=== PATIENT | male | born 1965 | race African-American/Black ===

== ENCOUNTER 2016-06-10 19:28 | Inpatient (IN) | payer OTHER ==
[2016-06-10 20:49] VITALS: BMI 29.5
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
[2016-06-10] MEDS ORDERED: hydrOXYzine PAMOATE 50 MG CAPSULE (FP) PO PRN (21:15)
[2016-06-10] MEDS ORDERED: LOPERAMIDE HCL 2 MG CAPSULE PO PRN (21:15)
[2016-06-10] MEDS ORDERED: MAG HYDROX/AL HYDROX/SIMETH 30 ML UNIT-DOSE CUP PO PRN (21:15)
[2016-06-10] MEDS ORDERED: MAGNESIUM HYDROX 2400MG/30ML ORAL SUSPENSION 30 ML CUP PO PRN (21:15)
[2016-06-10] MEDS ORDERED: P-EPHED 60MG/TRIPROLIDI 2.5MG TABLET PO PRN (21:15)
[2016-06-10] MEDS ORDERED: MENTHOL/PHENOL 1 EACH UD MM PRN (21:15)
[2016-06-10] MEDS ORDERED: diphenhydrAMINE HCL 50 MG CAPSULE PO PRN (21:15)
[2016-06-10] MEDS ORDERED: MAGNESIUM CITRATE 300 ML BOTTLE PO PRN (21:15)
[2016-06-10] MEDS ORDERED: chlordiazePOXIDE HCL 25 MG CAPSULE PO PRN (21:15)
[2016-06-10] MEDS ORDERED: guaiFENesin/D-METHORPHAN HB 10 ML UNIT-DOSE CUPS PO PRN (21:15)
[2016-06-10] MEDS ORDERED: ACETAMINOPHEN 325 MG TABLET (FP) PO PRN (21:15)
[2016-06-10] MEDS ORDERED: ALBUTEROL SO4 6.7 GM HFA INHALER IH PRN (21:28)
[2016-06-10] MEDS: METOPROLOL TARTRATE 25 MG TABLET (FP) PO SCH (23:02)
[2016-06-10] MEDS: ATORVASTATIN CA 40 MG TABLET (FP) PO SCH (23:02)
[2016-06-10] MEDS: THIAMINE HCL 100 MG TABLET (FP) PO SCH (23:02)
[2016-06-10] MEDS: chlordiazePOXIDE HCL 25 MG CAPSULE PO SCH (23:02)
[2016-06-10 23:36] LABS: URINE APPEARANCE CLEAR; URINE BILIRUBIN NEGATIVE (NEGATIVE); URINE BLOOD NEGATIVE (NEGATIVE); URINE COLOR YELLOW; URINE GLUCOSE (UA) 1+ (NEGATIVE); URINE KETONE NEGATIVE (NEGATIVE); URINE LEUK ESTERASE NEGATIVE (NEGATIVE); URINE NITRITE NEGATIVE (NEGATIVE); URINE UROBILINOGEN NEGATIVE E.U./dl (0.2-1.0)
[2016-06-10 23:42] LABS: URINE PROTEIN 2+ (NEGATIVE)
[2016-06-10 23:43] LABS: URINE MUCUS RARE; URINE RBC 2 /hpf (0-3); URINE WBC 1 /hpf (3-5)
[2016-06-11] MEDS: chlordiazePOXIDE HCL 25 MG CAPSULE PO SCH ×3 (05:44→17:54)
--- NOTE | 2016-06-11 10:06 | EKG ---
Test Reason : Blood Pressure : / mmHG Vent. Rate : 064 BPM Atrial Rate : 064 BPM P-R Int : 162 ms QRS Dur : 092 ms QT Int : 406 ms P-R-T Axes : 076 063 053 degrees QTc Int : 418 ms NORMAL SINUS RHYTHM NORMAL ECG NO PREVIOUS ECGS AVAILABLE Confirmed by MIRACLE DRISCOLL MD ([id number]) on 06/11/2016 10:06:11 AM Referred By: Confirmed By:MIRACLE DRISCOLL MD
[2016-06-11 10:27] LABS: MCH 29.6 pg (25.7-33.7); MCHC 32.7 g/dl (32.0-35.9); MEAN CELL VOLUME 90.4 fl (80-96); MEAN PLT VOLUME 7.8 fl (7.5-11.1); PLATELET COUNT 200 K/MM3 (134-434); RDW 14.3 % (11.9-15.9); WHITE BLOOD COUNT 5.9 K/mm3 (4.0-10.0)
[2016-06-11] MEDS: ASPIRIN 81 MG CHEWABLE TABLETS PO SCH (10:49)
[2016-06-11] MEDS: CLOPIDOGREL BISULFATE 75 MG TABLET (FP) PO SCH (10:49)
[2016-06-11] MEDS: PRENATAL VITAMINS W/ FOLIC ACID TABLET (FP) PO SCH (10:50)
[2016-06-11] MEDS: METOPROLOL TARTRATE 25 MG TABLET (FP) PO SCH ×2 (10:52→22:54)
[2016-06-11] MEDS: LISINOPRIL 5 MG TABLET (FP) PO SCH (10:52)
[2016-06-11 11:12] LABS: ALBUMIN 3.5 g/dl (3.4-5.0); BILIRUBIN,TOTAL 0.5 mg/dL (0.2-1.0); CALCIUM 8.5 mg/dL (8.5-10.1); COCKROFT - GAULT 81.79; CREATININE 1.3 mg/dL (0.7-1.3); TOT PROT 7.2 g/dl (6.4-8.2)
--- NOTE | 2016-06-11 12:55 | PN ---
S CIWA - CIWA Score Nausea/Vomitin Muscle Tremors: 2 Anxiety: 2 Agitation: 2 Paroxysmal Sweats: 2 Orientation: 0-Oriented Tacttile Disturbances: 1-Very Mild Itch/Numbness Auditory Disturbances: 0-None Visual Disturbances: 1-Very Mild Sensitivity Headache: 2-Mild CIWA-Ar Total Score: 14 S Progress Note (SOAP) Subjective: sleep interruption, anxiety, shakes, sweats and muscle aches Objective: 06/11/16 12:54 Vital Signs - 8 hr 06/11/16 06/11/16 06:43 09:41 Temperature 96.6 F L 98.1 F Pulse Rate 67 75 Respiratory 18 18 Rate Blood Pressure 112/68 96/63 Laboratory Last Values WBC 5.9 K/mm3 (4.0-10.0) 06/11/16 07:50 RBC 4.74 M/mm3 (4.00-5.60) 06/11/16 07:50 Hgb 14.0 GM/dL (11.7-16.9) D 06/11/16 07:50 Hct 42.8 % (35.4-49) 06/11/16 07:50 MCV 90.4 fl (80-96) 06/11/16 07:50 MCHC 32.7 g/dl (32.0-35.9) 06/11/16 07:50 RDW 14.3 % (11.9-15.9) 06/11/16 07:50 Plt Count 200 K/MM3 (134-434) 06/11/16 07:50 MPV 7.8 fl (7.5-11.1) 06/11/16 07:50 Sodium 140 mmol/L (136-145) 06/11/16 07:50 Potassium 4.3 mmol/L (3.5-5.1) 06/11/16 07:50 Chloride 105 mmol/L (98-107) 06/11/16 07:50 Carbon Dioxide 27 mmol/L (21-32) 06/11/16 07:50 Anion Gap 8 (8-16) 06/11/16 07:50 BUN 15 mg/dL (7-18) 06/11/16 07:50 Creatinine 1.3 mg/dL (0.7-1.3) 06/11/16 07:50 Creat Clearance w eGFR 57.75 (>60) 06/11/16 07:50 Random Glucose 98 mg/dL (74-106) 06/11/16 07:50 Calcium 8.5 mg/dL (8.5-10.1) 06/11/16 07:50 Total Bilirubin 0.5 mg/dL (0.2-1.0) D 06/11/16 07:50 AST 18 U/L (15-37) D 06/11/16 07:50 ALT 18 U/L (12-78) D 06/11/16 07:50 Alkaline Phosphatase 107 U/L (45-117) 06/11/16 07:50 Total Protein 7.2 g/dl (6.4-8.2) 06/11/16 07:50 Albumin 3.5 g/dl (3.4-5.0) 06/11/16 07:50 Urine Color Yellow 06/10/16 23:25 Urine Appearance Clear 06/10/16 23:25 Urine pH 5.0 (5.0-8.0) 06/10/16 23:25 Ur Specific [place] 1.026 (1.001-1.035) 06/10/16 23:25 Urine Protein 2+ (NEGATIVE) H 06/10/16 23:25 Urine Glucose (UA) 1+ (NEGATIVE) H 06/10/16 23:25 Urine Ketones Negative (NEGATIVE) 06/10/16 23:25 Urine Blood Negative (NEGATIVE) 06/10/16 23:25 Urine Nitrite Negative (NEGATIVE) 06/10/16 23:25 Urine Bilirubin Negative (NEGATIVE) 06/10/16 23:25 Urine Urobilinogen Negative E.U./dl (0.2-1.0) 06/10/16 23:25 Ur Leukocyte Esterase Negative (NEGATIVE) 06/10/16 23:25 Urine RBC 2 /hpf (0-3) 06/10/16 23:25 Urine WBC 1 /hpf (3-5) 06/10/16 23:25 Ur Epithelial Cells Rare /hpf (FEW) 06/10/16 23:25 Urine Mucus Rare 06/10/16 23:25 labs noted Assessment: 06/11/16 12:54 withdrawal sx Plan: continue detox
[2016-06-11] MEDS: THIAMINE HCL 100 MG TABLET (FP) PO SCH (22:43)
[2016-06-11] MEDS: chlordiazePOXIDE 5 MG CAPSULE PO SCH (22:43)
[2016-06-11] MEDS: ATORVASTATIN CA 40 MG TABLET (FP) PO SCH (22:43)
[2016-06-12] MEDS: chlordiazePOXIDE 5 MG CAPSULE PO SCH ×3 (05:45→18:13)
[2016-06-12] MEDS: ASPIRIN 81 MG CHEWABLE TABLETS PO SCH (10:48)
[2016-06-12] MEDS: CLOPIDOGREL BISULFATE 75 MG TABLET (FP) PO SCH (10:48)
[2016-06-12] MEDS: METOPROLOL TARTRATE 25 MG TABLET (FP) PO SCH ×2 (10:48→22:47)
[2016-06-12] MEDS: PRENATAL VITAMINS W/ FOLIC ACID TABLET (FP) PO SCH (10:48)
[2016-06-12] MEDS: LISINOPRIL 5 MG TABLET (FP) PO SCH (10:51)
--- NOTE | 2016-06-12 15:13 | PN ---
[facility] CIWA - CIWA Score Nausea/Vomitin-Mild Nausea/No Vomiting Muscle Tremors: 4-Moderate,w/Arms Extend Anxiety: 4-Mod. Anxious/Guarded Agitation: 4-Moderately Restless Paroxysmal Sweats: No Perspiration Orientation: 0-Oriented Tacttile Disturbances: 1-Very Mild Itch/Numbness Auditory Disturbances: 0-None Visual Disturbances: 0-None Headache: 2-Mild CIWA-Ar Total Score: 16 S Progress Note (SOAP) Subjective: Anxious, sweating, nauseous, interrupted sleep Objective: 06/12/16 15:10 Last Vital Signs Temp Pulse Resp BP Pulse Ox 97.1 F L 71 18 110/66 06/12/16 13:17 06/12/16 13:17 06/12/16 13:17 06/12/16 13:17 Laboratory Tests 06/10/16 06/11/16 06/11/16 23:25 07:50 07:50 WBC 5.9 RBC 4.74 Hgb 14.0 D Hct 42.8 MCV 90.4 MCHC 32.7 RDW 14.3 Plt Count 200 MPV 7.8 Sodium 140 Potassium 4.3 Chloride 105 Carbon Dioxide 27 Anion Gap 8 BUN 15 Creatinine 1.3 Creat Clearance w eGFR 57.75 Random Glucose 98 Calcium 8.5 Total Bilirubin 0.5 D AST 18 D ALT 18 D Alkaline Phosphatase 107 Total Protein 7.2 Albumin 3.5 Urine Color Yellow Urine Appearance Clear Urine pH 5.0 Ur Specific [place] 1.026 Urine Protein 2+ H Urine Glucose (UA) 1+ H Urine Ketones Negative Urine Blood Negative Urine Nitrite Negative Urine Bilirubin Negative Urine Urobilinogen Negative Ur Leukocyte Esterase Negative Urine RBC 2 Urine WBC 1 Ur Epithelial Cells Rare Urine Mucus Rare RPR Titer 06/11/16 07:50 WBC RBC Hgb Hct MCV MCHC RDW Plt Count MPV Sodium Potassium Chloride Carbon Dioxide Anion Gap BUN Creatinine Creat Clearance w eGFR Random Glucose Calcium Total Bilirubin AST ALT Alkaline Phosphatase Total Protein Albumin Urine Color Urine Appearance Urine pH Ur Specific [place] Urine Protein Urine Glucose (UA) Urine Ketones Urine Blood Urine Nitrite Urine Bilirubin Urine Urobilinogen Ur Leukocyte Esterase Urine RBC Urine WBC Ur Epithelial Cells Urine Mucus RPR Titer Nonreactive Labs noted: UA with 2+ protein and 1+ glucose Assessment: 06/12/16 15:12 Withdrawal symptoms Noted with proteinuria and glycosuria Plan: Continue detox Proteinuria and glycosuria: encouraged to drink lots of water, repeat UA
[2016-06-12] MEDS: THIAMINE HCL 100 MG TABLET (FP) PO SCH (22:46)
[2016-06-12] MEDS: chlordiazePOXIDE HCL 10 MG CAPSULE PO SCH (22:47)
[2016-06-12] MEDS: ATORVASTATIN CA 40 MG TABLET (FP) PO SCH (22:47)
[2016-06-13] MEDS: chlordiazePOXIDE HCL 10 MG CAPSULE PO SCH ×4 (05:08→16:53)
[2016-06-13] MEDS: ASPIRIN 81 MG CHEWABLE TABLETS PO SCH (10:39)
[2016-06-13] MEDS: PRENATAL VITAMINS W/ FOLIC ACID TABLET (FP) PO SCH (10:39)
[2016-06-13] MEDS: CLOPIDOGREL BISULFATE 75 MG TABLET (FP) PO SCH (10:39)
[2016-06-13] MEDS: LISINOPRIL 5 MG TABLET (FP) PO SCH (10:39)
[2016-06-13] MEDS: METOPROLOL TARTRATE 25 MG TABLET (FP) PO SCH ×2 (10:39→22:19)
--- NOTE | 2016-06-13 16:08 | PN ---
[facility] Progress Note (SOAP) Subjective: Sweating,interrupted sleep,restless Objective: 06/13/16 16:07 Vital Signs - 8 hr 06/13/16 09:36 Temperature 98.1 F Pulse Rate 73 Respiratory 18 Rate Blood Pressure 105/76 Laboratory Last Values WBC 5.9 K/mm3 (4.0-10.0) 06/11/16 07:50 RBC 4.74 M/mm3 (4.00-5.60) 06/11/16 07:50 Hgb 14.0 GM/dL (11.7-16.9) D 06/11/16 07:50 Hct 42.8 % (35.4-49) 06/11/16 07:50 MCV 90.4 fl (80-96) 06/11/16 07:50 MCHC 32.7 g/dl (32.0-35.9) 06/11/16 07:50 RDW 14.3 % (11.9-15.9) 06/11/16 07:50 Plt Count 200 K/MM3 (134-434) 06/11/16 07:50 MPV 7.8 fl (7.5-11.1) 06/11/16 07:50 Sodium 140 mmol/L (136-145) 06/11/16 07:50 Potassium 4.3 mmol/L (3.5-5.1) 06/11/16 07:50 Chloride 105 mmol/L (98-107) 06/11/16 07:50 Carbon Dioxide 27 mmol/L (21-32) 06/11/16 07:50 Anion Gap 8 (8-16) 06/11/16 07:50 BUN 15 mg/dL (7-18) 06/11/16 07:50 Creatinine 1.3 mg/dL (0.7-1.3) 06/11/16 07:50 Creat Clearance w eGFR 57.75 (>60) 06/11/16 07:50 Random Glucose 98 mg/dL (74-106) 06/11/16 07:50 Calcium 8.5 mg/dL (8.5-10.1) 06/11/16 07:50 Total Bilirubin 0.5 mg/dL (0.2-1.0) D 06/11/16 07:50 AST 18 U/L (15-37) D 06/11/16 07:50 ALT 18 U/L (12-78) D 06/11/16 07:50 Alkaline Phosphatase 107 U/L (45-117) 06/11/16 07:50 Total Protein 7.2 g/dl (6.4-8.2) 06/11/16 07:50 Albumin 3.5 g/dl (3.4-5.0) 06/11/16 07:50 Urine Color Yellow 06/10/16 23:25 Urine Appearance Clear 06/10/16 23:25 Urine pH 5.0 (5.0-8.0) 06/10/16 23:25 Ur Specific [place] 1.026 (1.001-1.035) 06/10/16 23:25 Urine Protein 2+ (NEGATIVE) H 06/10/16 23:25 Urine Glucose (UA) 1+ (NEGATIVE) H 06/10/16 23:25 Urine Ketones Negative (NEGATIVE) 06/10/16 23:25 Urine Blood Negative (NEGATIVE) 06/10/16 23:25 Urine Nitrite Negative (NEGATIVE) 06/10/16 23:25 Urine Bilirubin Negative (NEGATIVE) 06/10/16 23:25 Urine Urobilinogen Negative E.U./dl (0.2-1.0) 06/10/16 23:25 Ur Leukocyte Esterase Negative (NEGATIVE) 06/10/16 23:25 Urine RBC 2 /hpf (0-3) 06/10/16 23:25 Urine WBC 1 /hpf (3-5) 06/10/16 23:25 Ur Epithelial Cells Rare /hpf (FEW) 06/10/16 23:25 Urine Mucus Rare 06/10/16 23:25 RPR Titer Nonreactive (NONREACTIVE) 06/11/16 07:50 labs noted Assessment: 06/13/16 16:08 Withdrawal sx. Plan: Continue detox
[2016-06-13] MEDS: THIAMINE HCL 100 MG TABLET (FP) PO SCH (22:18)
[2016-06-13] MEDS: ATORVASTATIN CA 40 MG TABLET (FP) PO SCH (22:19)
[2016-06-14 06:27] VITALS: BP 113/80; PULSE 74; TEMP 96.5
--- NOTE | 2016-06-14 10:30 | DS ---
[facility] Detox Discharge Summary Admission Date: 06/10/16 Discharge Date: 06/14/16 - History Present History: Alcohol Dependence, Cocaine Dependence Pertinent Past History: Asthma HTN Hyperlipidemia - Physical Exam Results Vital Signs: Vital Signs Temperature 96.5 F L 06/14/16 06:27 Pulse Rate 74 06/14/16 06:27 Respiratory Rate 18 06/14/16 06:27 Blood Pressure 113/80 06/14/16 06:27 O2 Sat by Pulse Oximetry (%) Pertinent Admission Physical Exam Findings: Withdrawal sx. Laboratory Last Values WBC 5.9 K/mm3 (4.0-10.0) 06/11/16 07:50 RBC 4.74 M/mm3 (4.00-5.60) 06/11/16 07:50 Hgb 14.0 GM/dL (11.7-16.9) D 06/11/16 07:50 Hct 42.8 % (35.4-49) 06/11/16 07:50 MCV 90.4 fl (80-96) 06/11/16 07:50 MCHC 32.7 g/dl (32.0-35.9) 06/11/16 07:50 RDW 14.3 % (11.9-15.9) 06/11/16 07:50 Plt Count 200 K/MM3 (134-434) 06/11/16 07:50 MPV 7.8 fl (7.5-11.1) 06/11/16 07:50 Sodium 140 mmol/L (136-145) 06/11/16 07:50 Potassium 4.3 mmol/L (3.5-5.1) 06/11/16 07:50 Chloride 105 mmol/L (98-107) 06/11/16 07:50 Carbon Dioxide 27 mmol/L (21-32) 06/11/16 07:50 Anion Gap 8 (8-16) 06/11/16 07:50 BUN 15 mg/dL (7-18) 06/11/16 07:50 Creatinine 1.3 mg/dL (0.7-1.3) 06/11/16 07:50 Creat Clearance w eGFR 57.75 (>60) 06/11/16 07:50 Random Glucose 98 mg/dL (74-106) 06/11/16 07:50 Calcium 8.5 mg/dL (8.5-10.1) 06/11/16 07:50 Total Bilirubin 0.5 mg/dL (0.2-1.0) D 06/11/16 07:50 AST 18 U/L (15-37) D 06/11/16 07:50 ALT 18 U/L (12-78) D 06/11/16 07:50 Alkaline Phosphatase 107 U/L (45-117) 06/11/16 07:50 Total Protein 7.2 g/dl (6.4-8.2) 06/11/16 07:50 Albumin 3.5 g/dl (3.4-5.0) 06/11/16 07:50 Urine Color Yellow 06/10/16 23:25 Urine Appearance Clear 06/10/16 23:25 Urine pH 5.0 (5.0-8.0) 06/10/16 23:25 Ur Specific [place] 1.026 (1.001-1.035) 06/10/16 23:25 Urine Protein 2+ (NEGATIVE) H 06/10/16 23:25 Urine Glucose (UA) 1+ (NEGATIVE) H 06/10/16 23:25 Urine Ketones Negative (NEGATIVE) 06/10/16 23:25 Urine Blood Negative (NEGATIVE) 06/10/16 23:25 Urine Nitrite Negative (NEGATIVE) 06/10/16 23:25 Urine Bilirubin Negative (NEGATIVE) 06/10/16 23:25 Urine Urobilinogen Negative E.U./dl (0.2-1.0) 06/10/16 23:25 Ur Leukocyte Esterase Negative (NEGATIVE) 06/10/16 23:25 Urine RBC 2 /hpf (0-3) 06/10/16 23:25 Urine WBC 1 /hpf (3-5) 06/10/16 23:25 Ur Epithelial Cells Rare /hpf (FEW) 06/10/16 23:25 Urine Mucus Rare 06/10/16 23:25 RPR Titer Nonreactive (NONREACTIVE) 06/11/16 07:50 labs noted - Treatment Hospital Course: Detox Protocol Followed, Detoxed Safely, Responded well, Discharged Condition Good, Rehab Referral Accepted Patient has Accepted a Rehab Referral to: [facility] - Medication Discharge Medications: Ambulatory Orders Albuterol Sulfate Inhaler - [Ventolin HFA Inhaler -] 2 inh IH Q4H PRN 08/13/12 Aspirin [ASA -] 81 mg PO DAILY 06/11/14 Clopidogrel Bisulfate [Plavix -] 75 mg PO DAILY 06/11/14 Lisinopril [Prinivil -] 2.5 mg PO DAILY 06/11/14 Metoprolol Tartrate [Lopressor -] 25 mg PO BID 06/11/14 Atorvastatin Ca [Lipitor -] 20 mg PO BID 07/23/14 - Diagnosis (1) Alcohol dependence with uncomplicated withdrawal Status: Acute (2) Cocaine dependence Status: Acute Qualifiers: Substance use status: uncomplicated Qualified Code(s): F14.20 - Cocaine dependence, uncomplicated (3) Asthma Status: Chronic Qualifiers: Asthma severity: mild intermittent Asthma complication type: with status asthmaticus Qualified Code(s): J45.22 - Mild intermittent asthma with status asthmaticus (4) CAD (coronary artery disease) Status: Chronic Qualifiers: Coronary Disease-Associated Artery/Lesion type: [place] artery [place] vs. transplanted heart: [place] heart Associated angina: without angina Qualified Code(s): I25.10 - Atherosclerotic heart disease of [place] coronary artery without angina pectoris (5) Cannabis dependence, uncomplicated Status: Acute (6) Cocaine dependence, uncomplicated Status: Acute (7) Hyperlipidemia Status: Acute Qualifiers: Hyperlipidemia type: pure hypercholesterolemia Qualified Code(s): E78.00 - Pure hypercholesterolemia, unspecified; E78.0 - Pure hypercholesterolemia (8) Hypertension Status: Acute Qualifiers: Hypertension type: essential hypertension Qualified Code(s): I10 - Essential (primary) hypertension - AMA Did Patient Leave Against Medical Advice: No
== END 2016-06-14 09:00 | disposition home or self-care (01) | DRG 774 ==
LOC: YASAS 19:28 → Y3N 21:20
PROVIDERS: ADMIT Internal Medicine; ATTEND Internal Medicine
PROC: HZ2ZZZZ Detoxification Services for Substance Abuse Treatment (ICD-10-PCS; principal; 2016-06-14)
DX: F10.230 Alcohol dependence with withdrawal, uncomplicated (principal); F14.20 Cocaine dependence, uncomplicated; F12.20 Cannabis dependence, uncomplicated; I25.10 Atherosclerotic heart disease of native coronary artery without angina pectoris; I10 Essential (primary) hypertension; E78.00 Pure hypercholesterolemia, unspecified; J45.22 Mild intermittent asthma with status asthmaticus; R76.11 Nonspecific reaction to tuberculin skin test without active tuberculosis
CPT/HCPCS: 36415; 80053; 81003; 81015; 85027; 86593; 93005; 93010

== ENCOUNTER 2016-11-26 10:52 | Inpatient (IN) | payer OTHER ==
[2016-11-26 12:18] VITALS: BMI 29.5
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
[2016-11-26] MEDS ORDERED: P-EPHED 60MG/TRIPROLIDI 2.5MG TABLET PO PRN (12:58)
[2016-11-26] MEDS ORDERED: chlordiazePOXIDE HCL 25 MG CAPSULE PO PRN (12:58)
[2016-11-26] MEDS ORDERED: MENTHOL/PHENOL 1 EACH UD MM PRN (12:58)
[2016-11-26] MEDS ORDERED: MAGNESIUM CITRATE 300 ML BOTTLE PO PRN (12:58)
[2016-11-26] MEDS ORDERED: hydrOXYzine PAMOATE 50 MG CAPSULE (FP) PO PRN (12:58)
[2016-11-26] MEDS ORDERED: guaiFENesin/D-METHORPHAN HB 10 ML UNIT-DOSE CUPS PO PRN (12:58)
[2016-11-26] MEDS ORDERED: MAGNESIUM HYDROX 2400MG/30ML ORAL SUSPENSION 30 ML CUP PO PRN (12:58)
[2016-11-26] MEDS ORDERED: MAG HYDROX/AL HYDROX/SIMETH 30 ML UNIT-DOSE CUP PO PRN (12:58)
[2016-11-26] MEDS ORDERED: LOPERAMIDE HCL 2 MG CAPSULE PO PRN (12:58)
[2016-11-26] MEDS ORDERED: ACETAMINOPHEN 325 MG TABLET (FP) PO PRN (12:58)
[2016-11-26] MEDS ORDERED: ALBUTEROL SO4 18 GM HFA INHALER IH PRN (13:00)
[2016-11-26] MEDS ORDERED: chlordiazePOXIDE HCL 25 MG CAPSULE PO ONE (14:00)
[2016-11-26 18:16] LABS: URINE APPEARANCE SLCLOUDY; URINE BILIRUBIN NEGATIVE (NEGATIVE); URINE BLOOD 1+ (NEGATIVE); URINE COLOR YELLOW; URINE GLUCOSE (UA) NEGATIVE (NEGATIVE); URINE KETONE NEGATIVE (NEGATIVE); URINE NITRITE NEGATIVE (NEGATIVE)
[2016-11-26 18:19] LABS: URINE PROTEIN 2+ (NEGATIVE)
[2016-11-26 18:29] LABS: GRANULAR CASTS 8 /lpf; URINE BACTERIA FEW /hpf (NONE SEEN); URINE HYALINE CAST 5 /lpf; URINE MUCUS MODERATE; URINE RBC <1 /hpf (0-3)
--- NOTE | 2016-11-26 19:38 | EKG ---
Test Reason : Blood Pressure : / mmHG Vent. Rate : 068 BPM Atrial Rate : 068 BPM P-R Int : 158 ms QRS Dur : 090 ms QT Int : 406 ms P-R-T Axes : 079 056 044 degrees QTc Int : 431 ms NORMAL SINUS RHYTHM NORMAL ECG WHEN COMPARED WITH ECG OF 10-JUN-2016 22:11, NO SIGNIFICANT CHANGE WAS FOUND Confirmed by HECTOR VILLAGOMEZ MD ([id number]) on 11/26/2016 7:38:10 PM Referred By: Confirmed By:HECTOR VILLAGOMEZ MD
[2016-11-26] MEDS: chlordiazePOXIDE HCL 25 MG CAPSULE PO SCH ×2 (19:41→22:30)
[2016-11-26] MEDS: ATORVASTATIN CA 20 MG TABLET (FP) PO SCH (22:30)
[2016-11-26] MEDS: METOPROLOL TARTRATE 25 MG TABLET (FP) PO SCH (22:30)
[2016-11-26] MEDS: THIAMINE HCL 100 MG TABLET (FP) PO SCH (22:30)
[2016-11-26 22:51] LABS: URINE LEUK ESTERASE Negative (NEGATIVE)
[2016-11-27] MEDS: chlordiazePOXIDE HCL 25 MG CAPSULE PO SCH ×5 (05:20→23:07)
[2016-11-27] MEDS ORDERED: LISINOPRIL PO SCH (10:00)
[2016-11-27] MEDS: METOPROLOL TARTRATE 25 MG TABLET (FP) PO SCH ×2 (10:53→22:06)
[2016-11-27] MEDS: LISINOPRIL 5 MG TABLET (FP) PO SCH (10:53)
[2016-11-27] MEDS: ASPIRIN 81 MG CHEWABLE TABLETS PO SCH (10:53)
[2016-11-27] MEDS: CLOPIDOGREL BISULFATE 75 MG TABLET (FP) PO SCH (10:53)
[2016-11-27] MEDS: PRENATAL VITAMINS W/ FOLIC ACID TABLET (FP) PO SCH (10:54)
--- NOTE | 2016-11-27 14:47 | PN ---
[facility] CIWA - CIWA Score Nausea/Vomitin-No Nausea/No Vomiting Muscle Tremors: 4-Moderate,w/Arms Extend Anxiety: 3 Agitation: 3 Paroxysmal Sweats: 3 Orientation: 0-Oriented Tacttile Disturbances: 0-None Auditory Disturbances: 0-None Visual Disturbances: 0-None Headache: 0-None Present CIWA-Ar Total Score: 13 BHS Progress Note (SOAP) Subjective: Anxiety,tremors,sweating,interrupted sleep,restless Objective: 11/27/16 14:46 Vital Signs - 8 hr 11/27/16 09:13 Temperature 97 F L Pulse Rate 86 Respiratory 18 Rate Blood Pressure 103/68 Laboratory Last Values Urine Color Yellow 11/26/16 14:40 Urine Appearance Slcloudy 11/26/16 14:40 Urine pH 5.0 (5.0-8.0) 11/26/16 14:40 Ur Specific [place] >= 1.030 (1.005-1.025) H 11/26/16 14:40 Urine Protein 2+ (NEGATIVE) H 11/26/16 14:40 Urine Glucose (UA) Negative (NEGATIVE) 11/26/16 14:40 Urine Ketones Negative (NEGATIVE) 11/26/16 14:40 Urine Blood 1+ (NEGATIVE) H 11/26/16 14:40 Urine Nitrite Negative (NEGATIVE) 11/26/16 14:40 Urine Bilirubin Negative (NEGATIVE) 11/26/16 14:40 Urine Urobilinogen 2.0 mg/dL (0.2-1.0) 11/26/16 14:40 Ur Leukocyte Esterase Negative (NEGATIVE) 11/26/16 14:40 Urine RBC <1 /hpf (0-3) 11/26/16 14:40 Urine Bacteria Few /hpf (NONE SEEN) 11/26/16 14:40 Hyaline Casts 5 /lpf 11/26/16 14:40 Granular Casts 8 /lpf 11/26/16 14:40 Urine Mucus Moderate 11/26/16 14:40 repeat u/a Assessment: 11/27/16 14:46 Withdrawal sx. Plan: Continue detox
[2016-11-27] MEDS: THIAMINE HCL 100 MG TABLET (FP) PO SCH (22:06)
[2016-11-27] MEDS: ATORVASTATIN CA 20 MG TABLET (FP) PO SCH (22:06)
[2016-11-27] MEDS: diphenhydrAMINE HCL 50 MG CAPSULE PO PRN (22:07)
[2016-11-28] MEDS: chlordiazePOXIDE HCL 25 MG CAPSULE PO SCH ×2 (06:20→10:36)
--- NOTE | 2016-11-28 09:52 | PN ---
S CIWA - CIWA Score Nausea/Vomitin Muscle Tremors: 4-Moderate,w/Arms Extend Anxiety: 4-Mod. Anxious/Guarded Agitation: 4-Moderately Restless Paroxysmal Sweats: 3 Orientation: 0-Oriented Tacttile Disturbances: 1-Very Mild Itch/Numbness Auditory Disturbances: 0-None Visual Disturbances: 0-None Headache: 1-Very Mild CIWA-Ar Total Score: 20 BHS Progress Note (SOAP) Subjective: nausea, sweats, interrupted sleep, anxiety, tremors Objective: 11/28/16 09:52 Vital Signs - 8 hr 11/28/16 11/28/16 03:29 06:20 Respiratory 18 18 Rate Vital Signs - 24 hr 11/27/16 11/27/16 11/27/16 17:33 18:00 21:44 Temperature 98.1 F 97.9 F 97.8 F Pulse Rate 70 77 87 Respiratory 18 16 16 Rate Blood Pressure 110/63 106/56 124/72 11/28/16 11/28/16 11/28/16 00:51 03:29 06:20 Temperature Pulse Rate Respiratory 18 18 18 Rate Blood Pressure Laboratory Tests 11/26/16 14:40 Urine Color Yellow Urine Appearance Slcloudy Urine pH 5.0 Ur Specific [place] >= 1.030 H Urine Protein 2+ H Urine Glucose (UA) Negative Urine Ketones Negative Urine Blood 1+ H Urine Nitrite Negative Urine Bilirubin Negative Urine Urobilinogen 2.0 Ur Leukocyte Esterase Negative Urine RBC <1 Urine Bacteria Few Hyaline Casts 5 Granular Casts 8 Urine Mucus Moderate labs still pending Assessment: 11/28/16 09:52 withdrawal sx, abnormal u/a, labs pending Plan: cont detox, fluids, check labs , encoruage ambuatlion
[2016-11-28] MEDS: PRENATAL VITAMINS W/ FOLIC ACID TABLET (FP) PO SCH (10:34)
[2016-11-28] MEDS: ASPIRIN 81 MG CHEWABLE TABLETS PO SCH (10:34)
[2016-11-28] MEDS: CLOPIDOGREL BISULFATE 75 MG TABLET (FP) PO SCH (10:34)
[2016-11-28] MEDS: LISINOPRIL 5 MG TABLET (FP) PO SCH (10:34)
[2016-11-28] MEDS: METOPROLOL TARTRATE 25 MG TABLET (FP) PO SCH (10:35)
[2016-11-28] MEDS: chlordiazePOXIDE 5 MG CAPSULE PO SCH ×2 (17:38→22:02)
[2016-11-28] MEDS: THIAMINE HCL 100 MG TABLET (FP) PO SCH (22:02)
[2016-11-28] MEDS: ATORVASTATIN CA 20 MG TABLET (FP) PO SCH (22:03)
[2016-11-28] MEDS: diphenhydrAMINE HCL 50 MG CAPSULE PO PRN (22:03)
[2016-11-29] MEDS: chlordiazePOXIDE 5 MG CAPSULE PO SCH ×2 (06:12→10:31)
--- NOTE | 2016-11-29 10:10 | PN ---
BHS Progress Note (SOAP) Subjective: ANXIETY,SWEATS,STOMACH ACHE AT UMBILICAL AREA. Objective: 11/29/16 10:06 Vital Signs Temperature 96.9 F L 11/29/16 09:45 Pulse Rate 70 11/29/16 09:45 Respiratory Rate 20 11/29/16 09:45 Blood Pressure 118/76 11/29/16 09:45 O2 Sat by Pulse Oximetry (%) Laboratory Last Values Urine Color Yellow 11/26/16 14:40 Urine Appearance Slcloudy 11/26/16 14:40 Urine pH 5.0 (5.0-8.0) 11/26/16 14:40 Ur Specific [place] >= 1.030 (1.005-1.025) H 11/26/16 14:40 Urine Protein 2+ (NEGATIVE) H 11/26/16 14:40 Urine Glucose (UA) Negative (NEGATIVE) 11/26/16 14:40 Urine Ketones Negative (NEGATIVE) 11/26/16 14:40 Urine Blood 1+ (NEGATIVE) H 11/26/16 14:40 Urine Nitrite Negative (NEGATIVE) 11/26/16 14:40 Urine Bilirubin Negative (NEGATIVE) 11/26/16 14:40 Urine Urobilinogen 2.0 mg/dL (0.2-1.0) 11/26/16 14:40 Ur Leukocyte Esterase Negative (NEGATIVE) 11/26/16 14:40 Urine RBC <1 /hpf (0-3) 11/26/16 14:40 Urine Bacteria Few /hpf (NONE SEEN) 11/26/16 14:40 Hyaline Casts 5 /lpf 11/26/16 14:40 Granular Casts 8 /lpf 11/26/16 14:40 Urine Mucus Moderate 11/26/16 14:40 ABDOMEN: SOFT TO A/P. BS (+). SLIGHT TENDERNESS TO PALPATE AT UMBILICAL AREA. Assessment: 11/29/16 10:07 WITHDRAWAL SX Plan: CONTINUE DETOX [place] PRN
[2016-11-29] MEDS: ASPIRIN 81 MG CHEWABLE TABLETS PO SCH (10:30)
[2016-11-29] MEDS: CLOPIDOGREL BISULFATE 75 MG TABLET (FP) PO SCH (10:30)
[2016-11-29] MEDS: PRENATAL VITAMINS W/ FOLIC ACID TABLET (FP) PO SCH (10:30)
[2016-11-29] MEDS: LISINOPRIL 5 MG TABLET (FP) PO SCH (10:31)
[2016-11-29] MEDS ORDERED: chlordiazePOXIDE HCL 10 MG CAPSULE PO SCH (17:00)
[2016-11-29 17:21] VITALS: BP 110/64; PULSE 69; TEMP 97.6
[2016-11-29 17:28] LABS: URINE APPEARANCE CLEAR; URINE BILIRUBIN NEGATIVE (NEGATIVE); URINE BLOOD NEGATIVE (NEGATIVE); URINE COLOR YELLOW; URINE GLUCOSE (UA) NEGATIVE (NEGATIVE); URINE KETONE NEGATIVE (NEGATIVE); URINE NITRITE NEGATIVE (NEGATIVE); URINE UROBILINOGEN NEGATIVE mg/dL (0.2-1.0)
[2016-11-29 18:28] LABS: URINE PROTEIN 2+ (NEGATIVE)
[2016-11-29 18:54] LABS: URINE BACTERIA RARE /hpf (NONE SEEN); URINE MUCUS RARE; URINE RBC 1 /hpf (0-3); URINE WBC 1 /hpf (3-5)
--- NOTE | 2016-11-29 19:33 | DS ---
[facility] Detox Discharge Summary Admission Date: 11/26/16 Discharge Date: 11/29/16 - History Present History: Alcohol Dependence, Cannabis Dependence, Cocaine Dependence Additional Comments: PATIENT REFUSES TO WAIT FACE TO FACE WITH THE PROVIDER, LEFT THE FACILITY PROMPTLY Pertinent Past History: hyperlipidemia asthma hypertension positive ppd - Physical Exam Results Vital Signs: Vital Signs Temperature 97.6 F 11/29/16 17:20 Pulse Rate 69 11/29/16 17:20 Respiratory Rate 20 11/29/16 17:20 Blood Pressure 110/64 11/29/16 17:20 O2 Sat by Pulse Oximetry (%) Pertinent Admission Physical Exam Findings: withdrawal sx Laboratory Last Values Urine Color Yellow 11/29/16 17:00 Urine Appearance Clear 11/29/16 17:00 Urine pH 5.0 (5.0-8.0) 11/29/16 17:00 Ur Specific [place] >= 1.030 (1.005-1.025) H 11/26/16 14:40 Urine Protein 2+ (NEGATIVE) H 11/29/16 17:00 Urine Glucose (UA) Negative (NEGATIVE) 11/29/16 17:00 Urine Ketones Negative (NEGATIVE) 11/29/16 17:00 Urine Blood Negative (NEGATIVE) 11/29/16 17:00 Urine Nitrite Negative (NEGATIVE) 11/29/16 17:00 Urine Bilirubin Negative (NEGATIVE) 11/29/16 17:00 Urine Urobilinogen Negative mg/dL (0.2-1.0) 11/29/16 17:00 Ur Leukocyte Esterase Negative (NEGATIVE) 11/26/16 14:40 Urine RBC 1 /hpf (0-3) 11/29/16 17:00 Urine WBC 1 /hpf (3-5) 11/29/16 17:00 Ur Epithelial Cells Rare /hpf (FEW) 11/29/16 17:00 Urine Bacteria Rare /hpf (NONE SEEN) 11/29/16 17:00 Hyaline Casts 5 /lpf 11/26/16 14:40 Granular Casts 8 /lpf 11/26/16 14:40 Urine Mucus Rare 11/29/16 17:00 lab noted - Treatment Hospital Course: Detox Protocol Followed, Responded well Patient has Accepted a Rehab Referral to: [facility] - Medication Discharge Medications: Ambulatory Orders Albuterol Sulfate Inhaler - [Ventolin HFA Inhaler -] 2 inh IH Q4H PRN 10/03/11 Aspirin [ASA -] 81 mg PO DAILY 06/11/14 Clopidogrel Bisulfate [Plavix -] 75 mg PO DAILY 06/11/14 Lisinopril [Prinivil -] 2.5 mg PO DAILY 06/11/14 Atorvastatin Ca [Lipitor -] 20 mg PO HS 07/23/14 - Diagnosis (1) Alcohol dependence with uncomplicated withdrawal Status: Acute (2) Cocaine dependence, uncomplicated Status: Chronic (3) Asthma Status: Chronic Qualifiers: Asthma severity: mild Asthma complication type: uncomplicated (4) Cannabis dependence, uncomplicated Status: Chronic (5) Hyperlipidemia Status: Chronic Qualifiers: Hyperlipidemia type: pure hypercholesterolemia Qualified Code(s): E78.00 - Pure hypercholesterolemia, unspecified; E78.00 - Pure hypercholesterolemia, unspecified; E78.00 - Pure hypercholesterolemia, unspecified; E78.0 - Pure hypercholesterolemia (6) Hypertension Status: Chronic Qualifiers: Hypertension type: essential hypertension Qualified Code(s): I10 - Essential (primary) hypertension; I10 - Essential (primary) hypertension; I10 - Essential (primary) hypertension (7) PPD positive, treated Status: Chronic - AMA Did Patient Leave Against Medical Advice: Yes
[2016-11-29 22:20] LABS: URINE LEUK ESTERASE Negative (NEGATIVE)
== END 2016-11-29 18:50 | disposition left against medical advice (07) | DRG 770 ==
LOC: YASAS 10:52 → Y3N 13:26
PROVIDERS: ADMIT Internal Medicine; ATTEND Internal Medicine
PROC: HZ2ZZZZ Detoxification Services for Substance Abuse Treatment (ICD-10-PCS; principal; 2016-11-26)
DX: F10.230 Alcohol dependence with withdrawal, uncomplicated (principal); F14.20 Cocaine dependence, uncomplicated; F12.20 Cannabis dependence, uncomplicated; I25.10 Atherosclerotic heart disease of native coronary artery without angina pectoris; J45.20 Mild intermittent asthma, uncomplicated; E78.5 Hyperlipidemia, unspecified; I10 Essential (primary) hypertension; R76.11 Nonspecific reaction to tuberculin skin test without active tuberculosis; R82.90 Unspecified abnormal findings in urine; Z95.5 Presence of coronary angioplasty implant and graft; Z87.891 Personal history of nicotine dependence
CPT/HCPCS: 81003; 81015; 93005; 93010

== ENCOUNTER 2017-04-07 08:31 | Inpatient (IN) | payer OTHER ==
[2017-04-07 10:32] VITALS: BMI 28.7
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
[2017-04-07] MEDS ORDERED: MAGNESIUM HYDROX 2400MG/30ML ORAL SUSPENSION 30 ML CUP PO PRN (11:09)
[2017-04-07] MEDS ORDERED: MAGNESIUM CITRATE 300 ML BOTTLE PO PRN (11:09)
[2017-04-07] MEDS ORDERED: ACETAMINOPHEN 325 MG TABLET (FP) PO PRN (11:09)
[2017-04-07] MEDS ORDERED: diazePAM 5 MG TABLET PO PRN (11:09)
[2017-04-07] MEDS ORDERED: MAG HYDROX/AL HYDROX/SIMETH 30 ML UNIT-DOSE CUP PO PRN (11:09)
[2017-04-07] MEDS ORDERED: IBUPROFEN 400 MG TABLET (FP) PO PRN (11:09)
[2017-04-07] MEDS ORDERED: guaiFENesin/D-METHORPHAN HB 10 ML UNIT-DOSE CUPS PO PRN (11:09)
[2017-04-07] MEDS ORDERED: LOPERAMIDE HCL 2 MG CAPSULE PO PRN (11:09)
[2017-04-07] MEDS ORDERED: P-EPHED 60MG/TRIPROLIDI 2.5MG TABLET PO PRN (11:09)
[2017-04-07] MEDS ORDERED: hydrOXYzine PAMOATE 50 MG CAPSULE (FP) PO PRN (11:09)
[2017-04-07] MEDS ORDERED: MENTHOL/PHENOL 1 EACH UD MM PRN (11:09)
[2017-04-07] MEDS ORDERED: ALBUTEROL SO4 18 GM HFA INHALER IH PRN (11:10)
[2017-04-07] MEDS ORDERED: diazePAM 5 MG TABLET PO ONE (11:45)
[2017-04-07] MEDS: diazePAM 5 MG TABLET PO SCH ×2 (13:27→22:18)
[2017-04-07 14:19] LABS: HEMOGLOBIN 12.8 GM/dL (11.7-16.9); MCH 28.8 pg (25.7-33.7); MCHC 31.9 g/dl (32.0-35.9); MEAN CELL VOLUME 90.1 fl (80-96); MEAN PLT VOLUME 8.2 fl (7.5-11.1); PLATELET COUNT 208 K/MM3 (134-434); RBC 4.44 M/mm3 (4.00-5.60); RDW 15.4 % (11.9-15.9); WHITE BLOOD COUNT 5.5 K/mm3 (4.0-10.0)
[2017-04-07 14:48] LABS: ALBUMIN 3.5 g/dl (3.4-5.0); ALK PHOS 95 U/L (45-117); ANION GAP 8 (8-16); BILIRUBIN,TOTAL 0.7 mg/dL (0.2-1.0); BLOOD UREA NITROGEN 17 mg/dL (7-18); CALCIUM 8.8 mg/dL (8.5-10.1); CHLORIDE 106 mmol/L (98-107); CO2 28 mmol/L (21-32); CREATININE 1.4 mg/dL (0.7-1.3); GLUCOSE,RANDOM 108 mg/dL (74-106); POTASSIUM 3.8 mmol/L (3.5-5.1); SGOT/AST 18 U/L (15-37); SGPT/ALT 19 U/L (12-78); SODIUM 142 mmol/L (136-145); TOT PROT 6.9 g/dl (6.4-8.2)
[2017-04-07 16:54] LABS: URINE APPEARANCE CLEAR; URINE BILIRUBIN NEGATIVE (NEGATIVE); URINE BLOOD NEGATIVE (NEGATIVE); URINE COLOR DKYELLOW; URINE GLUCOSE (UA) NEGATIVE (NEGATIVE); URINE KETONE NEGATIVE (NEGATIVE); URINE LEUK ESTERASE NEGATIVE (NEGATIVE); URINE NITRITE NEGATIVE (NEGATIVE); URINE UROBILINOGEN 4.0 E.U/dl mg/dL (0.2-1.0)
[2017-04-07 16:56] LABS: URINE PROTEIN 2+ (NEGATIVE)
[2017-04-07 17:04] LABS: URINE BACTERIA RARE /hpf (NONE SEEN); URINE MUCUS RARE
[2017-04-07] MEDS: ATORVASTATIN CA 20 MG TABLET (FP) PO SCH (22:19)
[2017-04-07] MEDS: THIAMINE HCL 100 MG TABLET (FP) PO SCH (22:19)
[2017-04-08] MEDS: diazePAM 5 MG TABLET PO SCH ×3 (05:54→22:11)
[2017-04-08] MEDS: PRENATAL VITAMINS W/ FOLIC ACID TABLET (FP) PO SCH (10:13)
[2017-04-08] MEDS: ASPIRIN 81 MG CHEWABLE TABLETS PO SCH (10:13)
[2017-04-08] MEDS: CLOPIDOGREL BISULFATE 75 MG TABLET (FP) PO SCH (10:13)
[2017-04-08] MEDS ORDERED: FLUCONAZOLE 150 MG TABLET PO ONE (12:00)
--- NOTE | 2017-04-08 12:21 | EKG ---
Test Reason : Blood Pressure : / mmHG Vent. Rate : 078 BPM Atrial Rate : 078 BPM P-R Int : 158 ms QRS Dur : 090 ms QT Int : 390 ms P-R-T Axes : 079 058 048 degrees QTc Int : 444 ms NORMAL SINUS RHYTHM NORMAL ECG WHEN COMPARED WITH ECG OF 26-NOV-2016 14:37, NO SIGNIFICANT CHANGE WAS FOUND Confirmed by EWA CALLES MD ([id number]) on 04/08/2017 12:20:54 PM Referred By: Confirmed By:EWA CALLES MD
--- NOTE | 2017-04-08 17:35 | PN ---
[facility] CIWA - CIWA Score Nausea/Vomitin-No Nausea/No Vomiting Muscle Tremors: 2 Anxiety: 4-Mod. Anxious/Guarded Agitation: 3 Paroxysmal Sweats: 2 Orientation: 0-Oriented Tacttile Disturbances: 0-None Auditory Disturbances: 2-Mild Harshness/Frighten Visual Disturbances: 3-Moderate Sensitivity Headache: 0-None Present CIWA-Ar Total Score: 16 S Progress Note (SOAP) Subjective: Interrupted Sleep, Sweating, Fatigue, Anxious. Objective: PT. A & O X 3. NO ACUTE DISTRESS. 04/08/17 17:34 Vital Signs Temperature 98.7 F 04/08/17 10:07 Pulse Rate 64 04/08/17 10:07 Respiratory Rate 18 04/08/17 10:07 Blood Pressure 118/73 04/08/17 10:07 O2 Sat by Pulse Oximetry (%) Laboratory Tests 04/07/17 04/07/17 04/07/17 11:40 11:40 11:40 WBC 5.5 RBC 4.44 Hgb 12.8 Hct 40.0 MCV 90.1 MCH 28.8 MCHC 31.9 L RDW 15.4 Plt Count 208 MPV 8.2 Sodium 142 Potassium 3.8 Chloride 106 Carbon Dioxide 28 Anion Gap 8 BUN 17 Creatinine 1.4 H Creat Clearance w eGFR 52.81 Random Glucose 108 H Calcium 8.8 Total Bilirubin 0.7 D AST 18 ALT 19 Alkaline Phosphatase 95 Total Protein 6.9 Albumin 3.5 Urine Color Urine Appearance Urine pH Ur Specific [place] Urine Protein Urine Glucose (UA) Urine Ketones Urine Blood Urine Nitrite Urine Bilirubin Urine Urobilinogen Ur Leukocyte Esterase Urine WBC (Auto) Urine RBC (Auto) Urine Bacteria Urine Mucus RPR Titer HIV 1&2 Antibody Screen Negative HIV P24 Antigen Negative 04/07/17 04/07/17 11:40 15:00 WBC RBC Hgb Hct MCV MCH MCHC RDW Plt Count MPV Sodium Potassium Chloride Carbon Dioxide Anion Gap BUN Creatinine Creat Clearance w eGFR Random Glucose Calcium Total Bilirubin AST ALT Alkaline Phosphatase Total Protein Albumin Urine Color Dkyellow Urine Appearance Clear Urine pH 5.0 Ur Specific [place] 1.028 Urine Protein 2+ H Urine Glucose (UA) Negative Urine Ketones Negative Urine Blood Negative Urine Nitrite Negative Urine Bilirubin Negative Urine Urobilinogen 4.0 e.u/dl Ur Leukocyte Esterase Negative Urine WBC (Auto) 1 Urine RBC (Auto) 1 Urine Bacteria Rare Urine Mucus Rare RPR Titer Nonreactive HIV 1&2 Antibody Screen HIV P24 Antigen LABS NOTED. Assessment: 04/08/17 17:34 WITHDRAWAL SYMPTOMS. Plan: CONTINUE DETOX. INCREASE DAILY PO FLUID INTAKE.
[2017-04-08] MEDS: ATORVASTATIN CA 20 MG TABLET (FP) PO SCH (22:11)
[2017-04-08] MEDS: THIAMINE HCL 100 MG TABLET (FP) PO SCH (22:11)
[2017-04-09] MEDS: ASPIRIN 81 MG CHEWABLE TABLETS PO SCH (10:13)
[2017-04-09] MEDS: PRENATAL VITAMINS W/ FOLIC ACID TABLET (FP) PO SCH (10:13)
[2017-04-09] MEDS: CLOPIDOGREL BISULFATE 75 MG TABLET (FP) PO SCH (10:13)
[2017-04-09] MEDS: diazePAM 5 MG TABLET PO SCH ×2 (10:13→22:46)
--- NOTE | 2017-04-09 15:39 | PN ---
S CIWA - CIWA Score Nausea/Vomitin Muscle Tremors: 3 Anxiety: 3 Agitation: 3 Paroxysmal Sweats: 1-Minimal Palms Moist Orientation: 0-Oriented Tacttile Disturbances: 1-Very Mild Itch/Numbness Auditory Disturbances: 1-Very Mild Visual Disturbances: 0-None Headache: 2-Mild CIWA-Ar Total Score: 17 BHS Progress Note (SOAP) Subjective: ALERT,IRRITABLE,ANXIOUS,INTERRUPTED SLEEP,TREMOR Objective: 04/09/17 15:35 Vital Signs Temperature 97.6 F 04/09/17 09:26 Pulse Rate 75 04/09/17 09:26 Respiratory Rate 18 04/09/17 09:26 Blood Pressure 105/67 04/09/17 09:26 O2 Sat by Pulse Oximetry (%) Laboratory Last Values WBC 5.5 K/mm3 (4.0-10.0) 04/07/17 11:40 RBC 4.44 M/mm3 (4.00-5.60) 04/07/17 11:40 Hgb 12.8 GM/dL (11.7-16.9) 04/07/17 11:40 Hct 40.0 % (35.4-49) 04/07/17 11:40 MCV 90.1 fl (80-96) 04/07/17 11:40 MCH 28.8 pg (25.7-33.7) 04/07/17 11:40 MCHC 31.9 g/dl (32.0-35.9) L 04/07/17 11:40 RDW 15.4 % (11.9-15.9) 04/07/17 11:40 Plt Count 208 K/MM3 (134-434) 04/07/17 11:40 MPV 8.2 fl (7.5-11.1) 04/07/17 11:40 Sodium 142 mmol/L (136-145) 04/07/17 11:40 Potassium 3.8 mmol/L (3.5-5.1) 04/07/17 11:40 Chloride 106 mmol/L (98-107) 04/07/17 11:40 Carbon Dioxide 28 mmol/L (21-32) 04/07/17 11:40 Anion Gap 8 (8-16) 04/07/17 11:40 BUN 17 mg/dL (7-18) 04/07/17 11:40 Creatinine 1.4 mg/dL (0.7-1.3) H 04/07/17 11:40 Creat Clearance w eGFR 52.81 (>60) 04/07/17 11:40 Random Glucose 108 mg/dL (74-106) H 04/07/17 11:40 Calcium 8.8 mg/dL (8.5-10.1) 04/07/17 11:40 Total Bilirubin 0.7 mg/dL (0.2-1.0) D 04/07/17 11:40 AST 18 U/L (15-37) 04/07/17 11:40 ALT 19 U/L (12-78) 04/07/17 11:40 Alkaline Phosphatase 95 U/L (45-117) 04/07/17 11:40 Total Protein 6.9 g/dl (6.4-8.2) 04/07/17 11:40 Albumin 3.5 g/dl (3.4-5.0) 04/07/17 11:40 Urine Color Dkyellow 04/07/17 15:00 Urine Appearance Clear 04/07/17 15:00 Urine pH 5.0 (5.0-8.0) 04/07/17 15:00 Ur Specific [place] 1.028 (1.001-1.035) 04/07/17 15:00 Urine Protein 2+ (NEGATIVE) H 04/07/17 15:00 Urine Glucose (UA) Negative (NEGATIVE) 04/07/17 15:00 Urine Ketones Negative (NEGATIVE) 04/07/17 15:00 Urine Blood Negative (NEGATIVE) 04/07/17 15:00 Urine Nitrite Negative (NEGATIVE) 04/07/17 15:00 Urine Bilirubin Negative (NEGATIVE) 04/07/17 15:00 Urine Urobilinogen 4.0 e.u/dl mg/dL (0.2-1.0) 04/07/17 15:00 Ur Leukocyte Esterase Negative (NEGATIVE) 04/07/17 15:00 Urine WBC (Auto) 1 /hpf (3-5) 04/07/17 15:00 Urine RBC (Auto) 1 /hpf (0-3) 04/07/17 15:00 Urine Bacteria Rare /hpf (NONE SEEN) 04/07/17 15:00 Urine Mucus Rare 04/07/17 15:00 RPR Titer Nonreactive (NONREACTIVE) 04/07/17 11:40 HIV 1&2 Antibody Screen Negative 04/07/17 11:40 HIV P24 Antigen Negative 04/07/17 11:40 Assessment: 04/09/17 15:37 WITHDRAWAL SYMPTOM Plan: CONTINUE DETOX,ENCOURAGE ORAL FLUID,REPEAT BMP IN AM
[2017-04-09] MEDS: THIAMINE HCL 100 MG TABLET (FP) PO SCH (22:45)
[2017-04-09] MEDS: ATORVASTATIN CA 20 MG TABLET (FP) PO SCH (22:48)
[2017-04-10 10:48] LABS: CHLORIDE 105 mmol/L (98-107); POTASSIUM 3.9 mmol/L (3.5-5.1); SODIUM 140 mmol/L (136-145)
[2017-04-10 10:52] LABS: ANION GAP 7 (8-16); BLOOD UREA NITROGEN 12 mg/dL (7-18); CALCIUM 8.3 mg/dL (8.5-10.1); CO2 28 mmol/L (21-32); CREATININE 1.2 mg/dL (0.7-1.3); GLUCOSE,RANDOM 78 mg/dL (74-106)
[2017-04-10] MEDS: ASPIRIN 81 MG CHEWABLE TABLETS PO SCH (11:03)
[2017-04-10] MEDS: PRENATAL VITAMINS W/ FOLIC ACID TABLET (FP) PO SCH (11:03)
[2017-04-10] MEDS: diazePAM 5 MG TABLET PO SCH ×2 (11:04→22:23)
[2017-04-10] MEDS: CLOPIDOGREL BISULFATE 75 MG TABLET (FP) PO SCH (11:04)
--- NOTE | 2017-04-10 17:26 | PN ---
BHS Progress Note (SOAP) Subjective: Tremors, Anxious, Body Aches. Objective: PT. A & O X 2 (UNCERTAIN ABOUT CURRENT DAY / DATE). PT. OBSERVED AMBULATING ON UNIT. NO ACUTE DISTRESS. 04/10/17 17:25 Vital Signs Temperature 98.1 F 04/10/17 14:01 Pulse Rate 80 04/10/17 14:01 Respiratory Rate 20 04/10/17 14:01 Blood Pressure 105/78 04/10/17 14:01 O2 Sat by Pulse Oximetry (%) Laboratory Tests 04/07/17 04/07/17 04/07/17 11:40 11:40 11:40 WBC 5.5 RBC 4.44 Hgb 12.8 Hct 40.0 MCV 90.1 MCH 28.8 MCHC 31.9 L RDW 15.4 Plt Count 208 MPV 8.2 Sodium 142 Potassium 3.8 Chloride 106 Carbon Dioxide 28 Anion Gap 8 BUN 17 Creatinine 1.4 H Creat Clearance w eGFR 52.81 Random Glucose 108 H Calcium 8.8 Total Bilirubin 0.7 D AST 18 ALT 19 Alkaline Phosphatase 95 Total Protein 6.9 Albumin 3.5 Urine Color Urine Appearance Urine pH Ur Specific [place] Urine Protein Urine Glucose (UA) Urine Ketones Urine Blood Urine Nitrite Urine Bilirubin Urine Urobilinogen Ur Leukocyte Esterase Urine WBC (Auto) Urine RBC (Auto) Urine Bacteria Urine Mucus RPR Titer HIV 1&2 Antibody Screen Negative HIV P24 Antigen Negative 04/07/17 04/07/17 04/10/17 11:40 15:00 08:10 WBC RBC Hgb Hct MCV MCH MCHC RDW Plt Count MPV Sodium 140 Potassium 3.9 Chloride 105 Carbon Dioxide 28 Anion Gap 7 L BUN 12 D Creatinine 1.2 Creat Clearance w eGFR Random Glucose 78 D Calcium 8.3 L Total Bilirubin AST ALT Alkaline Phosphatase Total Protein Albumin Urine Color Dkyellow Urine Appearance Clear Urine pH 5.0 Ur Specific [place] 1.028 Urine Protein 2+ H Urine Glucose (UA) Negative Urine Ketones Negative Urine Blood Negative Urine Nitrite Negative Urine Bilirubin Negative Urine Urobilinogen 4.0 e.u/dl Ur Leukocyte Esterase Negative Urine WBC (Auto) 1 Urine RBC (Auto) 1 Urine Bacteria Rare Urine Mucus Rare RPR Titer Nonreactive HIV 1&2 Antibody Screen HIV P24 Antigen LABS NOTED. Assessment: 04/10/17 17:25 WITHDRAWAL SYMPTOMS. Plan: CONTINUE DETOX.
[2017-04-10] MEDS: THIAMINE HCL 100 MG TABLET (FP) PO SCH (22:23)
[2017-04-10] MEDS: ATORVASTATIN CA 20 MG TABLET (FP) PO SCH (22:23)
[2017-04-11] MEDS: CLOPIDOGREL BISULFATE 75 MG TABLET (FP) PO SCH (09:24)
[2017-04-11] MEDS: PRENATAL VITAMINS W/ FOLIC ACID TABLET (FP) PO SCH (09:24)
[2017-04-11] MEDS: ASPIRIN 81 MG CHEWABLE TABLETS PO SCH (09:24)
[2017-04-11 09:34] VITALS: BP 113/66; PULSE 96; TEMP 97.7
[2017-04-11] MEDS ORDERED: diazePAM 5 MG TABLET PO SCH (10:00)
--- NOTE | 2017-04-11 10:26 | DS ---
[facility] Detox Discharge Summary Admission Date: 04/07/17 Discharge Date: 04/11/17 - History Present History: Alcohol Dependence Additional Comments: DETOX COMPLETED. ALERT O X 3. NAD. PT REFERRED TO [facility] FOR AFTER CARE PER COUNSELOR GONZALO FISHER Pertinent Past History: SEE DX BELOW - Physical Exam Results Vital Signs: Vital Signs Temperature 97.7 F 04/11/17 09:33 Pulse Rate 96 H 04/11/17 09:33 Respiratory Rate 20 04/11/17 09:33 Blood Pressure 113/66 04/11/17 09:33 O2 Sat by Pulse Oximetry (%) Pertinent Admission Physical Exam Findings: WITHDRAWAL SX Laboratory Last Values WBC 5.5 K/mm3 (4.0-10.0) 04/07/17 11:40 RBC 4.44 M/mm3 (4.00-5.60) 04/07/17 11:40 Hgb 12.8 GM/dL (11.7-16.9) 04/07/17 11:40 Hct 40.0 % (35.4-49) 04/07/17 11:40 MCV 90.1 fl (80-96) 04/07/17 11:40 MCH 28.8 pg (25.7-33.7) 04/07/17 11:40 MCHC 31.9 g/dl (32.0-35.9) L 04/07/17 11:40 RDW 15.4 % (11.9-15.9) 04/07/17 11:40 Plt Count 208 K/MM3 (134-434) 04/07/17 11:40 MPV 8.2 fl (7.5-11.1) 04/07/17 11:40 Sodium 140 mmol/L (136-145) 04/10/17 08:10 Potassium 3.9 mmol/L (3.5-5.1) 04/10/17 08:10 Chloride 105 mmol/L (98-107) 04/10/17 08:10 Carbon Dioxide 28 mmol/L (21-32) 04/10/17 08:10 Anion Gap 7 (8-16) L 04/10/17 08:10 BUN 12 mg/dL (7-18) D 04/10/17 08:10 Creatinine 1.2 mg/dL (0.7-1.3) 04/10/17 08:10 Creat Clearance w eGFR 52.81 (>60) 04/07/17 11:40 Random Glucose 78 mg/dL (74-106) D 04/10/17 08:10 Calcium 8.3 mg/dL (8.5-10.1) L 04/10/17 08:10 Total Bilirubin 0.7 mg/dL (0.2-1.0) D 04/07/17 11:40 AST 18 U/L (15-37) 04/07/17 11:40 ALT 19 U/L (12-78) 04/07/17 11:40 Alkaline Phosphatase 95 U/L (45-117) 04/07/17 11:40 Total Protein 6.9 g/dl (6.4-8.2) 04/07/17 11:40 Albumin 3.5 g/dl (3.4-5.0) 04/07/17 11:40 Urine Color Dkyellow 04/07/17 15:00 Urine Appearance Clear 04/07/17 15:00 Urine pH 5.0 (5.0-8.0) 04/07/17 15:00 Ur Specific [place] 1.028 (1.001-1.035) 04/07/17 15:00 Urine Protein 2+ (NEGATIVE) H 04/07/17 15:00 Urine Glucose (UA) Negative (NEGATIVE) 04/07/17 15:00 Urine Ketones Negative (NEGATIVE) 04/07/17 15:00 Urine Blood Negative (NEGATIVE) 04/07/17 15:00 Urine Nitrite Negative (NEGATIVE) 04/07/17 15:00 Urine Bilirubin Negative (NEGATIVE) 04/07/17 15:00 Urine Urobilinogen 4.0 e.u/dl mg/dL (0.2-1.0) 04/07/17 15:00 Ur Leukocyte Esterase Negative (NEGATIVE) 04/07/17 15:00 Urine WBC (Auto) 1 /hpf (3-5) 04/07/17 15:00 Urine RBC (Auto) 1 /hpf (0-3) 04/07/17 15:00 Urine Bacteria Rare /hpf (NONE SEEN) 04/07/17 15:00 Urine Mucus Rare 04/07/17 15:00 RPR Titer Nonreactive (NONREACTIVE) 04/07/17 11:40 HIV 1&2 Antibody Screen Negative 04/07/17 11:40 HIV P24 Antigen Negative 04/07/17 11:40 - Treatment Hospital Course: Detox Protocol Followed, Detoxed Safely, Responded well, Discharged Condition Good - Medication Discharge Medications: Ambulatory Orders Aspirin [ASA -] 81 mg PO DAILY 06/11/14 Clopidogrel Bisulfate [Plavix -] 75 mg PO DAILY 06/11/14 Lisinopril [Prinivil -] 2.5 mg PO DAILY 06/11/14 Atorvastatin Ca [Lipitor] 20 mg PO HS 07/23/14 Albuterol Sulfate Inhaler - [Ventolin HFA Inhaler -] 1 puff IH Q4H PRN #1 inhaler 11/29/16 - Diagnosis (1) Alcohol dependence with uncomplicated withdrawal Current Visit: Yes Status: Acute (2) Cannabis dependence, uncomplicated Current Visit: Yes Status: Acute (3) Asthma Current Visit: Yes Status: Chronic Qualifiers: Asthma severity: mild Asthma persistence: intermittent Asthma complication type: uncomplicated Qualified Code(s): J45.20 - Mild intermittent asthma, uncomplicated (4) CAD (coronary artery disease) Current Visit: Yes Status: Chronic Qualifiers: Coronary Disease-Associated Artery/Lesion type: unspecified vessel or lesion type [place] vs. transplanted heart: [place] heart Associated angina: without angina Qualified Code(s): I25.10 - Atherosclerotic heart disease of [place] coronary artery without angina pectoris (5) Cocaine dependence, uncomplicated Current Visit: Yes Status: Acute (6) Hyperlipidemia Current Visit: Yes Status: Chronic Qualifiers: Hyperlipidemia type: pure hypercholesterolemia Qualified Code(s): E78.00 - Pure hypercholesterolemia, unspecified (7) Hypertension Current Visit: Yes Status: Chronic Qualifiers: Hypertension type: essential hypertension Qualified Code(s): I10 - Essential (primary) hypertension - AMA Did Patient Leave Against Medical Advice: No
== END 2017-04-11 10:38 | disposition home or self-care (01) | DRG 774 ==
LOC: YASAS 08:31 → Y3N 12:33
PROVIDERS: ADMIT Internal Medicine; ATTEND Internal Medicine
PROC: HZ2ZZZZ Detoxification Services for Substance Abuse Treatment (ICD-10-PCS; principal; 2017-04-07)
DX: F10.230 Alcohol dependence with withdrawal, uncomplicated (principal); F14.20 Cocaine dependence, uncomplicated; F12.20 Cannabis dependence, uncomplicated; F16.10 Hallucinogen abuse, uncomplicated; I10 Essential (primary) hypertension; E78.00 Pure hypercholesterolemia, unspecified; J45.20 Mild intermittent asthma, uncomplicated; I25.10 Atherosclerotic heart disease of native coronary artery without angina pectoris; Z95.5 Presence of coronary angioplasty implant and graft; R76.11 Nonspecific reaction to tuberculin skin test without active tuberculosis; Z87.828 Personal history of other (healed) physical injury and trauma; B35.6 Tinea cruris
CPT/HCPCS: 36415; 80048; 80053; 81003; 81015; 85027; 86593; 87389; 93005; 93010

== ENCOUNTER 2017-05-28 10:21 | Inpatient (IN) | payer OTHER ==
[2017-05-28 10:38] VITALS: BMI 27.8
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
[2017-05-28] MEDS ORDERED: guaiFENesin/D-METHORPHAN HB 10 ML UNIT-DOSE CUPS PO PRN (12:30)
[2017-05-28] MEDS ORDERED: diazePAM 5 MG TABLET PO ONE (12:30)
[2017-05-28] MEDS ORDERED: LOPERAMIDE HCL 2 MG CAPSULE PO PRN (12:30)
[2017-05-28] MEDS ORDERED: MENTHOL/PHENOL 1 EACH UD MM PRN (12:30)
[2017-05-28] MEDS ORDERED: P-EPHED 60MG/TRIPROLIDI 2.5MG TABLET PO PRN (12:30)
[2017-05-28] MEDS ORDERED: MAGNESIUM CITRATE 300 ML BOTTLE PO PRN (12:30)
[2017-05-28] MEDS ORDERED: MAG HYDROX/AL HYDROX/SIMETH 30 ML UNIT-DOSE CUP PO PRN (12:30)
[2017-05-28] MEDS ORDERED: IBUPROFEN 400 MG TABLET (FP) PO PRN (12:30)
[2017-05-28] MEDS ORDERED: ACETAMINOPHEN 325 MG TABLET (FP) PO PRN (14:10)
[2017-05-28] MEDS ORDERED: ALBUTEROL SO4 18 GM HFA INHALER IH PRN (14:10)
[2017-05-28] MEDS ORDERED: MAGNESIUM HYDROX 2400MG/30ML ORAL SUSPENSION 30 ML CUP PO PRN (14:12)
[2017-05-28] MEDS: diazePAM 5 MG TABLET PO SCH ×2 (14:31→22:32)
--- NOTE | 2017-05-28 14:46 | EKG ---
Test Reason : Blood Pressure : / mmHG Vent. Rate : 072 BPM Atrial Rate : 072 BPM P-R Int : 158 ms QRS Dur : 090 ms QT Int : 386 ms P-R-T Axes : 079 064 044 degrees QTc Int : 422 ms NORMAL SINUS RHYTHM NORMAL ECG WHEN COMPARED WITH ECG OF 07-APR-2017 13:52, NO SIGNIFICANT CHANGE WAS FOUND Confirmed by LIONEL DRAKE MD ([id number]) on 05/28/2017 2:45:53 PM Referred By: Confirmed By:LIONEL DRAKE MD
[2017-05-28] MEDS ORDERED: MELATONIN 5 MG TABLETS PO PRN (22:00)
[2017-05-28] MEDS: THIAMINE HCL 100 MG TABLET (FP) PO SCH (22:32)
[2017-05-28] MEDS: ATORVASTATIN CA 20 MG TABLET (FP) PO SCH (22:32)
[2017-05-29 01:20] LABS: URINE APPEARANCE TURBID; URINE BILIRUBIN NEGATIVE (<2.0 mg/dL); URINE BLOOD NEGATIVE (NEGATIVE); URINE COLOR AMBER; URINE GLUCOSE (UA) NEGATIVE (NEGATIVE); URINE KETONE NEGATIVE (NEGATIVE); URINE LEUK ESTERASE NEGATIVE (NEGATIVE); URINE NITRITE NEGATIVE (NEGATIVE)
[2017-05-29 01:23] LABS: URINE PROTEIN 2+ (NEGATIVE)
[2017-05-29] MEDS: diazePAM 5 MG TABLET PO SCH ×3 (05:57→22:11)
[2017-05-29] MEDS: CLOPIDOGREL BISULFATE 75 MG TABLET (FP) PO SCH (10:57)
[2017-05-29] MEDS: PRENATAL VITAMINS W/ FOLIC ACID TABLET (FP) PO SCH (10:57)
[2017-05-29] MEDS: ASPIRIN 81 MG CHEWABLE TABLETS PO SCH (10:57)
--- NOTE | 2017-05-29 11:45 | PN ---
S CIWA - CIWA Score Nausea/Vomitin Muscle Tremors: 3 Anxiety: 3 Agitation: 3 Paroxysmal Sweats: 1-Minimal Palms Moist Orientation: 0-Oriented Tacttile Disturbances: 1-Very Mild Itch/Numbness Auditory Disturbances: 1-Very Mild Visual Disturbances: 1-Very Mild Sensitivity Headache: 2-Mild CIWA-Ar Total Score: 18 BHS Progress Note (SOAP) Subjective: ALERT,IRRITABLE,ANXIOUS,INTERRUPTED SLEEP,TREMOR, Objective: 05/29/17 11:43 Vital Signs Temperature 97.7 F 05/29/17 09:59 Pulse Rate 78 05/29/17 09:59 Respiratory Rate 18 05/29/17 09:59 Blood Pressure 124/70 05/29/17 09:59 O2 Sat by Pulse Oximetry (%) 05/29/17 11:44 EKG NSR,NORMAL ECG 05/29/17 11:44 Laboratory Last Values Urine Color [place] 05/28/17 22:19 Urine Appearance Turbid 05/28/17 22:19 Urine pH 5.0 (5.0-8.0) 05/28/17 22:19 Ur Specific [place] 1.028 (1.001-1.035) 05/28/17 22:19 Urine Protein 2+ (NEGATIVE) H 05/28/17 22:19 Urine Glucose (UA) Negative (NEGATIVE) 05/28/17 22:19 Urine Ketones Negative (NEGATIVE) 05/28/17 22:19 Urine Blood Negative (NEGATIVE) 05/28/17 22:19 Urine Nitrite Negative (NEGATIVE) 05/28/17 22:19 Urine Bilirubin Negative (<2.0 mg/dL) 05/28/17 22:19 Urine Urobilinogen 2.0 mg/dL (0.2-1.0) 05/28/17 22:19 Ur Leukocyte Esterase Negative (NEGATIVE) 05/28/17 22:19 Urine WBC (Auto) None /hpf (3-5) 05/28/17 22:19 Urine RBC (Auto) None /hpf (0-3) 05/28/17 22:19 LABS PENDING Assessment: 05/29/17 11:45 WITHDRAWAL SYMPTOM Plan: CONTINUE DETOX
[2017-05-29 12:35] LABS: ALBUMIN 3.1 g/dl (3.4-5.0); ANION GAP 5 (8-16); BLOOD UREA NITROGEN 11 mg/dL (7-18); CALCIUM 8.3 mg/dL (8.5-10.1); CHLORIDE 107 mmol/L (98-107); CO2 28 mmol/L (21-32); GLUCOSE,RANDOM 112 mg/dL (74-106); POTASSIUM 3.9 mmol/L (3.5-5.1); SODIUM 140 mmol/L (136-145)
[2017-05-29 12:38] LABS: ALK PHOS 97 U/L (45-117); BILIRUBIN,TOTAL 0.3 mg/dL (0.2-1.0); CREATININE 1.1 mg/dL (0.7-1.3); SGOT/AST 12 U/L (15-37); SGPT/ALT 17 U/L (12-78); TOT PROT 6.6 g/dl (6.4-8.2)
[2017-05-29 14:24] LABS: HEMOGLOBIN 13.7 GM/dL (11.7-16.9); MCH 29.6 pg (25.7-33.7); MCHC 32.6 g/dl (32.0-35.9); PLATELET COUNT 173 K/MM3 (134-434); RBC 4.61 M/mm3 (4.00-5.60); RDW 14.4 % (11.9-15.9); WHITE BLOOD COUNT 4.9 K/mm3 (4.0-10.0)
[2017-05-29] MEDS: THIAMINE HCL 100 MG TABLET (FP) PO SCH (22:11)
[2017-05-29] MEDS: ATORVASTATIN CA 20 MG TABLET (FP) PO SCH (22:11)
[2017-05-30] MEDS: diazePAM 5 MG TABLET PO PRN (03:32)
[2017-05-30] MEDS: CLOPIDOGREL BISULFATE 75 MG TABLET (FP) PO SCH (10:48)
[2017-05-30] MEDS: PRENATAL VITAMINS W/ FOLIC ACID TABLET (FP) PO SCH (10:48)
[2017-05-30] MEDS: diazePAM 5 MG TABLET PO SCH ×2 (10:48→22:09)
[2017-05-30] MEDS: ASPIRIN 81 MG CHEWABLE TABLETS PO SCH (10:48)
--- NOTE | 2017-05-30 11:46 | PN ---
S CIWA - CIWA Score Nausea/Vomitin Muscle Tremors: 3 Anxiety: 3 Agitation: 3 Paroxysmal Sweats: 1-Minimal Palms Moist Orientation: 0-Oriented Tacttile Disturbances: 2-Mild Itch/Numbness/Burn Auditory Disturbances: 1-Very Mild Visual Disturbances: 1-Very Mild Sensitivity Headache: 2-Mild CIWA-Ar Total Score: 19 BHS Progress Note (SOAP) Subjective: ALERT,IRRITABLE,ANXIOUS,INTERRUPTED TREMOR,PAIN IN THE BODY Objective: 05/30/17 11:44 Vital Signs Temperature 96.8 F L 05/30/17 10:44 Pulse Rate 103 H 05/30/17 10:44 Respiratory Rate 18 05/30/17 10:44 Blood Pressure 121/73 05/30/17 10:44 O2 Sat by Pulse Oximetry (%) 05/30/17 11:44 Vital Signs Temperature 96.8 F L 05/30/17 10:44 Pulse Rate 103 H 05/30/17 10:44 Respiratory Rate 18 05/30/17 10:44 Blood Pressure 121/73 05/30/17 10:44 O2 Sat by Pulse Oximetry (%) Laboratory Last Values WBC 4.9 K/mm3 (4.0-10.0) 05/29/17 07:00 RBC 4.61 M/mm3 (4.00-5.60) 05/29/17 07:00 Hgb 13.7 GM/dL (11.7-16.9) 05/29/17 07:00 Hct 42.0 % (35.4-49) 05/29/17 07:00 MCV 91.0 fl (80-96) 05/29/17 07:00 MCH 29.6 pg (25.7-33.7) 05/29/17 07:00 MCHC 32.6 g/dl (32.0-35.9) 05/29/17 07:00 RDW 14.4 % (11.9-15.9) 05/29/17 07:00 Plt Count 173 K/MM3 (134-434) 05/29/17 07:00 MPV 8.0 fl (7.5-11.1) 05/29/17 07:00 Sodium 140 mmol/L (136-145) 05/29/17 07:00 Potassium 3.9 mmol/L (3.5-5.1) 05/29/17 07:00 Chloride 107 mmol/L (98-107) 05/29/17 07:00 Carbon Dioxide 28 mmol/L (21-32) 05/29/17 07:00 Anion Gap 5 (8-16) L 05/29/17 07:00 BUN 11 mg/dL (7-18) 05/29/17 07:00 Creatinine 1.1 mg/dL (0.7-1.3) 05/29/17 07:00 Creat Clearance w eGFR > 60 (>60) 05/29/17 07:00 Random Glucose 112 mg/dL (74-106) H D 05/29/17 07:00 Calcium 8.3 mg/dL (8.5-10.1) L 05/29/17 07:00 Total Bilirubin 0.3 mg/dL (0.2-1.0) D 05/29/17 07:00 AST 12 U/L (15-37) L D 05/29/17 07:00 ALT 17 U/L (12-78) 05/29/17 07:00 Alkaline Phosphatase 97 U/L (45-117) 05/29/17 07:00 Total Protein 6.6 g/dl (6.4-8.2) 05/29/17 07:00 Albumin 3.1 g/dl (3.4-5.0) L 05/29/17 07:00 Urine Color [place] 05/28/17 22:19 Urine Appearance Turbid 05/28/17 22:19 Urine pH 5.0 (5.0-8.0) 05/28/17 22:19 Ur Specific [place] 1.028 (1.001-1.035) 05/28/17 22:19 Urine Protein 2+ (NEGATIVE) H 05/28/17 22:19 Urine Glucose (UA) Negative (NEGATIVE) 05/28/17 22:19 Urine Ketones Negative (NEGATIVE) 05/28/17 22: Urine Blood Negative (NEGATIVE) 05/28/17 22: Urine Nitrite Negative (NEGATIVE) 05/28/17 22: Urine Bilirubin Negative (<2.0 mg/dL) 05/28/17 22: Urine Urobilinogen 2.0 mg/dL (0.2-1.0) 05/28/17 22:19 Ur Leukocyte Esterase Negative (NEGATIVE) 05/28/17 22:19 Urine WBC (Auto) None /hpf (3-5) 05/28/17 22:19 Urine RBC (Auto) None /hpf (0-3) 05/28/17 22:19 Assessment: 05/30/17 11:45 WITHDRAWAL SYMPTOM Plan: CONTINUE DETOX
[2017-05-30] MEDS: ATORVASTATIN CA 20 MG TABLET (FP) PO SCH (22:09)
[2017-05-30] MEDS: THIAMINE HCL 100 MG TABLET (FP) PO SCH (22:09)
[2017-05-31] MEDS: diazePAM 5 MG TABLET PO PRN (03:34)
--- NOTE | 2017-05-31 08:27 | PN ---
S Progress Note (SOAP) Subjective: ALERT,NO COMPLAINT Objective: 05/31/17 08:22 Vital Signs Temperature 97.9 F 05/31/17 06:04 Pulse Rate 69 05/31/17 06:04 Respiratory Rate 18 05/31/17 06:04 Blood Pressure 128/79 05/31/17 06:04 O2 Sat by Pulse Oximetry (%) Assessment: 05/31/17 08:22 DETOX COMPLETED,NO WITHDRAWAL SYMPTOM Plan: DISCHARGE TODAY,FOLLOW UP WITH AFTER CARE PROGRAM ARRANGEMENT
--- NOTE | 2017-05-31 08:31 | PN ---
[facility] Progress Note Note: ADDENDUM PLEASE DISREGARD NOTE ON THIS PATIENT AT 08.22AM ,BELONG TO OTHER PATIENT
--- NOTE | 2017-05-31 08:35 | PN ---
S Progress Note (SOAP) Subjective: ALERT,IRRITABLE,INTERRUPTED SLEEP Objective: 05/31/17 08:34 Vital Signs Temperature 97.9 F 05/31/17 06:04 Pulse Rate 69 05/31/17 06:04 Respiratory Rate 18 05/31/17 06:04 Blood Pressure 128/79 05/31/17 06:04 O2 Sat by Pulse Oximetry (%) Assessment: 05/31/17 08:34 WITHDRAWAL SYMPTOM Plan: CONTINUE DETOX,DISCHARGE IN AM
[2017-05-31] MEDS: ASPIRIN 81 MG CHEWABLE TABLETS PO SCH (11:06)
[2017-05-31] MEDS: CLOPIDOGREL BISULFATE 75 MG TABLET (FP) PO SCH (11:06)
[2017-05-31] MEDS: PRENATAL VITAMINS W/ FOLIC ACID TABLET (FP) PO SCH (11:06)
[2017-05-31] MEDS: diazePAM 5 MG TABLET PO SCH ×2 (11:06→22:14)
[2017-05-31] MEDS: THIAMINE HCL 100 MG TABLET (FP) PO SCH (22:14)
[2017-05-31] MEDS: ATORVASTATIN CA 20 MG TABLET (FP) PO SCH (22:14)
[2017-06-01] MEDS ORDERED: diazePAM 5 MG TABLET PO SCH (10:00)
--- NOTE | 2017-06-01 10:06 | PN ---
S Progress Note (SOAP) Subjective: ALERT,NO COMPLAINT Objective: 06/01/17 10:01 Vital Signs Temperature 97.7 F 06/01/17 06:00 Pulse Rate 69 06/01/17 06:00 Respiratory Rate 18 06/01/17 06:00 Blood Pressure 117/68 06/01/17 06:00 O2 Sat by Pulse Oximetry (%) Assessment: 06/01/17 10:01 DETOX COMPLETED ,NO WITHDRAWAL SYMPTOM Plan: DISCHARGE TODAY,FOLLOW UP WITH AFTER CARE PROGRAM ARRANGEMENT
--- NOTE | 2017-06-01 10:22 | DS ---
[facility] Detox Discharge Summary Admission Date: 05/28/17 Discharge Date: 06/01/17 - History Present History: Alcohol Dependence, Cannabis Dependence, Cocaine Dependence Additional Comments: FOLLOW UP WITH AFTER CARE PROGRAM ARRANGEMENT Pertinent Past History: ASTHMA CAD HYPERTENSION HYPERCHOLESTEROLEMIA POSITIVE PPD - Physical Exam Results Vital Signs: Vital Signs Temperature 97.7 F 06/01/17 06:00 Pulse Rate 69 06/01/17 06:00 Respiratory Rate 18 06/01/17 06:00 Blood Pressure 117/68 06/01/17 06:00 O2 Sat by Pulse Oximetry (%) Pertinent Admission Physical Exam Findings: WITHDRAWAL SIGNS AND SYMPTOM Vital Signs Temperature 98.1 F 06/01/17 10:17 Pulse Rate 84 06/01/17 10:17 Respiratory Rate 18 06/01/17 10:17 Blood Pressure 105/58 06/01/17 10:17 O2 Sat by Pulse Oximetry (%) Laboratory Last Values WBC 4.9 K/mm3 (4.0-10.0) 05/29/17 07:00 RBC 4.61 M/mm3 (4.00-5.60) 05/29/17 07:00 Hgb 13.7 GM/dL (11.7-16.9) 05/29/17 07:00 Hct 42.0 % (35.4-49) 05/29/17 07:00 MCV 91.0 fl (80-96) 05/29/17 07:00 MCH 29.6 pg (25.7-33.7) 05/29/17 07:00 MCHC 32.6 g/dl (32.0-35.9) 05/29/17 07:00 RDW 14.4 % (11.9-15.9) 05/29/17 07:00 Plt Count 173 K/MM3 (134-434) 05/29/17 07:00 MPV 8.0 fl (7.5-11.1) 05/29/17 07:00 Sodium 140 mmol/L (136-145) 05/29/17 07:00 Potassium 3.9 mmol/L (3.5-5.1) 05/29/17 07:00 Chloride 107 mmol/L (98-107) 05/29/17 07:00 Carbon Dioxide 28 mmol/L (21-32) 05/29/17 07:00 Anion Gap 5 (8-16) L 05/29/17 07:00 BUN 11 mg/dL (7-18) 05/29/17 07:00 Creatinine 1.1 mg/dL (0.7-1.3) 05/29/17 07:00 Creat Clearance w eGFR > 60 (>60) 05/29/17 07:00 Random Glucose 112 mg/dL (74-106) H D 05/29/17 07:00 Calcium 8.3 mg/dL (8.5-10.1) L 05/29/17 07:00 Total Bilirubin 0.3 mg/dL (0.2-1.0) D 05/29/17 07:00 AST 12 U/L (15-37) L D 05/29/17 07:00 ALT 17 U/L (12-78) 05/29/17 07:00 Alkaline Phosphatase 97 U/L (45-117) 05/29/17 07:00 Total Protein 6.6 g/dl (6.4-8.2) 05/29/17 07:00 Albumin 3.1 g/dl (3.4-5.0) L 05/29/17 07:00 Urine Color [place] 05/28/17 22:19 Urine Appearance Turbid 05/28/17 22: Urine pH 5.0 (5.0-8.0) 05/28/17 22:19 Ur Specific [place] 1.028 (1.001-1.035) 05/28/17 22:19 Urine Protein 2+ (NEGATIVE) H 05/28/17 22:19 Urine Glucose (UA) Negative (NEGATIVE) 05/28/17 22: Urine Ketones Negative (NEGATIVE) 05/28/17 22: Urine Blood Negative (NEGATIVE) 05/28/17 22: Urine Nitrite Negative (NEGATIVE) 05/28/17 22:19 Urine Bilirubin Negative (<2.0 mg/dL) 05/28/17 22: Urine Urobilinogen 2.0 mg/dL (0.2-1.0) 05/28/17 22:19 Ur Leukocyte Esterase Negative (NEGATIVE) 05/28/17 22:19 Urine WBC (Auto) None /hpf (3-5) 05/28/17 22:19 Urine RBC (Auto) None /hpf (0-3) 05/28/17 22:19 RPR Titer Nonreactive (NONREACTIVE) 05/29/17 07:00 - Treatment Hospital Course: Detox Protocol Followed, Detoxed Safely, Responded well, Discharged Condition Good, Rehab Referral Accepted Patient has Accepted a Rehab Referral to: [facility] - Medication Discharge Medications: Ambulatory Orders Aspirin [ASA -] 81 mg PO DAILY 06/11/14 Clopidogrel Bisulfate [Plavix -] 75 mg PO DAILY 06/11/14 Atorvastatin Ca [Lipitor] 20 mg PO HS 07/23/14 Albuterol Sulfate Inhaler - [Ventolin HFA Inhaler -] 1 puff IH Q4H PRN #1 inhaler 11/29/16 - Diagnosis (1) Alcohol dependence with uncomplicated withdrawal Current Visit: Yes Status: Chronic (2) Asthma Current Visit: Yes Status: Chronic Qualifiers: Asthma severity: mild Asthma persistence: intermittent Asthma complication type: uncomplicated Qualified Code(s): J45.20 - Mild intermittent asthma, uncomplicated (3) CAD (coronary artery disease) Current Visit: Yes Status: Chronic Qualifiers: Coronary Disease-Associated Artery/Lesion type: unspecified vessel or lesion type [place] vs. transplanted heart: [place] heart Associated angina: without angina Qualified Code(s): I25.10 - Atherosclerotic heart disease of [place] coronary artery without angina pectoris (4) Cannabis dependence, uncomplicated Current Visit: Yes Status: Chronic (5) Cocaine dependence, uncomplicated Current Visit: Yes Status: Chronic (6) Hyperlipidemia Current Visit: Yes Status: Chronic Qualifiers: Hyperlipidemia type: pure hypercholesterolemia Qualified Code(s): E78.00 - Pure hypercholesterolemia, unspecified (7) Hypertension Current Visit: Yes Status: Chronic Qualifiers: Hypertension type: essential hypertension Qualified Code(s): I10 - Essential (primary) hypertension (8) PPD positive, treated Current Visit: Yes Status: Chronic - AMA Did Patient Leave Against Medical Advice: No
[2017-06-01] MEDS: ASPIRIN 81 MG CHEWABLE TABLETS PO SCH (10:49)
[2017-06-01] MEDS: CLOPIDOGREL BISULFATE 75 MG TABLET (FP) PO SCH (10:49)
[2017-06-01] MEDS: PRENATAL VITAMINS W/ FOLIC ACID TABLET (FP) PO SCH (10:49)
[2017-06-01 14:58] VITALS: BP 94/61; PULSE 83; TEMP 97.7
== END 2017-06-01 14:40 | disposition home or self-care (01) | DRG 774 ==
LOC: YASAS 10:21 → Y6N 13:18
PROVIDERS: ADMIT Internal Medicine; ATTEND Internal Medicine
PROC: HZ2ZZZZ Detoxification Services for Substance Abuse Treatment (ICD-10-PCS; principal; 2017-05-28)
DX: F10.230 Alcohol dependence with withdrawal, uncomplicated (principal); F14.20 Cocaine dependence, uncomplicated; F12.20 Cannabis dependence, uncomplicated; J45.20 Mild intermittent asthma, uncomplicated; I25.10 Atherosclerotic heart disease of native coronary artery without angina pectoris; I10 Essential (primary) hypertension; E78.00 Pure hypercholesterolemia, unspecified; J45.909 Unspecified asthma, uncomplicated; R76.11 Nonspecific reaction to tuberculin skin test without active tuberculosis
CPT/HCPCS: 36415; 71046-TC-FY; 80053; 81003; 81015; 85027; 86593; 93005; 93010

== ENCOUNTER 2019-12-05 08:18 | Inpatient (IN) | payer OTHER ==
--- OUTSIDE RECORDS SUMMARY | 2019-12-05 08:22 | XMS ---
:1965 Author Organization [facility] Support Name Relationship Address Phone UE Unavailable Unavailable Unavailable MARTHA HALL COUCHRIS [address] [place] [address] Re-disclosure Warning The records that you are about to access may contain information from federally- assisted alcohol or drug abuse programs. If such information is present, then the following federally mandated warning applies: This information has been disclosed to you from records protected by federal confidentiality rules (42 CFR part 2). The federal rules prohibit you from making any further disclosure of this information unless further disclosure is expressly permitted by the written consent of the person to whom it pertains or as otherwise permitted by 42 CFR part 2. A general authorization for the release of medical or other information is NOT sufficient for this purpose. The Federal rules restrict any use of the information to criminally investigate or prosecute any alcohol or drug abuse patient.The records that you are about to access may contain highly sensitive health information, the redisclosure of which is protected by Article 27-F of the [facility] Public Health law. If you continue you may haveaccess to information: Regarding HIV / AIDS; Provided by facilities licensed or operated by the [facility] Office of Mental Health; or Provided by the [facility] Office for People With Developmental Disabilities. If such information is present, then the following [facility] mandated warning applies: This information has been disclosed to you from confidential records which are protected by state law. State law prohibits you from making any further disclosure of this information without the specific written consent of the person to whom it pertains, or as otherwise permitted by law. Any unauthorized further disclosure in violation of state law may result in a fine or shelter sentence or both. A general authorization for the release of medical or other information is NOT sufficient authorization for further disclosure. Insurance Providers Payer name Policy type Policy ID Covered Covered constitution party's Policy P donny / Coverage constitution party ID relationship to [place] Inf ormation type blevins [place] [id number] 800 [facility] NON CAP Medicaid [id number] S [id number] Regular Clinic Visit Results ID Date Data Source [id number] 07/11/2019 01:20:00 AM EDT [place] Name Value Range Interpretation Code Description Data Beverly rce(s) Supporting Document(s ) SARS-CoV-2 [place] RNA Resp Ql PARTHA+probe This lab was ordered by Ck and shelby forrested by [facility]. Procedure
--- NOTE | 2019-12-05 09:22 | BHS.RME ---
2019 N Coronavirus Screen - COVID-19 Screening Questions Dx of COVID-19 or had a positive test in the last 4 weeks?: No Contact with known/suspected COVID patient in last 14 days?: No Any of these symptoms or contact with someone who has?: None Traveled domestically/internationally in the last 14 days?: No Screen score: 0 Screen result: Further Evaluation Substance Use & Tx History - Substance Use History Alcohol Substance amount: 1 pint vodka Frequency of use: Daily Substance route: Oral Date of Last Use: 12/05/19 ( started age 15) Physical/Psych/Mental Status - Behavior General Behavior: Increased activity (restlessness, agitation) Eye Contact: Normal - Cooperativeness Cooperativeness: Reluctant, Hostile - Thinking Thought Processes: Tight, Logical, Goal Directed - Physical Health Problems Is patient presently having any pain?: No Does patient presently have any injuries (include location): No Does patient currently have a fever: No Is patient : No CIWA Nausea/Vomitin-No Nausea/No Vomiting Muscle Tremors: 4-Moderate,w/Arms Extend Anxiety: 3 Agitation: 4-Moderately Restless Paroxysmal Sweats: 4-Forehead w/Sweat Beads Orientation: 1-Uncertain about Date Tacttile Disturbances: 1-Very Mild Itch/Numbness Auditory Disturbances: 0-None Visual Disturbances: 0-None Headache: 2-Mild CIWA-Ar Total Score: 19
[2019-12-05 10:00] VITALS: BMI 25.2
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
[2019-12-05] MEDS ORDERED: ALBUTEROL SO4 HFA INHALER IH PRN (10:12)
[2019-12-05] MEDS ORDERED: ONDANSETRON *ODT* 4 MG TABLET SL PRN (10:13)
[2019-12-05] MEDS ORDERED: ACETAMINOPHEN 325 MG TABLET (FP) PO PRN ×2 (10:13)
[2019-12-05] MEDS ORDERED: MAGNESIUM HYDROX 2400MG/30ML ORAL SUSPENSION 30 ML CUP PO PRN (10:13)
[2019-12-05] MEDS ORDERED: MAGNESIUM CITRATE 300 ML BOTTLE PO PRN (10:13)
[2019-12-05] MEDS ORDERED: BISMUTH SUBSALICYLATE 262 MG/15 ML BTL PO PRN (10:13)
[2019-12-05] MEDS ORDERED: MAG HYDROX/AL HYDROX/SIMETH 30 ML UNIT-DOSE CUP PO PRN (10:13)
[2019-12-05] MEDS ORDERED: chlordiazePOXIDE HCL 25 MG CAPSULE PO PRN (10:13)
[2019-12-05] MEDS ORDERED: MENTHOL/PHENOL 1 EACH UD MM PRN (10:13)
[2019-12-05] MEDS ORDERED: METHOCARBAMOL 500 MG TABLET PO PRN (10:13)
--- OUTSIDE RECORDS SUMMARY | 2019-12-05 10:34 | XMS ---
:1965 Author [facility] Support Name Relationship Address Phone UE Unavailable Unavailable Unavailable MARTHA HALL COUCHRIS [address] [place] [address] Re-disclosure Warning The records that you are [...] protected by Article 27-F of the [facility] Public Health law. If you continue you may haveaccess to information: Regarding HIV / AIDS; Provided by facilities licensed or operated by the [facility] Office of Mental Health; or Provided by the [facility] Office for People With Developmental Disabilities. If such information is present, then the following [facility] mandated warning applies: This information has been [...] law may result in a fine or assisted sentence or both. A general authorization for the release of medical or other information is NOT sufficient authorization for further disclosure. Insurance Providers Payer name Policy type Policy ID Covered Covered constitution party's Policy P donny / Coverage constitution party ID relationship to [place] Inf ormation type blevins [place] [id number] [facility] NON CAP Medicaid [id number] S [id number] Regular Clinic Visit Results ID Date Data Source [id number] 07/11/2019 01:20:00 AM EDT [place] Name Value Range Interpretation Code Description Data Beverly rce(s) Supporting Document(s ) SARS-CoV-2 [place] RNA Resp Ql PARTHA+probe This lab was ordered by Ck and shelby forrested by [facility]. Procedure
[2019-12-05] MEDS ORDERED: chlordiazePOXIDE HCL 25 MG CAPSULE PO SCH (11:00)
--- NOTE | 2019-12-05 11:27 | PN ---
S Progress Note Note: patient would like regimen to started at 25 mgs po q 6hrs instead of 50 mgs
[2019-12-05 12:46] LABS: HEMATOCRIT 37.5 % (35.4-49); HEMOGLOBIN 12.2 GM/dL (11.7-16.9); MCH 31.1 pg (25.7-33.7); MCHC 32.5 g/dl (32.0-35.9); MEAN CELL VOLUME 95.8 fl (80-96); MEAN PLT VOLUME 7.8 fl (7.5-11.1); PLATELET COUNT 264 K/MM3 (134-434); RBC 3.92 M/mm3 (4.00-5.60); RDW 19.6 % (11.9-15.9)
[2019-12-05 13:19] LABS: ALBUMIN 3.7 g/dl (3.4-5.0); BILIRUBIN,TOTAL 0.2 mg/dL (0.2-1); BLOOD UREA NITROGEN 9.3 mg/dL (7-18); CALCIUM 8.5 mg/dL (8.5-10.1); CREATININE 1.3 mg/dL (0.55-1.3); TOT PROT 7.6 g/dl (6.4-8.2)
[2019-12-05] MEDS: hydrOXYzine PAMOATE 25 MG CAPSULE (FP) PO SCH ×3 (14:40→22:39)
[2019-12-05] MEDS: chlordiazePOXIDE HCL 25 MG CAPSULE PO SCH ×2 (18:03→22:39)
[2019-12-05] MEDS: IBUPROFEN 400 MG TABLET (FP) PO PRN (22:38)
[2019-12-05] MEDS: THIAMINE HCL 100 MG TABLET (FP) PO SCH (22:39)
[2019-12-05] MEDS: MELATONIN 5 MG TABLETS PO SCH (22:39)
[2019-12-06] MEDS: hydrOXYzine PAMOATE 25 MG CAPSULE (FP) PO SCH ×5 (07:05→22:20)
[2019-12-06] MEDS: chlordiazePOXIDE HCL 25 MG CAPSULE PO SCH ×4 (07:05→22:20)
--- NOTE | 2019-12-06 10:36 | PN ---
S CIWA - CIWA Score Nausea/Vomitin Muscle Tremors: 2 Anxiety: 2 Agitation: 2 Paroxysmal Sweats: No Perspiration Orientation: 0-Oriented Tacttile Disturbances: 1-Very Mild Itch/Numbness Auditory Disturbances: 0-None Visual Disturbances: 0-None Headache: 2-Mild CIWA-Ar Total Score: 11 S Progress Note (SOAP) Subjective: alert,irritable,anxious,interrupted sleep,aching pain Objective: 12/06/19 11:23 Vital Signs Temperature 97.5 F L 12/06/19 08:32 Pulse Rate 76 12/06/19 08:32 Respiratory Rate 18 12/06/19 08:32 Blood Pressure 100/56 L 12/06/19 08:32 O2 Sat by Pulse Oximetry (%) 99 12/05/19 20:17 12/06/19 11:23 Laboratory Last Values WBC 5.0 K/mm3 (4.0-10.0) 12/05/19 10:00 RBC 3.92 M/mm3 (4.00-5.60) L 12/05/19 10:00 Hgb 12.2 GM/dL (11.7-16.9) 12/05/19 10:00 Hct 37.5 % (35.4-49) 12/05/19 10:00 MCV 95.8 fl (80-96) 12/05/19 10:00 MCH 31.1 pg (25.7-33.7) 12/05/19 10:00 MCHC 32.5 g/dl (32.0-35.9) 12/05/19 10:00 RDW 19.6 % (11.9-15.9) H 12/05/19 10:00 Plt Count 264 K/MM3 (134-434) D 12/05/19 10:00 MPV 7.8 fl (7.5-11.1) 12/05/19 10:00 Sodium 143 mmol/L (136-145) 12/05/19 10:00 Potassium 4.0 mmol/L (3.5-5.1) 12/05/19 10:00 Chloride 108 mmol/L (98-107) H 12/05/19 10:00 Carbon Dioxide 27 mmol/L (21-32) 12/05/19 10:00 Anion Gap 8 MMOL/L (8-16) 12/05/19 10:00 BUN 9.3 mg/dL (7-18) 12/05/19 10:00 Creatinine 1.3 mg/dL (0.55-1.3) 12/05/19 10:00 Est GFR (CKD-EPI)AfAm 70.69 12/05/19 10:00 Est GFR (CKD-EPI)NonAf 60.99 12/05/19 10:00 Random Glucose 101 mg/dL (74-106) 12/05/19 10:00 Calcium 8.5 mg/dL (8.5-10.1) 12/05/19 10:00 Total Bilirubin 0.2 mg/dL (0.2-1) 12/05/19 10:00 AST 26 U/L (15-37) 12/05/19 10:00 ALT 18 U/L (13-61) 12/05/19 10:00 Alkaline Phosphatase 117 U/L (45-117) 12/05/19 10:00 Total Protein 7.6 g/dl (6.4-8.2) 12/05/19 10:00 Albumin 3.7 g/dl (3.4-5.0) 12/05/19 10:00 Syphilis Serology Reactive (NONREACTIVE) A* 12/05/19 10:00 RPR Titer Reactive 1:1 (NONREACTIVE) H D 12/05/19 10:00 12/06/19 11:46 patient was treated for syphilis before Assessment: 12/06/19 11:48 withdrawal symptom Plan: continue detox librium regimen
[2019-12-06] MEDS: PRENATAL VITAMINS W/ FOLIC ACID TABLET (FP) PO SCH (11:04)
[2019-12-06] MEDS: MELATONIN 5 MG TABLETS PO SCH (22:19)
[2019-12-06] MEDS: THIAMINE HCL 100 MG TABLET (FP) PO SCH (22:21)
[2019-12-07] MEDS: chlordiazePOXIDE HCL 25 MG CAPSULE PO SCH ×4 (07:50→22:13)
[2019-12-07] MEDS: hydrOXYzine PAMOATE 25 MG CAPSULE (FP) PO SCH ×5 (07:51→22:13)
[2019-12-07] MEDS: PRENATAL VITAMINS W/ FOLIC ACID TABLET (FP) PO SCH (10:15)
--- NOTE | 2019-12-07 10:45 | PN ---
S CIWA - CIWA Score Nausea/Vomitin-No Nausea/No Vomiting Muscle Tremors: 2 Anxiety: 2 Agitation: 1-Slight > Activity Paroxysmal Sweats: 2 Orientation: 0-Oriented Tacttile Disturbances: 0-None Auditory Disturbances: 0-None Visual Disturbances: 0-None Headache: 2-Mild CIWA-Ar Total Score: 9 BHS Progress Note (SOAP) Subjective: c/o anxiety, sweats, shakes, and headache. Objective: 12/07/19 10:44 Vital Signs 12/07/19 12/07/19 06:20 08:34 Temperature 97.5 F L 97.7 F Pulse Rate 79 85 Respiratory 16 18 Rate Blood Pressure 119/69 107/71 O2 Sat by Pulse 98 Oximetry (%) Laboratory Last Values WBC 5.0 K/mm3 (4.0-10.0) 12/05/19 10:00 RBC 3.92 M/mm3 (4.00-5.60) L 12/05/19 10:00 Hgb 12.2 GM/dL (11.7-16.9) 12/05/19 10:00 Hct 37.5 % (35.4-49) 12/05/19 10:00 MCV 95.8 fl (80-96) 12/05/19 10:00 MCH 31.1 pg (25.7-33.7) 12/05/19 10:00 MCHC 32.5 g/dl (32.0-35.9) 12/05/19 10:00 RDW 19.6 % (11.9-15.9) H 12/05/19 10:00 Plt Count 264 K/MM3 (134-434) D 12/05/19 10:00 MPV 7.8 fl (7.5-11.1) 12/05/19 10:00 Sodium 143 mmol/L (136-145) 12/05/19 10:00 Potassium 4.0 mmol/L (3.5-5.1) 12/05/19 10:00 Chloride 108 mmol/L (98-107) H 12/05/19 10:00 Carbon Dioxide 27 mmol/L (21-32) 12/05/19 10:00 Anion Gap 8 MMOL/L (8-16) 12/05/19 10:00 BUN 9.3 mg/dL (7-18) 12/05/19 10:00 Creatinine 1.3 mg/dL (0.55-1.3) 12/05/19 10:00 Est GFR (CKD-EPI)AfAm 70.69 12/05/19 10:00 Est GFR (CKD-EPI)NonAf 60.99 12/05/19 10:00 Random Glucose 101 mg/dL (74-106) 12/05/19 10:00 Calcium 8.5 mg/dL (8.5-10.1) 12/05/19 10:00 Total Bilirubin 0.2 mg/dL (0.2-1) 12/05/19 10:00 AST 26 U/L (15-37) 12/05/19 10:00 ALT 18 U/L (13-61) 12/05/19 10:00 Alkaline Phosphatase 117 U/L (45-117) 12/05/19 10:00 Total Protein 7.6 g/dl (6.4-8.2) 12/05/19 10:00 Albumin 3.7 g/dl (3.4-5.0) 12/05/19 10:00 Syphilis Serology Reactive (NONREACTIVE) A* 12/05/19 10:00 RPR Titer Reactive 1:1 (NONREACTIVE) H D 12/05/19 10:00 COVID-19 (PARTHA) Not detected (Not Detected) 12/05/19 10:00 HIV Ag/Ab Combo Qual Negative (NEGATIVE) 12/06/19 08:35 Labs noted. Assessment: 12/07/19 10:44 AOX3, in no acute respiratory distress. Full ROM, ambulating in the unit. Withdrawal symptoms. Plan: continue detox.
[2019-12-07] MEDS: MELATONIN 5 MG TABLETS PO SCH (22:13)
[2019-12-07] MEDS: THIAMINE HCL 100 MG TABLET (FP) PO SCH (22:27)
[2019-12-07] MEDS: IBUPROFEN 400 MG TABLET (FP) PO PRN (23:14)
[2019-12-08] MEDS ORDERED: chlordiazePOXIDE HCL 10 MG CAPSULE PO PRN
[2019-12-08] MEDS: chlordiazePOXIDE HCL 10 MG CAPSULE PO SCH ×2 (08:04→10:22)
[2019-12-08] MEDS: hydrOXYzine PAMOATE 25 MG CAPSULE (FP) PO SCH ×2 (08:05→10:22)
[2019-12-08 09:21] VITALS: BP 93/63; PULSE 80; TEMP 96.8
--- NOTE | 2019-12-08 09:28 | PN ---
S CIWA - CIWA Score Nausea/Vomitin-Mild Nausea/No Vomiting Muscle Tremors: 2 Anxiety: 3 Agitation: 1-Slight > Activity Paroxysmal Sweats: No Perspiration Orientation: 0-Oriented Tacttile Disturbances: 0-None Auditory Disturbances: 0-None Visual Disturbances: 0-None Headache: 2-Mild CIWA-Ar Total Score: 9 BHS Progress Note (SOAP) Subjective: 54 years old male was admitted on 12/05/19 for alcohol withdrawal sx management treting with librium detox regiment reports chronic left knee pain left knee skin intact no swell no redness none tenderness offer tylenal "does not do shit" mr fung can not remember the name of the medication his orthopedic prescribed for him encourage mr fung returning to [facility] for proper diagnosis and treatment Objective: 12/08/19 09:31 Vital Signs - 24 hr 12/07/19 12/07/19 12/07/19 12:56 17:06 20:35 Temperature 97.8 F 97.8 F 97.7 F Pulse Rate 78 88 74 Respiratory 18 16 18 Rate Blood Pressure 109/64 114/72 105/66 O2 Sat by Pulse 100 97 Oximetry (%) 12/08/19 12/08/19 06:11 08:36 Temperature 97.5 F L 96.8 F L Pulse Rate 78 80 Respiratory 18 18 Rate Blood Pressure 134/73 93/63 O2 Sat by Pulse 100 Oximetry (%) Laboratory Tests 12/05/19 12/05/19 12/05/19 10:00 10:00 10:00 WBC 5.0 RBC 3.92 L Hgb 12.2 Hct 37.5 MCV 95.8 MCH 31.1 MCHC 32.5 RDW 19.6 H Plt Count 264 D MPV 7.8 Sodium 143 Potassium 4.0 Chloride 108 H Carbon Dioxide 27 Anion Gap 8 BUN 9.3 Creatinine 1.3 Est GFR (CKD-EPI)AfAm 70.69 Est GFR (CKD-EPI)NonAf 60.99 Random Glucose 101 Calcium 8.5 Total Bilirubin 0.2 AST 26 ALT 18 Alkaline Phosphatase 117 Total Protein 7.6 Albumin 3.7 Syphilis Serology Reactive A* RPR Titer COVID-19 ([facility]) HIV Ag/Ab Combo Qual 12/05/19 12/05/19 12/06/19 10:00 10:00 08:35 WBC RBC Hgb Hct MCV MCH MCHC RDW Plt Count MPV Sodium Potassium Chloride Carbon Dioxide Anion Gap BUN Creatinine Est GFR (CKD-EPI)AfAm Est GFR (CKD-EPI)NonAf Random Glucose Calcium Total Bilirubin AST ALT Alkaline Phosphatase Total Protein Albumin Syphilis Serology RPR Titer Reactive 1:1 H D COVID-19 ([facility]) Not detected HIV Ag/Ab Combo Qual Negative syphilis contacted treated Assessment: 12/08/19 09:33 alcohol withdrawal Plan: librium regiment
[2019-12-08] MEDS: PRENATAL VITAMINS W/ FOLIC ACID TABLET (FP) PO SCH (10:21)
--- NOTE | 2019-12-08 12:31 | DS ---
[facility] Detox Discharge Summary Admission Date: 12/05/19 Discharge Date: 12/08/19 - History Present History: Alcohol Dependence Additional Comments: 54 years old male was admitted on 12/05/19 for alcohol withdrawal as management treated with librium detox regiment mr fung insists to leave the detox unit today due to "have to see my orthopedic doctor" mr fung states that tylenal does not do any good for his left knee mr fung is alert oriented x 3 speech clearly coherently ambulating with steady gaits General Appearance: Yes: Nourished, Appropriately Dressed, not Irritable HEENTM: Yes: EOMI, Hearing grossly Normal, Normocephalic, Normal Voice Respiratory: Yes: Lungs Clear, No Respiratory Distress, No Accessory Muscle Use Neck: Yes: Within Normal Limits, Supple Breast: Yes: Breast Exam Deferred Cardiology: Yes: Regular Rhythm, Regular Rate Abdominal: Yes: Normal Bowel Sounds, Non Tender, Flat, Soft Genitourinary: Yes: Other (deferred) Back: Yes: Normal Inspection Musculoskeletal: Yes: Gait Steady Extremities: Yes: Normal Inspection, Non-Tender, Other (superficial scrape left anterior leg, work related per pt) Neurological: Yes: Alert, Normal Response, Finger to Nose (normal) Integumentary: Yes: Normal Color, Dry, Warm Pertinent Past History: time for discharge 55 minutes treatment team met with mr fung to discuss benefits of librium regiment completion mr fung prefers to visit his orthopedic doctor for his chronic left knee pain mr fung insists to leave today instead of estimated discharge day of 12/10/19 - Physical Exam Results Vital Signs: Vital Signs Temperature 96.8 F L 12/08/19 08:36 Pulse Rate 80 12/08/19 08:36 Respiratory Rate 18 12/08/19 08:36 Blood Pressure 93/63 12/08/19 08:36 O2 Sat by Pulse Oximetry (%) 100 12/08/19 06:11 Pertinent Admission Physical Exam Findings: alcohol withdrawal Laboratory Tests 12/05/19 12/05/19 12/05/19 10:00 10:00 10:00 WBC 5.0 RBC 3.92 L Hgb 12.2 Hct 37.5 MCV 95.8 MCH 31.1 MCHC 32.5 RDW 19.6 H Plt Count 264 D MPV 7.8 Sodium 143 Potassium 4.0 Chloride 108 H Carbon Dioxide 27 Anion Gap 8 BUN 9.3 Creatinine 1.3 Est GFR (CKD-EPI)AfAm 70.69 Est GFR (CKD-EPI)NonAf 60.99 Random Glucose 101 Calcium 8.5 Total Bilirubin 0.2 AST 26 ALT 18 Alkaline Phosphatase 117 Total Protein 7.6 Albumin 3.7 Syphilis Serology Reactive A* RPR Titer COVID-19 ([facility]) HIV Ag/Ab Combo Qual 12/05/19 12/05/19 12/06/19 10:00 10:00 08:35 WBC RBC Hgb Hct MCV MCH MCHC RDW Plt Count MPV Sodium Potassium Chloride Carbon Dioxide Anion Gap BUN Creatinine Est GFR (CKD-EPI)AfAm Est GFR (CKD-EPI)NonAf Random Glucose Calcium Total Bilirubin AST ALT Alkaline Phosphatase Total Protein Albumin Syphilis Serology RPR Titer Reactive 1:1 H D COVID-19 ([facility]) Not detected HIV Ag/Ab Combo Qual Negative syphilis contacted treated mr fung prefers to follow up with [facility] for alcohol abuse treatment mr fung agrees to bring lab and medication list to [facility] for aftercare - Treatment Hospital Course: Detox Protocol Followed, Detoxed Safely, Responded well, Discharged Condition Good, Rehab Referral Accepted Patient has Accepted a Rehab Referral to: [facility] - Medication Discharge Medications: Ambulatory Orders Albuterol Sulfate Inhaler - [Ventolin HFA Inhaler -] 2 puff IH Q4H PRN #1 inhaler 06/01/17 - Diagnosis (1) Substance induced mood disorder Current Visit: Yes Status: Suspected (2) Syphilis contact, treated Current Visit: Yes Status: Chronic (3) Asthma Current Visit: Yes Status: Chronic Qualifiers: Asthma severity: mild Asthma persistence: intermittent Asthma complication type: uncomplicated Qualified Code(s): J45.20 - Mild intermittent asthma, uncomplicated (4) Alcohol dependence with uncomplicated withdrawal Current Visit: Yes Status: Acute (5) PPD positive, treated Current Visit: Yes Status: Resolved (6) Hypertension Current Visit: Yes Status: Chronic Qualifiers: Hypertension type: essential hypertension Qualified Code(s): I10 - Essential (primary) hypertension (7) Hyperlipidemia Current Visit: Yes Status: Chronic Qualifiers: Hyperlipidemia type: pure hypercholesterolemia Qualified Code(s): E78.00 - Pure hypercholesterolemia, unspecified - AMA Did Patient Leave Against Medical Advice: No CIWA Score - CIWA Score Nausea/Vomitin-No Nausea/No Vomiting Muscle Tremors: 1-None Visible, but [place] Anxiety: 2 Agitation: 0-Normal Activity Paroxysmal Sweats: No Perspiration Orientation: 0-Oriented Tacttile Disturbances: 0-None Auditory Disturbances: 0-None Visual Disturbances: 0-None Headache: 1-Very Mild CIWA-Ar Total Score: 4
[2019-12-09] MEDS ORDERED: chlordiazePOXIDE HCL 10 MG CAPSULE PO SCH (05:00)
[2019-12-10] MEDS ORDERED: chlordiazePOXIDE HCL 10 MG CAPSULE PO ONE (05:00)
== END 2019-12-08 13:32 | disposition home or self-care (01) | DRG 775 ==
LOC: YASAS 08:18 → Y3N 10:07
PROVIDERS: ADMIT Allergy & Immunology; ATTEND Allergy & Immunology
PROC: HZ2ZZZZ Detoxification Services for Substance Abuse Treatment (ICD-10-PCS; principal; 2019-12-05)
DX: F10.230 Alcohol dependence with withdrawal, uncomplicated (principal); F12.20 Cannabis dependence, uncomplicated; F17.211 Nicotine dependence, cigarettes, in remission; F19.24 Other psychoactive substance dependence with psychoactive substance-induced mood disorder; E78.00 Pure hypercholesterolemia, unspecified; I25.10 Atherosclerotic heart disease of native coronary artery without angina pectoris; I10 Essential (primary) hypertension; Z95.5 Presence of coronary angioplasty implant and graft; J45.20 Mild intermittent asthma, uncomplicated; M25.562 Pain in left knee; G89.29 Other chronic pain; R76.11 Nonspecific reaction to tuberculin skin test without active tuberculosis; Z86.19 Personal history of other infectious and parasitic diseases
CPT/HCPCS: 36415; 71046-TC-FY; 80053; 85027; 86593; 86780; 87389; C9803; U0003

== ENCOUNTER 2020-02-17 10:07 | Inpatient (IN) | payer OTHER ==
[2020-02-17 10:37] VITALS: BMI 25.8
[2020-02-17] MEDS ORDERED: NICOTINE POLACRILEX 2 MG GUM BUC PRN (11:27)
[2020-02-17] MEDS ORDERED: MAGNESIUM CITRATE 300 ML BOTTLE PO PRN (11:27)
[2020-02-17] MEDS ORDERED: MAGNESIUM HYDROX 2400MG/30ML ORAL SUSPENSION 30 ML CUP PO PRN (11:27)
[2020-02-17] MEDS ORDERED: BISMUTH SUBSALICYLATE 524 MG/30 ML PO PRN (11:27)
[2020-02-17] MEDS ORDERED: IBUPROFEN 400 MG TABLET (FP) PO PRN (11:27)
[2020-02-17] MEDS ORDERED: ACETAMINOPHEN 325 MG TABLET (FP) PO PRN ×2 (11:27)
[2020-02-17] MEDS ORDERED: ONDANSETRON *ODT* 4 MG TABLET SL PRN (11:27)
[2020-02-17] MEDS ORDERED: MENTHOL/PHENOL 1 EACH UD MM PRN (11:27)
[2020-02-17] MEDS ORDERED: diazePAM 5 MG TABLET PO PRN (11:27)
[2020-02-17] MEDS ORDERED: MAG HYDROX/AL HYDROX/SIMETH 30 ML UNIT-DOSE CUP PO PRN (11:27)
[2020-02-17] MEDS ORDERED: METHOCARBAMOL 500 MG TABLET PO PRN (11:27)
[2020-02-17] MEDS ORDERED: ALBUTEROL SO4 HFA INHALER IH PRN (11:30)
[2020-02-17] MEDS: PRENATAL VITAMINS W/ FOLIC ACID TABLET (FP) PO SCH (12:24)
[2020-02-17] MEDS: diazePAM 5 MG TABLET PO SCH ×3 (12:24→22:32)
[2020-02-17] MEDS: hydrOXYzine PAMOATE 25 MG CAPSULE (FP) PO SCH ×3 (15:05→22:32)
[2020-02-17] MEDS: MELATONIN 5 MG TABLETS PO SCH (22:32)
[2020-02-17] MEDS: THIAMINE HCL 100 MG TABLET (FP) PO SCH (22:32)
[2020-02-18] MEDS: diazePAM 5 MG TABLET PO SCH ×4 (05:46→22:30)
[2020-02-18] MEDS: hydrOXYzine PAMOATE 25 MG CAPSULE (FP) PO SCH ×2 (05:46→10:50)
[2020-02-18] MEDS: PRENATAL VITAMINS W/ FOLIC ACID TABLET (FP) PO SCH (10:50)
[2020-02-18] MEDS: NICOTINE 14 MG/24 HOURS TOPICAL PATCH TD SCH (10:50)
[2020-02-18 10:56] LABS: HEMATOCRIT 42.4 % (35.4-49); HEMOGLOBIN 13.8 GM/dL (11.7-16.9); MCH 32.1 pg (25.7-33.7); MCHC 32.6 g/dl (32.0-35.9); MEAN CELL VOLUME 98.4 fl (80-96); MEAN PLT VOLUME 8.8 fl (7.5-11.1); PLATELET COUNT 281 K/MM3 (134-434); RBC 4.31 M/mm3 (4.00-5.60); RDW 15.6 % (11.9-15.9); WHITE BLOOD COUNT 10.1 K/mm3 (4.0-10.0)
[2020-02-18 11:01] LABS: BLOOD UREA NITROGEN 11.4 mg/dL (7-18)
[2020-02-18 11:04] LABS: CREATININE 1.4 mg/dL (0.55-1.3)
[2020-02-18 11:05] LABS: BILIRUBIN,TOTAL 1.6 mg/dL (0.2-1); TOT PROT 7.5 g/dl (6.4-8.2)
[2020-02-18] MEDS: hydrOXYzine PAMOATE 50 MG CAPSULE (FP) PO SCH ×4 (14:42→22:29)
[2020-02-18] MEDS ORDERED: DICYCLOMINE HCL 10 MG CAPSULE PO PRN (18:55)
[2020-02-18] MEDS: THIAMINE HCL 100 MG TABLET (FP) PO SCH (22:29)
[2020-02-18] MEDS: MELATONIN 5 MG TABLETS PO SCH (22:30)
[2020-02-19] MEDS: diazePAM 5 MG TABLET PO SCH ×3 (05:27→22:18)
[2020-02-19] MEDS: hydrOXYzine PAMOATE 50 MG CAPSULE (FP) PO SCH ×5 (05:27→22:20)
[2020-02-19] MEDS: PRENATAL VITAMINS W/ FOLIC ACID TABLET (FP) PO SCH (10:25)
[2020-02-19] MEDS: NICOTINE 14 MG/24 HOURS TOPICAL PATCH TD SCH (10:26)
[2020-02-19] MEDS: THIAMINE HCL 100 MG TABLET (FP) PO SCH (22:18)
[2020-02-19] MEDS: MELATONIN 5 MG TABLETS PO SCH (22:20)
[2020-02-20] MEDS: diazePAM 5 MG TABLET PO SCH ×2 (06:18→17:41)
[2020-02-20] MEDS: hydrOXYzine PAMOATE 50 MG CAPSULE (FP) PO SCH ×5 (06:18→23:36)
[2020-02-20] MEDS: PRENATAL VITAMINS W/ FOLIC ACID TABLET (FP) PO SCH (10:20)
[2020-02-20] MEDS: NICOTINE 14 MG/24 HOURS TOPICAL PATCH TD SCH (10:20)
[2020-02-20] MEDS: MELATONIN 5 MG TABLETS PO SCH (23:36)
[2020-02-20] MEDS: THIAMINE HCL 100 MG TABLET (FP) PO SCH (23:37)
[2020-02-21] MEDS ORDERED: diazePAM 5 MG TABLET PO ONE (06:00)
[2020-02-21] MEDS: hydrOXYzine PAMOATE 50 MG CAPSULE (FP) PO SCH ×2 (07:22→09:21)
[2020-02-21 08:52] VITALS: BP 112/67; PULSE 86; TEMP 98.6
[2020-02-21] MEDS: PRENATAL VITAMINS W/ FOLIC ACID TABLET (FP) PO SCH (09:21)
[2020-02-21] MEDS: NICOTINE 14 MG/24 HOURS TOPICAL PATCH TD SCH (09:21)
== END 2020-02-21 14:21 | disposition other institution (70) | DRG 774 ==
LOC: YASAS 10:07 → Y3N 11:19
PROVIDERS: ADMIT Allergy & Immunology; ATTEND Allergy & Immunology
PROC: HZ2ZZZZ Detoxification Services for Substance Abuse Treatment (ICD-10-PCS; principal; 2020-02-17)
DX: F10.230 Alcohol dependence with withdrawal, uncomplicated (principal); F14.20 Cocaine dependence, uncomplicated; F12.20 Cannabis dependence, uncomplicated; F17.211 Nicotine dependence, cigarettes, in remission; F19.24 Other psychoactive substance dependence with psychoactive substance-induced mood disorder; I25.10 Atherosclerotic heart disease of native coronary artery without angina pectoris; I10 Essential (primary) hypertension; Z95.5 Presence of coronary angioplasty implant and graft; E78.00 Pure hypercholesterolemia, unspecified; J45.20 Mild intermittent asthma, uncomplicated; Z86.19 Personal history of other infectious and parasitic diseases
CPT/HCPCS: 36415; 80053; 85027; 86593; 86780; C9803; U0003

== ENCOUNTER 2020-02-21 14:26 | Inpatient (IN) | payer OTHER ==
[2020-02-21] MEDS ORDERED: guaiFENesin 200 MG/10 ML 10 ML UNIT-DOSE CUPS PO PRN (15:10)
[2020-02-21] MEDS ORDERED: MENTHOL/PHENOL 1 EACH UD MM PRN (15:10)
[2020-02-21] MEDS ORDERED: hydrOXYzine PAMOATE 25 MG CAPSULE (FP) PO PRN (15:10)
[2020-02-21] MEDS ORDERED: LOPERAMIDE HCL 2 MG CAPSULE PO PRN (15:10)
[2020-02-21] MEDS ORDERED: P-EPHED 60MG/TRIPROLIDI 2.5MG TABLET PO PRN (15:10)
[2020-02-21] MEDS ORDERED: MAGNESIUM HYDROX 2400MG/30ML ORAL SUSPENSION 30 ML CUP PO PRN (15:10)
[2020-02-21] MEDS ORDERED: MAG HYDROX/AL HYDROX/SIMETH 30 ML UNIT-DOSE CUP PO PRN (15:10)
[2020-02-21] MEDS ORDERED: NICOTINE POLACRILEX 2 MG GUM BUC PRN (15:10)
[2020-02-21] MEDS ORDERED: MAGNESIUM CITRATE 300 ML BOTTLE PO PRN (15:10)
[2020-02-21] MEDS ORDERED: ACETAMINOPHEN 325 MG TABLET (FP) PO PRN (15:10)
[2020-02-21] MEDS ORDERED: ALBUTEROL SO4 HFA INHALER IH PRN (15:11)
[2020-02-21] MEDS: MELATONIN 5 MG TABLETS PO SCH (21:40)
[2020-02-21] MEDS: THIAMINE HCL 100 MG TABLET (FP) PO SCH (21:40)
[2020-02-21] MEDS: IBUPROFEN 400 MG TABLET (FP) PO PRN (21:40)
[2020-02-21] MEDS ORDERED: MASKS NR ONE ×2 (23:09→23:11)
[2020-02-22] MEDS ORDERED: MASKS NR ONE (06:36)
[2020-02-22] MEDS ORDERED: NICOTINE 14 MG/24 HOURS TOPICAL PATCH TD SCH (10:00)
[2020-02-22] MEDS: PRENATAL VITAMINS W/ FOLIC ACID TABLET (FP) PO SCH (10:17)
[2020-02-22] MEDS: THIAMINE HCL 100 MG TABLET (FP) PO SCH (22:24)
[2020-02-22] MEDS: MELATONIN 5 MG TABLETS PO SCH (22:24)
[2020-02-23] MEDS: PRENATAL VITAMINS W/ FOLIC ACID TABLET (FP) PO SCH (10:10)
[2020-02-23] MEDS: MELATONIN 5 MG TABLETS PO SCH (21:45)
[2020-02-23] MEDS: THIAMINE HCL 100 MG TABLET (FP) PO SCH (21:45)
[2020-02-24] MEDS: PRENATAL VITAMINS W/ FOLIC ACID TABLET (FP) PO SCH (10:00)
[2020-02-24] MEDS: THIAMINE HCL 100 MG TABLET (FP) PO SCH (21:40)
[2020-02-24] MEDS: MELATONIN 5 MG TABLETS PO SCH (21:40)
[2020-02-25] MEDS ORDERED: MASKS NR ONE (06:17)
[2020-02-25] MEDS: PRENATAL VITAMINS W/ FOLIC ACID TABLET (FP) PO SCH (10:14)
[2020-02-25] MEDS: MELATONIN 5 MG TABLETS PO SCH (21:28)
[2020-02-25] MEDS: THIAMINE HCL 100 MG TABLET (FP) PO SCH (21:28)
[2020-02-26] MEDS: PRENATAL VITAMINS W/ FOLIC ACID TABLET (FP) PO SCH (10:11)
[2020-02-26] MEDS ORDERED: PT OWN MED DRAWER 7, Y5N ONE (15:22)
[2020-02-26] MEDS: IBUPROFEN 400 MG TABLET (FP) PO PRN (21:27)
[2020-02-26] MEDS: THIAMINE HCL 100 MG TABLET (FP) PO SCH (21:28)
[2020-02-26] MEDS: MELATONIN 5 MG TABLETS PO SCH (21:28)
[2020-02-27] MEDS: PRENATAL VITAMINS W/ FOLIC ACID TABLET (FP) PO SCH ×2 (09:42→09:45)
[2020-02-27] MEDS: MELATONIN 5 MG TABLETS PO SCH (22:52)
[2020-02-27] MEDS: THIAMINE HCL 100 MG TABLET (FP) PO SCH (22:53)
[2020-02-28] MEDS: PRENATAL VITAMINS W/ FOLIC ACID TABLET (FP) PO SCH (10:05)
[2020-02-28] MEDS: THIAMINE HCL 100 MG TABLET (FP) PO SCH (21:35)
[2020-02-28] MEDS: MELATONIN 5 MG TABLETS PO SCH (21:35)
[2020-02-29] MEDS: PRENATAL VITAMINS W/ FOLIC ACID TABLET (FP) PO SCH (10:10)
[2020-02-29] MEDS: THIAMINE HCL 100 MG TABLET (FP) PO SCH (21:34)
[2020-02-29] MEDS: MELATONIN 5 MG TABLETS PO SCH (21:34)
[2020-03-01] MEDS: PRENATAL VITAMINS W/ FOLIC ACID TABLET (FP) PO SCH (09:47)
[2020-03-01] MEDS: THIAMINE HCL 100 MG TABLET (FP) PO SCH (21:40)
[2020-03-01] MEDS: MELATONIN 5 MG TABLETS PO SCH (21:40)
[2020-03-02 07:08] VITALS: BP 118/65; PULSE 74; TEMP 97.7
[2020-03-02] MEDS: PRENATAL VITAMINS W/ FOLIC ACID TABLET (FP) PO SCH (10:29)
== END 2020-03-02 10:45 | disposition home or self-care (01) | DRG 772 ==
LOC: YASAS 14:26 → Y3W 14:27
PROVIDERS: ADMIT Allergy & Immunology; ATTEND Allergy & Immunology
PROC: HZ42ZZZ Group Counseling for Substance Abuse Treatment, Cognitive-Behavioral (ICD-10-PCS; principal; 2020-02-21)
DX: F10.20 Alcohol dependence, uncomplicated (principal); F14.20 Cocaine dependence, uncomplicated; F12.20 Cannabis dependence, uncomplicated; J45.20 Mild intermittent asthma, uncomplicated; I25.10 Atherosclerotic heart disease of native coronary artery without angina pectoris; I10 Essential (primary) hypertension; Z95.5 Presence of coronary angioplasty implant and graft; Z79.82 Long term (current) use of aspirin; Z79.02 Long term (current) use of antithrombotics/antiplatelets; Z87.891 Personal history of nicotine dependence

== ENCOUNTER 2020-03-15 09:52 | Inpatient (IN) | payer OTHER ==
[2020-03-15 10:16] VITALS: BMI 27.0
[2020-03-15] MEDS ORDERED: BISMUTH SUBSALICYLATE 524 MG/30 ML UD PO PRN (11:36)
[2020-03-15] MEDS ORDERED: chlordiazePOXIDE HCL 25 MG CAPSULE PO PRN (11:36)
[2020-03-15] MEDS ORDERED: METHOCARBAMOL 500 MG TABLET PO PRN (11:36)
[2020-03-15] MEDS ORDERED: MAGNESIUM CITRATE 300 ML BOTTLE PO PRN (11:36)
[2020-03-15] MEDS ORDERED: ONDANSETRON *ODT* 4 MG TABLET SL PRN (11:36)
[2020-03-15] MEDS ORDERED: MENTHOL/PHENOL 1 EACH UD MM PRN (11:36)
[2020-03-15] MEDS ORDERED: ACETAMINOPHEN 325 MG TABLET (FP) PO PRN (11:36)
[2020-03-15] MEDS ORDERED: MAGNESIUM HYDROX 2400MG/30ML ORAL SUSPENSION 30 ML CUP PO PRN (11:36)
[2020-03-15] MEDS ORDERED: MAG HYDROX/AL HYDROX/SIMETH 30 ML UNIT-DOSE CUP PO PRN (11:36)
[2020-03-15] MEDS: hydrOXYzine PAMOATE 25 MG CAPSULE (FP) PO SCH ×3 (15:16→22:17)
[2020-03-15] MEDS ORDERED: MASKS NR ONE (17:05)
[2020-03-15] MEDS: chlordiazePOXIDE HCL 25 MG CAPSULE PO SCH ×2 (17:57→22:17)
[2020-03-15] MEDS: THIAMINE HCL 100 MG TABLET (FP) PO SCH (22:14)
[2020-03-15] MEDS: IBUPROFEN 400 MG TABLET (FP) PO PRN (22:16)
[2020-03-15] MEDS: MELATONIN 5 MG TABLETS PO SCH (22:17)
[2020-03-16] MEDS: chlordiazePOXIDE HCL 25 MG CAPSULE PO SCH ×4 (05:28→22:46)
[2020-03-16] MEDS: hydrOXYzine PAMOATE 25 MG CAPSULE (FP) PO SCH ×2 (05:28→11:22)
[2020-03-16] MEDS: PRENATAL VITAMINS W/ FOLIC ACID TABLET (FP) PO SCH (11:22)
[2020-03-16 12:10] LABS: POTASSIUM 4.5 mmol/L (3.5-5.1)
[2020-03-16] MEDS ORDERED: hydrOXYzine PAMOATE 25 MG CAPSULE (FP) PO PRN (12:14)
[2020-03-16 12:17] LABS: HEMATOCRIT 40.4 % (35.4-49); MCH 30.8 pg (25.7-33.7); MCHC 32.3 g/dl (32.0-35.9); MEAN CELL VOLUME 95.3 fl (80-96); MEAN PLT VOLUME 8.3 fl (7.5-11.1); PLATELET COUNT 195 K/MM3 (134-434); RBC 4.24 M/mm3 (4.00-5.60); RDW 15.7 % (11.9-15.9); WHITE BLOOD COUNT 4.8 K/mm3 (4.0-10.0)
[2020-03-16 12:30] LABS: ALBUMIN 3.2 g/dl (3.4-5.0); BLOOD UREA NITROGEN 14.6 mg/dL (7-18); CALCIUM 8.7 mg/dL (8.5-10.1)
[2020-03-16 12:32] LABS: CREATININE 1.1 mg/dL (0.55-1.3)
[2020-03-16 12:34] LABS: TOT PROT 6.1 g/dl (6.4-8.2)
[2020-03-16] MEDS ORDERED: ALBUTEROL SO4 HFA INHALER IH PRN (13:16)
[2020-03-16] MEDS: THIAMINE HCL 100 MG TABLET (FP) PO SCH (22:45)
[2020-03-16] MEDS: MELATONIN 5 MG TABLETS PO SCH (22:46)
[2020-03-16] MEDS: IBUPROFEN 400 MG TABLET (FP) PO PRN (22:47)
[2020-03-17] MEDS: chlordiazePOXIDE HCL 25 MG CAPSULE PO SCH ×2 (07:00→10:06)
[2020-03-17] MEDS: PRENATAL VITAMINS W/ FOLIC ACID TABLET (FP) PO SCH (10:07)
[2020-03-17] MEDS: chlordiazePOXIDE HCL 10 MG CAPSULE PO SCH ×2 (14:30→22:15)
[2020-03-17] MEDS: THIAMINE HCL 100 MG TABLET (FP) PO SCH (22:14)
[2020-03-17] MEDS: MELATONIN 5 MG TABLETS PO SCH (22:53)
[2020-03-18] MEDS ORDERED: chlordiazePOXIDE HCL 10 MG CAPSULE PO PRN
[2020-03-18] MEDS ORDERED: chlordiazePOXIDE HCL 10 MG CAPSULE PO SCH (05:00)
[2020-03-18] MEDS: chlordiazePOXIDE HCL 10 MG CAPSULE PO SCH ×2 (05:35→17:53)
[2020-03-18] MEDS: PRENATAL VITAMINS W/ FOLIC ACID TABLET (FP) PO SCH (10:14)
[2020-03-18] MEDS: THIAMINE HCL 100 MG TABLET (FP) PO SCH (22:22)
[2020-03-18] MEDS: MELATONIN 5 MG TABLETS PO SCH (22:22)
[2020-03-19] MEDS ORDERED: chlordiazePOXIDE HCL 10 MG CAPSULE PO ONE (05:00)
[2020-03-19] MEDS ORDERED: chlordiazePOXIDE HCL 10 MG CAPSULE PO SCH (05:00)
[2020-03-19] MEDS: PRENATAL VITAMINS W/ FOLIC ACID TABLET (FP) PO SCH (10:18)
[2020-03-19] MEDS ORDERED: PANTOPRAZOLE 40 MG TABLET PO ONE (17:43)
[2020-03-19] MEDS: ACETAMINOPHEN 325 MG TABLET (FP) PO PRN ×2 (19:52→23:30)
[2020-03-19] MEDS: MELATONIN 5 MG TABLETS PO SCH (22:54)
[2020-03-19] MEDS: THIAMINE HCL 100 MG TABLET (FP) PO SCH (22:54)
[2020-03-20] MEDS ORDERED: chlordiazePOXIDE HCL 10 MG CAPSULE PO ONE ×2 (05:00→06:00)
[2020-03-20 06:22] VITALS: BP 132/66; PULSE 79; TEMP 97.6
== END 2020-03-20 09:07 | disposition other institution (70) | DRG 775 ==
LOC: YASAS 09:52 → Y6N 14:29
PROVIDERS: ADMIT Allergy & Immunology; ATTEND Allergy & Immunology
PROC: HZ2ZZZZ Detoxification Services for Substance Abuse Treatment (ICD-10-PCS; principal; 2020-03-15)
DX: F10.230 Alcohol dependence with withdrawal, uncomplicated (principal); F16.20 Hallucinogen dependence, uncomplicated; F12.20 Cannabis dependence, uncomplicated; E78.5 Hyperlipidemia, unspecified; I25.10 Atherosclerotic heart disease of native coronary artery without angina pectoris; I10 Essential (primary) hypertension; J45.909 Unspecified asthma, uncomplicated; R10.11 Right upper quadrant pain; R76.8 Other specified abnormal immunological findings in serum; Z87.891 Personal history of nicotine dependence
CPT/HCPCS: 36415; 80053; 85027; 86593; 86780; C9803; Q0162; U0003

== ENCOUNTER 2020-06-23 14:27 | Inpatient (IN) | payer OTHER ==
[2020-06-23 14:59] VITALS: BMI 27.0
[2020-06-23] MEDS ORDERED: ACETAMINOPHEN 325 MG TABLET (FP) PO PRN ×2 (16:45)
[2020-06-23] MEDS ORDERED: BISMUTH SUBSALICYLATE 524 MG/30 ML UD PO PRN (16:45)
[2020-06-23] MEDS ORDERED: MAG HYDROX/AL HYDROX/SIMETH 30 ML UNIT-DOSE CUP PO PRN (16:45)
[2020-06-23] MEDS ORDERED: METHOCARBAMOL 500 MG TABLET PO PRN (16:45)
[2020-06-23] MEDS ORDERED: NICOTINE POLACRILEX 2 MG GUM BUC PRN (16:45)
[2020-06-23] MEDS ORDERED: IBUPROFEN 400 MG TABLET (FP) PO PRN (16:45)
[2020-06-23] MEDS ORDERED: ONDANSETRON *ODT* 4 MG TABLET SL PRN (16:45)
[2020-06-23] MEDS ORDERED: chlordiazePOXIDE HCL 25 MG CAPSULE PO PRN (16:45)
[2020-06-23] MEDS ORDERED: MAGNESIUM HYDROX 2400MG/30ML ORAL SUSPENSION 30 ML CUP PO PRN (16:45)
[2020-06-23] MEDS ORDERED: MAGNESIUM CITRATE 300 ML BOTTLE PO PRN (16:45)
[2020-06-23] MEDS ORDERED: MENTHOL/PHENOL 1 EACH UD MM PRN (16:45)
[2020-06-23] MEDS ORDERED: ALBUTEROL SO4 HFA INHALER IH PRN (16:56)
[2020-06-23] MEDS: chlordiazePOXIDE HCL 25 MG CAPSULE PO SCH ×2 (18:20→22:41)
[2020-06-23] MEDS: hydrOXYzine PAMOATE 25 MG CAPSULE (FP) PO SCH ×2 (18:45→22:44)
[2020-06-23] MEDS: THIAMINE HCL 100 MG TABLET (FP) PO SCH (22:41)
[2020-06-23] MEDS: MELATONIN 5 MG TABLETS PO SCH (22:44)
[2020-06-24] MEDS: hydrOXYzine PAMOATE 25 MG CAPSULE (FP) PO SCH ×5 (05:13→23:12)
[2020-06-24] MEDS: chlordiazePOXIDE HCL 25 MG CAPSULE PO SCH (06:00)
[2020-06-24] MEDS ORDERED: diazePAM 5 MG TABLET PO PRN (08:53)
[2020-06-24] MEDS: PRENATAL VITAMINS W/ FOLIC ACID TABLET (FP) PO SCH (10:36)
[2020-06-24] MEDS: diazePAM 5 MG TABLET PO SCH ×3 (10:36→23:12)
[2020-06-24 11:02] LABS: HEMATOCRIT 38.7 % (35.4-49); MCH 31.6 pg (25.7-33.7); MCHC 33.6 g/dl (32.0-35.9); MEAN CELL VOLUME 94.2 fl (80-96); PLATELET COUNT 211 K/MM3 (134-434); RBC 4.11 M/mm3 (4.00-5.60); RDW 14.8 % (11.9-15.9); WHITE BLOOD COUNT 3.9 K/mm3 (4.0-10.0)
[2020-06-24 11:03] LABS: ALBUMIN 3.1 g/dl (3.4-5.0); CALCIUM 8.2 mg/dL (8.5-10.1)
[2020-06-24 11:04] LABS: BLOOD UREA NITROGEN 14.8 mg/dL (7-18)
[2020-06-24 11:06] LABS: CREATININE 1.1 mg/dL (0.55-1.3)
[2020-06-24 11:08] LABS: BILIRUBIN,TOTAL 0.6 mg/dL (0.2-1)
[2020-06-24] MEDS: MELATONIN 5 MG TABLETS PO SCH (23:11)
[2020-06-24] MEDS: THIAMINE HCL 100 MG TABLET (FP) PO SCH (23:12)
[2020-06-25] MEDS ORDERED: chlordiazePOXIDE HCL 25 MG CAPSULE PO SCH (05:00)
[2020-06-25] MEDS: diazePAM 5 MG TABLET PO SCH ×4 (06:57→22:33)
[2020-06-25] MEDS: hydrOXYzine PAMOATE 25 MG CAPSULE (FP) PO SCH ×5 (06:59→22:35)
[2020-06-25] MEDS: PRENATAL VITAMINS W/ FOLIC ACID TABLET (FP) PO SCH (11:18)
[2020-06-25] MEDS: THIAMINE HCL 100 MG TABLET (FP) PO SCH (22:34)
[2020-06-25] MEDS: MELATONIN 5 MG TABLETS PO SCH (22:34)
[2020-06-26] MEDS ORDERED: chlordiazePOXIDE HCL 10 MG CAPSULE PO PRN
[2020-06-26] MEDS ORDERED: chlordiazePOXIDE HCL 10 MG CAPSULE PO SCH (05:00)
[2020-06-26] MEDS: diazePAM 5 MG TABLET PO SCH ×3 (06:30→22:02)
[2020-06-26] MEDS: hydrOXYzine PAMOATE 25 MG CAPSULE (FP) PO SCH ×5 (06:31→22:02)
[2020-06-26] MEDS: PRENATAL VITAMINS W/ FOLIC ACID TABLET (FP) PO SCH (11:44)
[2020-06-26] MEDS: THIAMINE HCL 100 MG TABLET (FP) PO SCH (22:01)
[2020-06-26] MEDS: MELATONIN 5 MG TABLETS PO SCH (22:02)
[2020-06-27] MEDS ORDERED: chlordiazePOXIDE HCL 10 MG CAPSULE PO SCH (05:00)
[2020-06-27] MEDS: diazePAM 5 MG TABLET PO SCH ×2 (06:17→18:22)
[2020-06-27] MEDS: hydrOXYzine PAMOATE 25 MG CAPSULE (FP) PO SCH ×5 (06:17→23:12)
[2020-06-27] MEDS: PRENATAL VITAMINS W/ FOLIC ACID TABLET (FP) PO SCH (10:10)
[2020-06-27] MEDS: THIAMINE HCL 100 MG TABLET (FP) PO SCH (23:12)
[2020-06-27] MEDS: MELATONIN 5 MG TABLETS PO SCH (23:12)
[2020-06-28] MEDS ORDERED: chlordiazePOXIDE HCL 10 MG CAPSULE PO ONE (05:00)
[2020-06-28] MEDS ORDERED: diazePAM 5 MG TABLET PO ONE (06:00)
[2020-06-28] MEDS: hydrOXYzine PAMOATE 25 MG CAPSULE (FP) PO SCH ×2 (06:20→10:08)
[2020-06-28 09:34] VITALS: BP 122/85; PULSE 75; TEMP 97.1
[2020-06-28] MEDS: PRENATAL VITAMINS W/ FOLIC ACID TABLET (FP) PO SCH (10:08)
== END 2020-06-28 10:17 | disposition other institution (70) | DRG 774 ==
LOC: YASAS 14:27 → Y6N 16:40
PROVIDERS: ADMIT Allergy & Immunology; ATTEND Allergy & Immunology
PROC: HZ2ZZZZ Detoxification Services for Substance Abuse Treatment (ICD-10-PCS; principal; 2020-06-23)
DX: F10.230 Alcohol dependence with withdrawal, uncomplicated (principal); F14.20 Cocaine dependence, uncomplicated; F12.20 Cannabis dependence, uncomplicated; F19.24 Other psychoactive substance dependence with psychoactive substance-induced mood disorder; I25.10 Atherosclerotic heart disease of native coronary artery without angina pectoris; I10 Essential (primary) hypertension; J45.20 Mild intermittent asthma, uncomplicated; H18.413 Arcus senilis, bilateral; R10.11 Right upper quadrant pain; R76.11 Nonspecific reaction to tuberculin skin test without active tuberculosis; Z86.19 Personal history of other infectious and parasitic diseases
CPT/HCPCS: 36415; 80053; 85027; 86593; 86780; C9803; U0003; U0005

== ENCOUNTER 2021-03-15 10:26 | Inpatient (IN) | payer OTHER ==
[2021-03-15 10:47] VITALS: BMI 29.0
[2021-03-15] MEDS ORDERED: ONDANSETRON *ODT* 4 MG TABLET SL PRN (10:56)
[2021-03-15] MEDS ORDERED: MAG HYDROX/AL HYDROX/SIMETH 30 ML UNIT-DOSE CUP PO PRN (10:56)
[2021-03-15] MEDS ORDERED: BISMUTH SUBSALICYLATE 262 MG/15 ML BTL PO PRN (10:56)
[2021-03-15] MEDS ORDERED: ACETAMINOPHEN 325 MG TABLET (FP) PO PRN ×2 (10:56)
[2021-03-15] MEDS ORDERED: IBUPROFEN 400 MG TABLET (FP) PO PRN (10:56)
[2021-03-15] MEDS ORDERED: chlordiazePOXIDE HCL 25 MG CAPSULE PO PRN (10:56)
[2021-03-15] MEDS ORDERED: MAGNESIUM CITRATE 300 ML BOTTLE PO PRN (10:56)
[2021-03-15] MEDS ORDERED: MENTHOL/PHENOL 1 EACH UD MM PRN (10:56)
[2021-03-15] MEDS ORDERED: MAGNESIUM HYDROX 2400MG/30ML ORAL SUSPENSION 30 ML CUP PO PRN (10:56)
[2021-03-15] MEDS ORDERED: METHOCARBAMOL 500 MG TABLET PO PRN (10:56)
[2021-03-15] MEDS: PRENATAL VITAMINS W/ FOLIC ACID TABLET (FP) PO SCH (12:08)
[2021-03-15] MEDS: hydrOXYzine PAMOATE 25 MG CAPSULE (FP) PO SCH ×3 (14:14→22:10)
[2021-03-15 15:48] LABS: HEMATOCRIT 40.5 % (35.4-49); HEMOGLOBIN 13.3 GM/dL (11.7-16.9); MCH 29.6 pg (25.7-33.7); MEAN CELL VOLUME 89.7 fl (80-96); MEAN PLT VOLUME 7.7 fl (7.5-11.1); PLATELET COUNT 211 10^3/uL (134-434); RBC 4.51 M/mm3 (4.00-5.60); RDW 14.1 % (11.9-15.9); WHITE BLOOD COUNT 5.6 K/mm3 (4.0-10.0)
[2021-03-15 15:55] LABS: CALCIUM 8.9 mg/dL (8.5-10.1)
[2021-03-15 15:56] LABS: ALBUMIN 3.9 g/dl (3.4-5.0)
[2021-03-15 15:57] LABS: CREATININE 1.4 mg/dL (0.55-1.3)
[2021-03-15 15:58] LABS: BILIRUBIN,TOTAL 1.1 mg/dL (0.2-1); TOT PROT 7.2 g/dl (6.4-8.2)
[2021-03-15] MEDS: chlordiazePOXIDE HCL 25 MG CAPSULE PO SCH ×2 (17:45→22:10)
[2021-03-15] MEDS: THIAMINE HCL 100 MG TABLET (FP) PO SCH (22:10)
[2021-03-15] MEDS: MELATONIN 5 MG TABLETS PO SCH (22:10)
[2021-03-16] MEDS: hydrOXYzine PAMOATE 25 MG CAPSULE (FP) PO SCH ×5 (06:16→22:28)
[2021-03-16] MEDS: chlordiazePOXIDE HCL 25 MG CAPSULE PO SCH (06:16)
[2021-03-16] MEDS ORDERED: chlordiazePOXIDE HCL 25 MG CAPSULE PO PRN (09:19)
[2021-03-16] MEDS: chlordiazePOXIDE HCL 10 MG CAPSULE PO SCH ×3 (10:17→22:27)
[2021-03-16] MEDS: PRENATAL VITAMINS W/ FOLIC ACID TABLET (FP) PO SCH (10:18)
[2021-03-16] MEDS: MELATONIN 5 MG TABLETS PO SCH (22:28)
[2021-03-16] MEDS: THIAMINE HCL 100 MG TABLET (FP) PO SCH (22:28)
[2021-03-17] MEDS ORDERED: chlordiazePOXIDE HCL 25 MG CAPSULE PO SCH (05:00)
[2021-03-17] MEDS: hydrOXYzine PAMOATE 25 MG CAPSULE (FP) PO SCH ×5 (06:27→22:03)
[2021-03-17] MEDS: chlordiazePOXIDE HCL 10 MG CAPSULE PO SCH ×4 (06:27→22:03)
[2021-03-17] MEDS: PRENATAL VITAMINS W/ FOLIC ACID TABLET (FP) PO SCH (10:27)
[2021-03-17] MEDS: THIAMINE HCL 100 MG TABLET (FP) PO SCH (22:03)
[2021-03-17] MEDS: MELATONIN 5 MG TABLETS PO SCH (22:03)
[2021-03-18] MEDS ORDERED: chlordiazePOXIDE HCL 10 MG CAPSULE PO PRN
[2021-03-18] MEDS: chlordiazePOXIDE HCL 10 MG CAPSULE PO SCH ×4 (05:04→22:26)
[2021-03-18] MEDS: hydrOXYzine PAMOATE 25 MG CAPSULE (FP) PO SCH ×5 (05:04→22:27)
[2021-03-18] MEDS: PRENATAL VITAMINS W/ FOLIC ACID TABLET (FP) PO SCH (10:38)
[2021-03-18] MEDS: MELATONIN 5 MG TABLETS PO SCH (22:25)
[2021-03-18] MEDS: THIAMINE HCL 100 MG TABLET (FP) PO SCH (22:25)
[2021-03-19] MEDS: chlordiazePOXIDE HCL 10 MG CAPSULE PO SCH ×2 (06:23→18:03)
[2021-03-19] MEDS: hydrOXYzine PAMOATE 25 MG CAPSULE (FP) PO SCH ×5 (06:24→22:25)
[2021-03-19] MEDS: PRENATAL VITAMINS W/ FOLIC ACID TABLET (FP) PO SCH (10:34)
[2021-03-19] MEDS: MELATONIN 5 MG TABLETS PO SCH (22:25)
[2021-03-19] MEDS: THIAMINE HCL 100 MG TABLET (FP) PO SCH (22:25)
[2021-03-20] MEDS ORDERED: chlordiazePOXIDE HCL 10 MG CAPSULE PO ONE (05:00)
[2021-03-20] MEDS: hydrOXYzine PAMOATE 25 MG CAPSULE (FP) PO SCH ×5 (06:04→22:37)
[2021-03-20] MEDS: PRENATAL VITAMINS W/ FOLIC ACID TABLET (FP) PO SCH (11:12)
[2021-03-20] MEDS: THIAMINE HCL 100 MG TABLET (FP) PO SCH (22:37)
[2021-03-20] MEDS: MELATONIN 5 MG TABLETS PO SCH (22:37)
[2021-03-21] MEDS: hydrOXYzine PAMOATE 25 MG CAPSULE (FP) PO SCH ×2 (07:25→10:30)
[2021-03-21] MEDS: PRENATAL VITAMINS W/ FOLIC ACID TABLET (FP) PO SCH (10:30)
[2021-03-21] MEDS: THIAMINE HCL 100 MG TABLET (FP) PO SCH (22:55)
[2021-03-21] MEDS: MELATONIN 5 MG TABLETS PO SCH (22:55)
[2021-03-22] MEDS: PRENATAL VITAMINS W/ FOLIC ACID TABLET (FP) PO SCH (10:31)
[2021-03-22 12:44] LABS: CALCIUM 8.7 mg/dL (8.5-10.1)
[2021-03-22 12:45] LABS: BLOOD UREA NITROGEN 17.6 mg/dL (7-18)
[2021-03-22 12:48] LABS: CREATININE 1.1 mg/dL (0.55-1.3)
[2021-03-22 12:50] LABS: BILIRUBIN,TOTAL 0.2 mg/dL (0.2-1)
[2021-03-22 13:17] VITALS: BP 117/65; PULSE 81; TEMP 98.2
== END 2021-03-22 13:27 | disposition other institution (70) | DRG 775 ==
LOC: YASAS 10:26 → Y3N 11:34
PROVIDERS: ADMIT Allergy & Immunology; ATTEND Allergy & Immunology
PROC: HZ2ZZZZ Detoxification Services for Substance Abuse Treatment (ICD-10-PCS; principal; 2021-03-15)
DX: F10.230 Alcohol dependence with withdrawal, uncomplicated (principal); F12.20 Cannabis dependence, uncomplicated; F16.10 Hallucinogen abuse, uncomplicated; F19.24 Other psychoactive substance dependence with psychoactive substance-induced mood disorder; A53.0 Latent syphilis, unspecified as early or late; E80.6 Other disorders of bilirubin metabolism; E78.5 Hyperlipidemia, unspecified; I25.10 Atherosclerotic heart disease of native coronary artery without angina pectoris; Z95.5 Presence of coronary angioplasty implant and graft; J45.20 Mild intermittent asthma, uncomplicated; R73.9 Hyperglycemia, unspecified; R79.89 Other specified abnormal findings of blood chemistry; Z79.02 Long term (current) use of antithrombotics/antiplatelets; Z86.19 Personal history of other infectious and parasitic diseases; Z86.11 Personal history of tuberculosis
CPT/HCPCS: 36415; 80048; 80053; 82247; 83036; 85027; 86593; 86780; C9803; U0003; U0005

== ENCOUNTER 2021-05-25 10:37 | Inpatient (IN) | payer OTHER ==
[2021-05-25] MEDS ORDERED: MAGNESIUM HYDROX 2400MG/30ML ORAL SUSPENSION 30 ML CUP PO PRN (11:18)
[2021-05-25] MEDS ORDERED: MAG HYDROX/AL HYDROX/SIMETH 30 ML UNIT-DOSE CUP PO PRN (11:18)
[2021-05-25] MEDS ORDERED: MENTHOL/PHENOL 1 EACH UD MM PRN (11:18)
[2021-05-25] MEDS ORDERED: ACETAMINOPHEN 325 MG TABLET (FP) PO PRN ×2 (11:18)
[2021-05-25] MEDS ORDERED: BISMUTH SUBSALICYLATE 262 MG/15 ML BTL PO PRN (11:18)
[2021-05-25] MEDS ORDERED: METHOCARBAMOL 500 MG TABLET PO PRN (11:18)
[2021-05-25] MEDS ORDERED: ONDANSETRON *ODT* 4 MG TABLET SL PRN (11:18)
[2021-05-25] MEDS ORDERED: IBUPROFEN 400 MG TABLET (FP) PO PRN (11:18)
[2021-05-25] MEDS ORDERED: chlordiazePOXIDE HCL 25 MG CAPSULE PO PRN (11:18)
[2021-05-25] MEDS ORDERED: MAGNESIUM CITRATE 300 ML BOTTLE PO PRN (11:18)
[2021-05-25] MEDS ORDERED: LOPERAMIDE HCL 2 MG CAPSULE PO PRN (11:18)
[2021-05-25] MEDS ORDERED: DICYCLOMINE HCL 10 MG CAPSULE PO PRN (11:18)
[2021-05-25] MEDS ORDERED: ALBUTEROL SO4 HFA INHALER IH PRN (11:23)
[2021-05-25 11:36] VITALS: BMI 29.7
[2021-05-25] MEDS: chlordiazePOXIDE HCL 25 MG CAPSULE PO SCH ×3 (12:46→22:09)
[2021-05-25] MEDS: PRENATAL VITAMINS W/ FOLIC ACID TABLET (FP) PO SCH (12:46)
[2021-05-25] MEDS: hydrOXYzine PAMOATE 25 MG CAPSULE (FP) PO SCH ×3 (14:43→22:09)
[2021-05-25 17:09] LABS: HEMATOCRIT 39.7 % (35.4-49); HEMOGLOBIN 12.9 GM/dL (11.7-16.9); MCH 29.2 pg (25.7-33.7); MCHC 32.5 g/dl (32.0-35.9); MEAN PLT VOLUME 7.7 fl (7.5-11.1); PLATELET COUNT 195 10^3/uL (134-434); RBC 4.41 M/mm3 (4.00-5.60); RDW 14.7 % (11.9-15.9); WHITE BLOOD COUNT 5.9 K/mm3 (4.0-10.0)
[2021-05-25 17:15] LABS: CALCIUM 8.6 mg/dL (8.5-10.1)
[2021-05-25 17:16] LABS: ALBUMIN 3.7 g/dl (3.4-5.0); BLOOD UREA NITROGEN 13.3 mg/dL (7-18)
[2021-05-25 17:17] LABS: CREATININE 1.3 mg/dL (0.55-1.3)
[2021-05-25 17:19] LABS: BILIRUBIN,TOTAL 0.6 mg/dL (0.2-1); TOT PROT 7.1 g/dl (6.4-8.2)
[2021-05-25] MEDS: THIAMINE HCL 100 MG TABLET (FP) PO SCH (22:09)
[2021-05-25] MEDS: MELATONIN 5 MG TABLETS PO SCH (22:09)
[2021-05-25] MEDS: ATORVASTATIN CA 20 MG TABLET (FP) PO SCH (22:09)
[2021-05-26] MEDS: hydrOXYzine PAMOATE 25 MG CAPSULE (FP) PO SCH ×5 (05:59→22:20)
[2021-05-26] MEDS: chlordiazePOXIDE HCL 25 MG CAPSULE PO SCH ×4 (06:00→22:20)
[2021-05-26] MEDS: PRENATAL VITAMINS W/ FOLIC ACID TABLET (FP) PO SCH (10:54)
[2021-05-26] MEDS: ASPIRIN 81 MG CHEWABLE TABLETS PO SCH (10:54)
[2021-05-26] MEDS: metoPROLOL SUCCINATE 25 MG TAB.SR.24H (FP) PO SCH (11:40)
[2021-05-26] MEDS: THIAMINE HCL 100 MG TABLET (FP) PO SCH (22:20)
[2021-05-26] MEDS: ATORVASTATIN CA 20 MG TABLET (FP) PO SCH (22:20)
[2021-05-26] MEDS: MELATONIN 5 MG TABLETS PO SCH (22:20)
[2021-05-27] MEDS: chlordiazePOXIDE HCL 25 MG CAPSULE PO SCH ×4 (06:34→23:55)
[2021-05-27] MEDS: hydrOXYzine PAMOATE 25 MG CAPSULE (FP) PO SCH ×5 (06:35→23:54)
[2021-05-27] MEDS: PRENATAL VITAMINS W/ FOLIC ACID TABLET (FP) PO SCH (10:59)
[2021-05-27] MEDS: metoPROLOL SUCCINATE 25 MG TAB.SR.24H (FP) PO SCH (10:59)
[2021-05-27] MEDS: ASPIRIN 81 MG CHEWABLE TABLETS PO SCH (10:59)
[2021-05-27 16:08] LABS: SARS-CoV-2 NAA Not Detected (Not Detected)
[2021-05-27] MEDS: THIAMINE HCL 100 MG TABLET (FP) PO SCH (23:54)
[2021-05-27] MEDS: ATORVASTATIN CA 20 MG TABLET (FP) PO SCH (23:54)
[2021-05-27] MEDS: MELATONIN 5 MG TABLETS PO SCH (23:54)
[2021-05-28] MEDS ORDERED: chlordiazePOXIDE HCL 10 MG CAPSULE PO PRN
[2021-05-28] MEDS: chlordiazePOXIDE HCL 10 MG CAPSULE PO SCH ×4 (06:10→22:22)
[2021-05-28] MEDS: hydrOXYzine PAMOATE 25 MG CAPSULE (FP) PO SCH ×5 (06:10→22:22)
[2021-05-28] MEDS: ASPIRIN 81 MG CHEWABLE TABLETS PO SCH (10:58)
[2021-05-28] MEDS: PRENATAL VITAMINS W/ FOLIC ACID TABLET (FP) PO SCH (10:58)
[2021-05-28] MEDS: metoPROLOL SUCCINATE 25 MG TAB.SR.24H (FP) PO SCH (10:58)
[2021-05-28] MEDS: MELATONIN 5 MG TABLETS PO SCH (22:22)
[2021-05-28] MEDS: ATORVASTATIN CA 20 MG TABLET (FP) PO SCH (22:22)
[2021-05-28] MEDS: THIAMINE HCL 100 MG TABLET (FP) PO SCH (22:22)
[2021-05-29] MEDS: chlordiazePOXIDE HCL 10 MG CAPSULE PO SCH ×2 (06:22→17:42)
[2021-05-29] MEDS: hydrOXYzine PAMOATE 25 MG CAPSULE (FP) PO SCH ×4 (06:22→17:42)
[2021-05-29] MEDS: PRENATAL VITAMINS W/ FOLIC ACID TABLET (FP) PO SCH (10:43)
[2021-05-29] MEDS: metoPROLOL SUCCINATE 25 MG TAB.SR.24H (FP) PO SCH (10:43)
[2021-05-29] MEDS: ASPIRIN 81 MG CHEWABLE TABLETS PO SCH (10:43)
[2021-05-29 16:54] VITALS: TEMP 97.8
[2021-05-29 20:30] VITALS: BP 141/84; PULSE 87
[2021-05-30] MEDS ORDERED: chlordiazePOXIDE HCL 10 MG CAPSULE PO ONE (05:00)
== END 2021-05-29 20:17 | disposition home or self-care (01) | DRG 774 ==
LOC: YASAS 10:37 → Y3N 12:11
PROVIDERS: ADMIT Allergy & Immunology; ATTEND Allergy & Immunology
PROC: HZ2ZZZZ Detoxification Services for Substance Abuse Treatment (ICD-10-PCS; principal; 2021-05-25)
DX: F10.230 Alcohol dependence with withdrawal, uncomplicated (principal); F14.20 Cocaine dependence, uncomplicated; F16.10 Hallucinogen abuse, uncomplicated; F12.20 Cannabis dependence, uncomplicated; J45.20 Mild intermittent asthma, uncomplicated; E78.00 Pure hypercholesterolemia, unspecified; I25.10 Atherosclerotic heart disease of native coronary artery without angina pectoris; I10 Essential (primary) hypertension; Z95.5 Presence of coronary angioplasty implant and graft; Z86.11 Personal history of tuberculosis; Z86.19 Personal history of other infectious and parasitic diseases
CPT/HCPCS: 36415; 80053; 85027; 86593; 86780; 87811; 93005; 93010; C9803-CS; U0003; U0005

== ENCOUNTER 2021-09-12 09:33 | Inpatient (IN) | payer OTHER ==
[2021-09-12 10:10] VITALS: BMI 27.0
[2021-09-12] MEDS ORDERED: DICYCLOMINE HCL 10 MG CAPSULE PO PRN (11:08)
[2021-09-12] MEDS ORDERED: LOPERAMIDE HCL 2 MG CAPSULE PO PRN (11:08)
[2021-09-12] MEDS ORDERED: MAGNESIUM CITRATE 300 ML BOTTLE PO PRN (11:08)
[2021-09-12] MEDS ORDERED: IBUPROFEN 600 MG TABLET (FP) PO PRN (11:08)
[2021-09-12] MEDS ORDERED: MAGNESIUM HYDROX 2400MG/30ML ORAL SUSPENSION 30 ML CUP PO PRN (11:08)
[2021-09-12] MEDS ORDERED: IBUPROFEN 400 MG TABLET (FP) PO PRN (11:08)
[2021-09-12] MEDS ORDERED: MAG HYDROX/AL HYDROX/SIMETH 30 ML UNIT-DOSE CUP PO PRN (11:08)
[2021-09-12] MEDS ORDERED: BENZOCAINE/MENTHOL (CHLORASEPTIC ) LOZENGE MM PRN (11:08)
[2021-09-12] MEDS ORDERED: BISMUTH SUBSALICYLATE 524 MG/30 ML PO PRN (11:08)
[2021-09-12] MEDS ORDERED: METHOCARBAMOL 500 MG TABLET PO PRN (11:08)
[2021-09-12] MEDS ORDERED: ONDANSETRON *ODT* 4 MG TABLET SL PRN (11:08)
[2021-09-12] MEDS ORDERED: ACETAMINOPHEN 325 MG TABLET (FP) PO PRN ×2 (11:08)
[2021-09-12] MEDS ORDERED: ALBUTEROL SO4 HFA INHALER IH PRN (12:33)
[2021-09-12] MEDS: CLOPIDOGREL BISULFATE 75 MG TABLET (FP) PO SCH (13:06)
[2021-09-12] MEDS: metoPROLOL SUCCINATE 25 MG TAB.SR.24H (FP) PO SCH (13:07)
[2021-09-12] MEDS: hydrOXYzine PAMOATE 25 MG CAPSULE (FP) PO SCH ×3 (13:07→22:52)
[2021-09-12] MEDS ORDERED: MELATONIN 5 MG TABLETS PO SCH (22:00)
[2021-09-12] MEDS ORDERED: THIAMINE HCL 100 MG TABLET (FP) PO SCH (22:00)
[2021-09-12] MEDS ORDERED: ATORVASTATIN CA 20 MG TABLET (FP) PO SCH (22:00)
[2021-09-13 06:31] VITALS: RESP 18
[2021-09-13] MEDS: hydrOXYzine PAMOATE 25 MG CAPSULE (FP) PO SCH ×3 (07:59→13:33)
[2021-09-13] MEDS ORDERED: PRENATAL VITAMINS W/ FOLIC ACID TABLET (FP) PO SCH (10:00)
[2021-09-13] MEDS ORDERED: ASPIRIN 81 MG CHEWABLE TABLETS PO SCH (10:00)
[2021-09-13] MEDS: CLOPIDOGREL BISULFATE 75 MG TABLET (FP) PO SCH (10:19)
[2021-09-13] MEDS: metoPROLOL SUCCINATE 25 MG TAB.SR.24H (FP) PO SCH (10:20)
[2021-09-13 10:47] LABS: HEMATOCRIT 40.8 % (35.4-49); HEMOGLOBIN 13.1 GM/dL (11.7-16.9); MCH 29.7 pg (25.7-33.7); MCHC 32.2 g/dl (32.0-35.9); MEAN CELL VOLUME 92.1 fl (80-96); MEAN PLT VOLUME 7.9 fl (7.5-11.1); PLATELET COUNT 207 10^3/uL (134-434); RBC 4.43 M/mm3 (4.00-5.60); RDW 15.7 % (11.9-15.9); WHITE BLOOD COUNT 4.9 K/mm3 (4.0-10.0)
[2021-09-13 10:50] LABS: ALBUMIN 3.2 g/dl (3.4-5.0); BLOOD UREA NITROGEN 14.1 mg/dL (7-18)
[2021-09-13 10:54] LABS: BILIRUBIN,TOTAL 0.6 mg/dL (0.2-1)
[2021-09-13 10:55] LABS: TOT PROT 6.3 g/dl (6.4-8.2)
[2021-09-13 12:58] VITALS: BP 118/61; PULSE 77; TEMP 97.9
== END 2021-09-13 14:00 | disposition other institution (70) | DRG 775 ==
LOC: YASAS 09:33 → UNDOADMIN 11:49 → Y3N 11:49 → UNDODISIN 09-13 14:00
PROVIDERS: ADMIT Allergy & Immunology; ATTEND Surgery
PROC: HZ2ZZZZ Detoxification Services for Substance Abuse Treatment (ICD-10-PCS; principal; 2021-09-12)
DX: F10.230 Alcohol dependence with withdrawal, uncomplicated (principal); F12.20 Cannabis dependence, uncomplicated; F41.9 Anxiety disorder, unspecified; E78.5 Hyperlipidemia, unspecified; I25.10 Atherosclerotic heart disease of native coronary artery without angina pectoris; I10 Essential (primary) hypertension; J45.20 Mild intermittent asthma, uncomplicated; Z28.310 Unvaccinated for COVID-19; Z86.16 Personal history of COVID-19
CPT/HCPCS: 36415; 71046-TC-FY; 80053; 85027; 86593; 86780; 87811; C9803-CS; U0003; U0005

== ENCOUNTER 2021-09-13 13:58 | Inpatient (IN) | payer OTHER ==
[2021-09-13] MEDS ORDERED: NICOTINE 10 MG CARTRIDGE (INHALER) IH PRN (15:51)
[2021-09-13] MEDS ORDERED: IBUPROFEN 400 MG TABLET (FP) PO PRN (15:51)
[2021-09-13] MEDS ORDERED: MAG HYDROX/AL HYDROX/SIMETH 30 ML UNIT-DOSE CUP PO PRN (15:51)
[2021-09-13] MEDS ORDERED: ACETAMINOPHEN 325 MG TABLET (FP) PO PRN (15:51)
[2021-09-13] MEDS ORDERED: P-EPHED 60MG/TRIPROLIDI 2.5MG TABLET PO PRN (15:51)
[2021-09-13] MEDS ORDERED: LOPERAMIDE HCL 2 MG CAPSULE PO PRN (15:51)
[2021-09-13] MEDS ORDERED: MAGNESIUM CITRATE 300 ML BOTTLE PO PRN (15:51)
[2021-09-13] MEDS ORDERED: guaiFENesin 200 MG/10 ML 10 ML UNIT-DOSE CUPS PO PRN (15:51)
[2021-09-13] MEDS ORDERED: MAGNESIUM HYDROX 2400MG/30ML ORAL SUSPENSION 30 ML CUP PO PRN (15:51)
[2021-09-13] MEDS ORDERED: NICOTINE POLACRILEX 2 MG GUM BC PRN (15:51)
[2021-09-13] MEDS ORDERED: ALBUTEROL SO4 HFA INHALER IH PRN (16:01)
[2021-09-13] MEDS: hydrOXYzine PAMOATE 25 MG CAPSULE (FP) PO SCH ×2 (18:05→21:49)
[2021-09-13] MEDS ORDERED: ATORVASTATIN CA 10 MG TABLET (FP) PO SCH (22:00)
[2021-09-13] MEDS ORDERED: MELATONIN 5 MG TABLETS PO SCH (22:00)
[2021-09-13] MEDS ORDERED: THIAMINE HCL 100 MG TABLET (FP) PO SCH (22:00)
[2021-09-14] MEDS: hydrOXYzine PAMOATE 25 MG CAPSULE (FP) PO SCH ×2 (06:24→10:41)
[2021-09-14 06:41] VITALS: RESP 20; TEMP 97.4
[2021-09-14] MEDS ORDERED: NICOTINE 7 MG/24 HOURS TOPICAL PATCH TD SCH (10:00)
[2021-09-14] MEDS ORDERED: PRENATAL VITAMINS W/ FOLIC ACID TABLET (FP) PO SCH (10:00)
[2021-09-14] MEDS ORDERED: ASPIRIN 81 MG CHEWABLE TABLETS PO SCH (10:00)
[2021-09-14] MEDS ORDERED: CLOPIDOGREL BISULFATE 75 MG TABLET (FP) PO SCH (10:00)
[2021-09-14] MEDS ORDERED: metoPROLOL SUCCINATE 25 MG TAB.SR.24H (FP) PO SCH (10:00)
[2021-09-14 10:33] VITALS: BP 108/73; PULSE 79
[2021-09-14 17:26] LABS: URINE APPEARANCE CLEAR; URINE BILIRUBIN NEGATIVE (NEGATIVE); URINE COLOR YELLOW; URINE GLUCOSE (UA) NEGATIVE (NEGATIVE); URINE KETONE NEGATIVE (NEGATIVE); URINE LEUK ESTERASE NEGATIVE (NEGATIVE); URINE NITRITE NEGATIVE (NEGATIVE); URINE PROTEIN TRACE (NEGATIVE)
== END 2021-09-14 13:39 | disposition left against medical advice (07) | DRG 770 ==
LOC: YASAS 13:58 → Y3E 13:59
PROVIDERS: ADMIT Allergy & Immunology; ATTEND Psychiatry & Neurology Pain Medicine
PROC: HZ42ZZZ Group Counseling for Substance Abuse Treatment, Cognitive-Behavioral (ICD-10-PCS; principal; 2021-09-13)
DX: F10.20 Alcohol dependence, uncomplicated (principal); F41.9 Anxiety disorder, unspecified; I25.10 Atherosclerotic heart disease of native coronary artery without angina pectoris; I10 Essential (primary) hypertension; J45.909 Unspecified asthma, uncomplicated; Z86.19 Personal history of other infectious and parasitic diseases
CPT/HCPCS: 36415; 81003; 86803

== ENCOUNTER 2021-12-13 09:41 | Inpatient (IN) | payer OTHER ==
[2021-12-13 10:25] VITALS: BMI 27.2
[2021-12-13] MEDS ORDERED: METHOCARBAMOL 500 MG TABLET PO PRN (11:39)
[2021-12-13] MEDS ORDERED: chlordiazePOXIDE HCL 25 MG CAPSULE PO PRN (11:39)
[2021-12-13] MEDS ORDERED: BENZOCAINE/MENTHOL (CHLORASEPTIC ) LOZENGE MM PRN (11:39)
[2021-12-13] MEDS ORDERED: ACETAMINOPHEN 325 MG TABLET (FP) PO PRN ×2 (11:39)
[2021-12-13] MEDS ORDERED: BISMUTH SUBSALICYLATE 262 MG/15 ML BTL PO PRN (11:39)
[2021-12-13] MEDS ORDERED: MAG HYDROX/AL HYDROX/SIMETH 30 ML UNIT-DOSE CUP PO PRN (11:39)
[2021-12-13] MEDS ORDERED: NALOXONE HCL (KLOXXADO) 8 MG SPRAY NS PRN (11:39)
[2021-12-13] MEDS ORDERED: DICYCLOMINE HCL 10 MG CAPSULE PO PRN (11:39)
[2021-12-13] MEDS ORDERED: MAGNESIUM HYDROX 2400MG/30ML ORAL SUSPENSION 30 ML CUP PO PRN (11:39)
[2021-12-13] MEDS ORDERED: IBUPROFEN 600 MG TABLET (FP) PO PRN (11:39)
[2021-12-13] MEDS ORDERED: IBUPROFEN 400 MG TABLET (FP) PO PRN (11:39)
[2021-12-13] MEDS ORDERED: NICOTINE 10 MG CARTRIDGE (INHALER) IH PRN (11:39)
[2021-12-13] MEDS ORDERED: ONDANSETRON *ODT* 4 MG TABLET SL PRN (11:39)
[2021-12-13] MEDS ORDERED: MAGNESIUM CITRATE 300 ML BOTTLE PO PRN (11:39)
[2021-12-13] MEDS ORDERED: LOPERAMIDE HCL 2 MG CAPSULE PO PRN (11:39)
[2021-12-13] MEDS ORDERED: ALBUTEROL SO4 HFA INHALER IH PRN (11:42)
[2021-12-13] MEDS: chlordiazePOXIDE HCL 25 MG CAPSULE PO SCH ×3 (12:00→23:14)
[2021-12-13] MEDS ORDERED: chlordiazePOXIDE HCL 25 MG CAPSULE ONE (12:43)
[2021-12-13] MEDS: PRENATAL VITAMINS W/ FOLIC ACID TABLET (FP) PO SCH (12:58)
[2021-12-13] MEDS: NICOTINE 7 MG/24 HOURS TOPICAL PATCH TD SCH (12:58)
[2021-12-13 15:22] LABS: HEMATOCRIT 38.5 % (35.4-49); HEMOGLOBIN 12.9 GM/dL (11.7-16.9); MCH 30.9 pg (25.7-33.7); MCHC 33.6 g/dl (32.0-35.9); MEAN CELL VOLUME 92.1 fl (80-96); MEAN PLT VOLUME 7.5 fl (7.5-11.1); PLATELET COUNT 179 10^3/uL (134-434); RBC 4.19 M/mm3 (4.00-5.60); RDW 14.1 % (11.9-15.9); WHITE BLOOD COUNT 4.7 K/mm3 (4.0-10.0)
[2021-12-13 15:23] LABS: ALBUMIN 3.8 g/dl (3.4-5.0); CALCIUM 9.2 mg/dL (8.5-10.1)
[2021-12-13 15:26] LABS: CREATININE 1.2 mg/dL (0.55-1.3)
[2021-12-13 15:28] LABS: BILIRUBIN,TOTAL 0.9 mg/dL (0.2-1); TOT PROT 6.8 g/dl (6.4-8.2)
[2021-12-13] MEDS: THIAMINE HCL 100 MG TABLET (FP) PO SCH (23:13)
[2021-12-13] MEDS: ATORVASTATIN CA 20 MG TABLET (FP) PO SCH (23:13)
[2021-12-13] MEDS: MELATONIN 5 MG TABLETS PO SCH (23:13)
[2021-12-14] MEDS: chlordiazePOXIDE HCL 25 MG CAPSULE PO SCH ×3 (05:45→18:40)
[2021-12-14] MEDS: CLOPIDOGREL BISULFATE 75 MG TABLET (FP) PO SCH (10:42)
[2021-12-14] MEDS: metoPROLOL SUCCINATE 25 MG TAB.SR.24H (FP) PO SCH (10:42)
[2021-12-14] MEDS: NICOTINE 7 MG/24 HOURS TOPICAL PATCH TD SCH (10:42)
[2021-12-14] MEDS: ASPIRIN 81 MG CHEWABLE TABLETS PO SCH (10:42)
[2021-12-14] MEDS: PRENATAL VITAMINS W/ FOLIC ACID TABLET (FP) PO SCH (10:43)
[2021-12-14] MEDS: LACTULOSE 20 GM/30 ML UDC (FOR ORAL USE ONLY) PO SCH ×2 (15:23→22:08)
[2021-12-14] MEDS ORDERED: chlordiazePOXIDE HCL 25 MG CAPSULE PO SCH (18:18)
[2021-12-14] MEDS ORDERED: chlordiazePOXIDE HCL 10 MG CAPSULE PO SCH (21:04)
[2021-12-14] MEDS: MELATONIN 5 MG TABLETS PO SCH (22:07)
[2021-12-14] MEDS: THIAMINE HCL 100 MG TABLET (FP) PO SCH (22:07)
[2021-12-14] MEDS: ATORVASTATIN CA 20 MG TABLET (FP) PO SCH (22:07)
[2021-12-15] MEDS ORDERED: chlordiazePOXIDE HCL 25 MG CAPSULE PO SCH (05:00)
[2021-12-15] MEDS: LACTULOSE 20 GM/30 ML UDC (FOR ORAL USE ONLY) PO SCH ×4 (05:48→22:08)
[2021-12-15] MEDS: chlordiazePOXIDE 5 MG CAPSULE PO SCH ×4 (05:49→22:08)
[2021-12-15] MEDS: ASPIRIN 81 MG CHEWABLE TABLETS PO SCH (10:32)
[2021-12-15] MEDS: PRENATAL VITAMINS W/ FOLIC ACID TABLET (FP) PO SCH (10:32)
[2021-12-15] MEDS: CLOPIDOGREL BISULFATE 75 MG TABLET (FP) PO SCH (10:32)
[2021-12-15] MEDS: NICOTINE 7 MG/24 HOURS TOPICAL PATCH TD SCH (10:32)
[2021-12-15] MEDS: metoPROLOL SUCCINATE 25 MG TAB.SR.24H (FP) PO SCH (10:32)
[2021-12-15 11:26] LABS: CALCIUM 8.3 mg/dL (8.5-10.1)
[2021-12-15 11:27] LABS: BLOOD UREA NITROGEN 11.6 mg/dL (7-18)
[2021-12-15 11:30] LABS: CREATININE 0.9 mg/dL (0.55-1.3)
[2021-12-15] MEDS: hydrOXYzine PAMOATE 25 MG CAPSULE (FP) PO PRN ×2 (17:41→22:10)
[2021-12-15] MEDS: MELATONIN 5 MG TABLETS PO SCH (22:07)
[2021-12-15] MEDS: THIAMINE HCL 100 MG TABLET (FP) PO SCH (22:07)
[2021-12-15] MEDS: ATORVASTATIN CA 20 MG TABLET (FP) PO SCH (22:08)
[2021-12-16] MEDS ORDERED: chlordiazePOXIDE HCL 10 MG CAPSULE PO PRN
[2021-12-16] MEDS: chlordiazePOXIDE HCL 10 MG CAPSULE PO SCH ×4 (05:52→22:17)
[2021-12-16] MEDS: NICOTINE 7 MG/24 HOURS TOPICAL PATCH TD SCH (10:50)
[2021-12-16] MEDS: metoPROLOL SUCCINATE 25 MG TAB.SR.24H (FP) PO SCH (10:51)
[2021-12-16] MEDS: LACTULOSE 20 GM/30 ML UDC (FOR ORAL USE ONLY) PO SCH ×4 (10:51→22:16)
[2021-12-16] MEDS: CLOPIDOGREL BISULFATE 75 MG TABLET (FP) PO SCH (10:51)
[2021-12-16] MEDS: ASPIRIN 81 MG CHEWABLE TABLETS PO SCH (10:51)
[2021-12-16] MEDS: PRENATAL VITAMINS W/ FOLIC ACID TABLET (FP) PO SCH (10:52)
[2021-12-16] MEDS: THIAMINE HCL 100 MG TABLET (FP) PO SCH (22:16)
[2021-12-16] MEDS: MELATONIN 5 MG TABLETS PO SCH (22:16)
[2021-12-16] MEDS: ATORVASTATIN CA 20 MG TABLET (FP) PO SCH (22:17)
[2021-12-17] MEDS: chlordiazePOXIDE HCL 10 MG CAPSULE PO SCH ×2 (05:49→17:34)
[2021-12-17] MEDS: metoPROLOL SUCCINATE 25 MG TAB.SR.24H (FP) PO SCH (10:12)
[2021-12-17] MEDS: CLOPIDOGREL BISULFATE 75 MG TABLET (FP) PO SCH (10:13)
[2021-12-17] MEDS: PRENATAL VITAMINS W/ FOLIC ACID TABLET (FP) PO SCH (10:13)
[2021-12-17] MEDS: NICOTINE 7 MG/24 HOURS TOPICAL PATCH TD SCH (10:13)
[2021-12-17] MEDS: ASPIRIN 81 MG CHEWABLE TABLETS PO SCH (10:13)
[2021-12-17] MEDS: LACTULOSE 20 GM/30 ML UDC (FOR ORAL USE ONLY) PO SCH ×3 (10:14→22:09)
[2021-12-17] MEDS: ATORVASTATIN CA 20 MG TABLET (FP) PO SCH (22:09)
[2021-12-17] MEDS: THIAMINE HCL 100 MG TABLET (FP) PO SCH (22:09)
[2021-12-17] MEDS: hydrOXYzine PAMOATE 25 MG CAPSULE (FP) PO PRN (22:10)
[2021-12-17] MEDS: MELATONIN 5 MG TABLETS PO SCH (23:05)
[2021-12-18] MEDS ORDERED: chlordiazePOXIDE HCL 10 MG CAPSULE PO ONE (05:00)
[2021-12-18] MEDS ORDERED: chlordiazePOXIDE 5 MG CAPSULE PO ONE (05:00)
[2021-12-18 09:06] VITALS: BP 122/69; PULSE 73; RESP 16; TEMP 97.1
[2021-12-18] MEDS: NICOTINE 7 MG/24 HOURS TOPICAL PATCH TD SCH (10:39)
[2021-12-18] MEDS: metoPROLOL SUCCINATE 25 MG TAB.SR.24H (FP) PO SCH (10:39)
[2021-12-18] MEDS: PRENATAL VITAMINS W/ FOLIC ACID TABLET (FP) PO SCH (10:39)
[2021-12-18] MEDS: CLOPIDOGREL BISULFATE 75 MG TABLET (FP) PO SCH (10:39)
[2021-12-18] MEDS: ASPIRIN 81 MG CHEWABLE TABLETS PO SCH (10:39)
[2021-12-18] MEDS: LACTULOSE 20 GM/30 ML UDC (FOR ORAL USE ONLY) PO SCH (10:40)
== END 2021-12-18 11:19 | disposition other institution (70) | DRG 774 ==
LOC: YASAS 09:41 → Y3N 12:29
PROVIDERS: ADMIT Allergy & Immunology; ATTEND Surgery
PROC: HZ2ZZZZ Detoxification Services for Substance Abuse Treatment (ICD-10-PCS; principal; 2021-12-13)
DX: F10.230 Alcohol dependence with withdrawal, uncomplicated (principal); F14.20 Cocaine dependence, uncomplicated; F16.20 Hallucinogen dependence, uncomplicated; F12.20 Cannabis dependence, uncomplicated; F17.210 Nicotine dependence, cigarettes, uncomplicated; F19.24 Other psychoactive substance dependence with psychoactive substance-induced mood disorder; F41.9 Anxiety disorder, unspecified; E72.20 Disorder of urea cycle metabolism, unspecified; E78.5 Hyperlipidemia, unspecified; I25.10 Atherosclerotic heart disease of native coronary artery without angina pectoris; I10 Essential (primary) hypertension; J45.20 Mild intermittent asthma, uncomplicated; Z86.19 Personal history of other infectious and parasitic diseases; Z28.310 Unvaccinated for COVID-19; Z28.9 Immunization not carried out for unspecified reason
CPT/HCPCS: 36415; 80048; 80053; 82140; 83036; 85027; 86593; 86780; C9803-CS; U0003; U0005

== ENCOUNTER 2021-12-18 11:25 | Inpatient (IN) | payer OTHER ==
[2021-12-18] MEDS ORDERED: ALBUTEROL SO4 HFA INHALER IH PRN (12:46)
[2021-12-18] MEDS ORDERED: ASPIRIN 81 MG CHEWABLE TABLETS PO SCH (13:00)
[2021-12-18] MEDS ORDERED: guaiFENesin 200 MG/10 ML 10 ML UNIT-DOSE CUPS PO PRN (13:35)
[2021-12-18] MEDS ORDERED: MAG HYDROX/AL HYDROX/SIMETH 30 ML UNIT-DOSE CUP PO PRN (13:35)
[2021-12-18] MEDS ORDERED: NICOTINE 10 MG CARTRIDGE (INHALER) IH PRN (13:35)
[2021-12-18] MEDS ORDERED: ACETAMINOPHEN 325 MG TABLET (FP) PO PRN (13:35)
[2021-12-18] MEDS ORDERED: MAGNESIUM HYDROX 2400MG/30ML ORAL SUSPENSION 30 ML CUP PO PRN (13:35)
[2021-12-18] MEDS ORDERED: MAGNESIUM CITRATE 300 ML BOTTLE PO PRN (13:35)
[2021-12-18] MEDS ORDERED: LOPERAMIDE HCL 2 MG CAPSULE PO PRN (13:35)
[2021-12-18] MEDS ORDERED: P-EPHED 60MG/TRIPROLIDI 2.5MG TABLET PO PRN (13:35)
[2021-12-18] MEDS ORDERED: hydrOXYzine PAMOATE 25 MG CAPSULE (FP) PO PRN (13:35)
[2021-12-18] MEDS ORDERED: IBUPROFEN 400 MG TABLET (FP) PO PRN (13:35)
[2021-12-18] MEDS: NICOTINE 7 MG/24 HOURS TOPICAL PATCH TD SCH (14:19)
[2021-12-18] MEDS: PRENATAL VITAMINS W/ FOLIC ACID TABLET (FP) PO SCH (14:19)
[2021-12-18] MEDS: THIAMINE HCL 100 MG TABLET (FP) PO SCH (21:17)
[2021-12-18] MEDS: MELATONIN 5 MG TABLETS PO SCH (21:17)
[2021-12-18] MEDS: ATORVASTATIN CA 20 MG TABLET (FP) PO SCH (21:17)
[2021-12-19] MEDS: ASPIRIN 81 MG CHEWABLE TABLETS PO SCH (09:42)
[2021-12-19] MEDS: PRENATAL VITAMINS W/ FOLIC ACID TABLET (FP) PO SCH (09:42)
[2021-12-19] MEDS: metoPROLOL SUCCINATE 25 MG TAB.SR.24H (FP) PO SCH (09:43)
[2021-12-19] MEDS: CLOPIDOGREL BISULFATE 75 MG TABLET (FP) PO SCH (09:43)
[2021-12-19] MEDS: NICOTINE 7 MG/24 HOURS TOPICAL PATCH TD SCH (11:03)
[2021-12-19] MEDS: THIAMINE HCL 100 MG TABLET (FP) PO SCH (21:10)
[2021-12-19] MEDS: ATORVASTATIN CA 20 MG TABLET (FP) PO SCH (21:10)
[2021-12-19] MEDS: MELATONIN 5 MG TABLETS PO SCH (21:10)
[2021-12-20] MEDS: PRENATAL VITAMINS W/ FOLIC ACID TABLET (FP) PO SCH (10:31)
[2021-12-20] MEDS: ASPIRIN 81 MG CHEWABLE TABLETS PO SCH (10:31)
[2021-12-20] MEDS: metoPROLOL SUCCINATE 25 MG TAB.SR.24H (FP) PO SCH (10:31)
[2021-12-20] MEDS: NICOTINE 7 MG/24 HOURS TOPICAL PATCH TD SCH (10:31)
[2021-12-20] MEDS: CLOPIDOGREL BISULFATE 75 MG TABLET (FP) PO SCH (10:31)
[2021-12-20 14:06] LABS: HIV INTERPRETATION NEGATIVE (NEGATIVE)
[2021-12-20] MEDS: ATORVASTATIN CA 20 MG TABLET (FP) PO SCH (21:46)
[2021-12-20] MEDS: THIAMINE HCL 100 MG TABLET (FP) PO SCH (21:46)
[2021-12-20] MEDS: MELATONIN 5 MG TABLETS PO SCH (21:46)
[2021-12-21] MEDS: metoPROLOL SUCCINATE 25 MG TAB.SR.24H (FP) PO SCH (10:14)
[2021-12-21] MEDS: CLOPIDOGREL BISULFATE 75 MG TABLET (FP) PO SCH (10:14)
[2021-12-21] MEDS: NICOTINE 7 MG/24 HOURS TOPICAL PATCH TD SCH (10:14)
[2021-12-21] MEDS: PRENATAL VITAMINS W/ FOLIC ACID TABLET (FP) PO SCH (10:14)
[2021-12-21] MEDS: ASPIRIN 81 MG CHEWABLE TABLETS PO SCH (10:14)
[2021-12-21] MEDS: MELATONIN 5 MG TABLETS PO SCH (21:04)
[2021-12-21] MEDS: THIAMINE HCL 100 MG TABLET (FP) PO SCH (21:04)
[2021-12-21] MEDS: ATORVASTATIN CA 20 MG TABLET (FP) PO SCH (21:04)
[2021-12-22 06:56] VITALS: RESP 18
[2021-12-22] MEDS: PRENATAL VITAMINS W/ FOLIC ACID TABLET (FP) PO SCH (09:46)
[2021-12-22] MEDS: CLOPIDOGREL BISULFATE 75 MG TABLET (FP) PO SCH (09:46)
[2021-12-22] MEDS: metoPROLOL SUCCINATE 25 MG TAB.SR.24H (FP) PO SCH (09:46)
[2021-12-22] MEDS: ASPIRIN 81 MG CHEWABLE TABLETS PO SCH (09:46)
[2021-12-22] MEDS: NICOTINE 7 MG/24 HOURS TOPICAL PATCH TD SCH (09:47)
[2021-12-22] MEDS: ATORVASTATIN CA 20 MG TABLET (FP) PO SCH (21:38)
[2021-12-22] MEDS: MELATONIN 5 MG TABLETS PO SCH (21:38)
[2021-12-22] MEDS: THIAMINE HCL 100 MG TABLET (FP) PO SCH (21:38)
[2021-12-23] MEDS: NICOTINE 7 MG/24 HOURS TOPICAL PATCH TD SCH (10:20)
[2021-12-23] MEDS: ASPIRIN 81 MG CHEWABLE TABLETS PO SCH (10:20)
[2021-12-23] MEDS: metoPROLOL SUCCINATE 25 MG TAB.SR.24H (FP) PO SCH (10:20)
[2021-12-23] MEDS: PRENATAL VITAMINS W/ FOLIC ACID TABLET (FP) PO SCH (10:20)
[2021-12-23] MEDS: CLOPIDOGREL BISULFATE 75 MG TABLET (FP) PO SCH (10:20)
[2021-12-23] MEDS ORDERED: ONDANSETRON *ODT* 4 MG TABLET SL PRN (12:40)
[2021-12-23] MEDS: ATORVASTATIN CA 20 MG TABLET (FP) PO SCH (21:20)
[2021-12-23] MEDS: MELATONIN 5 MG TABLETS PO SCH (21:20)
[2021-12-23] MEDS: THIAMINE HCL 100 MG TABLET (FP) PO SCH (21:20)
[2021-12-24] MEDS: PRENATAL VITAMINS W/ FOLIC ACID TABLET (FP) PO SCH (09:55)
[2021-12-24] MEDS: ASPIRIN 81 MG CHEWABLE TABLETS PO SCH (09:55)
[2021-12-24] MEDS: NICOTINE 7 MG/24 HOURS TOPICAL PATCH TD SCH (09:55)
[2021-12-24] MEDS: CLOPIDOGREL BISULFATE 75 MG TABLET (FP) PO SCH (09:55)
[2021-12-24] MEDS: metoPROLOL SUCCINATE 25 MG TAB.SR.24H (FP) PO SCH (10:50)
[2021-12-24] MEDS: ATORVASTATIN CA 20 MG TABLET (FP) PO SCH (21:41)
[2021-12-24] MEDS: MELATONIN 5 MG TABLETS PO SCH (21:41)
[2021-12-24] MEDS: THIAMINE HCL 100 MG TABLET (FP) PO SCH (21:41)
[2021-12-25] MEDS: CLOPIDOGREL BISULFATE 75 MG TABLET (FP) PO SCH (09:32)
[2021-12-25] MEDS: ASPIRIN 81 MG CHEWABLE TABLETS PO SCH (09:32)
[2021-12-25] MEDS: metoPROLOL SUCCINATE 25 MG TAB.SR.24H (FP) PO SCH (09:32)
[2021-12-25] MEDS: PRENATAL VITAMINS W/ FOLIC ACID TABLET (FP) PO SCH (09:32)
[2021-12-25] MEDS: NICOTINE 7 MG/24 HOURS TOPICAL PATCH TD SCH (09:34)
[2021-12-25] MEDS: ATORVASTATIN CA 20 MG TABLET (FP) PO SCH (21:05)
[2021-12-25] MEDS: MELATONIN 5 MG TABLETS PO SCH (21:06)
[2021-12-25] MEDS: THIAMINE HCL 100 MG TABLET (FP) PO SCH (21:06)
[2021-12-26] MEDS: ASPIRIN 81 MG CHEWABLE TABLETS PO SCH (10:18)
[2021-12-26] MEDS: metoPROLOL SUCCINATE 25 MG TAB.SR.24H (FP) PO SCH (10:18)
[2021-12-26] MEDS: CLOPIDOGREL BISULFATE 75 MG TABLET (FP) PO SCH (10:18)
[2021-12-26] MEDS: PRENATAL VITAMINS W/ FOLIC ACID TABLET (FP) PO SCH (10:18)
[2021-12-26] MEDS: NICOTINE 7 MG/24 HOURS TOPICAL PATCH TD SCH (10:18)
[2021-12-26] MEDS: ATORVASTATIN CA 20 MG TABLET (FP) PO SCH (21:22)
[2021-12-26] MEDS: THIAMINE HCL 100 MG TABLET (FP) PO SCH (21:22)
[2021-12-26] MEDS: MELATONIN 5 MG TABLETS PO SCH (21:22)
[2021-12-27] MEDS: PRENATAL VITAMINS W/ FOLIC ACID TABLET (FP) PO SCH (10:39)
[2021-12-27] MEDS: metoPROLOL SUCCINATE 25 MG TAB.SR.24H (FP) PO SCH (10:40)
[2021-12-27] MEDS: NICOTINE 7 MG/24 HOURS TOPICAL PATCH TD SCH (10:40)
[2021-12-27] MEDS: CLOPIDOGREL BISULFATE 75 MG TABLET (FP) PO SCH (10:40)
[2021-12-27] MEDS: ASPIRIN 81 MG CHEWABLE TABLETS PO SCH (10:40)
[2021-12-27] MEDS: ATORVASTATIN CA 20 MG TABLET (FP) PO SCH (21:02)
[2021-12-27] MEDS: THIAMINE HCL 100 MG TABLET (FP) PO SCH (21:02)
[2021-12-27] MEDS: MELATONIN 5 MG TABLETS PO SCH (21:02)
[2021-12-28] MEDS: PRENATAL VITAMINS W/ FOLIC ACID TABLET (FP) PO SCH (09:35)
[2021-12-28] MEDS: metoPROLOL SUCCINATE 25 MG TAB.SR.24H (FP) PO SCH (09:35)
[2021-12-28] MEDS: ASPIRIN 81 MG CHEWABLE TABLETS PO SCH (09:35)
[2021-12-28] MEDS: CLOPIDOGREL BISULFATE 75 MG TABLET (FP) PO SCH (09:35)
[2021-12-28] MEDS: NICOTINE 7 MG/24 HOURS TOPICAL PATCH TD SCH (09:36)
[2021-12-28] MEDS: MELATONIN 5 MG TABLETS PO SCH (21:07)
[2021-12-28] MEDS: THIAMINE HCL 100 MG TABLET (FP) PO SCH (21:07)
[2021-12-28] MEDS: ATORVASTATIN CA 20 MG TABLET (FP) PO SCH (21:07)
[2021-12-29] MEDS: NICOTINE 7 MG/24 HOURS TOPICAL PATCH TD SCH (09:48)
[2021-12-29] MEDS: PRENATAL VITAMINS W/ FOLIC ACID TABLET (FP) PO SCH (09:48)
[2021-12-29] MEDS: CLOPIDOGREL BISULFATE 75 MG TABLET (FP) PO SCH (09:48)
[2021-12-29] MEDS: metoPROLOL SUCCINATE 25 MG TAB.SR.24H (FP) PO SCH (09:48)
[2021-12-29] MEDS: ASPIRIN 81 MG CHEWABLE TABLETS PO SCH (09:48)
[2021-12-29] MEDS: ATORVASTATIN CA 20 MG TABLET (FP) PO SCH (21:23)
[2021-12-29] MEDS: MELATONIN 5 MG TABLETS PO SCH (21:23)
[2021-12-29] MEDS: THIAMINE HCL 100 MG TABLET (FP) PO SCH (21:23)
[2021-12-30] MEDS: ASPIRIN 81 MG CHEWABLE TABLETS PO SCH (10:24)
[2021-12-30] MEDS: NICOTINE 7 MG/24 HOURS TOPICAL PATCH TD SCH (10:24)
[2021-12-30] MEDS: PRENATAL VITAMINS W/ FOLIC ACID TABLET (FP) PO SCH (10:24)
[2021-12-30] MEDS: metoPROLOL SUCCINATE 25 MG TAB.SR.24H (FP) PO SCH (10:24)
[2021-12-30] MEDS: CLOPIDOGREL BISULFATE 75 MG TABLET (FP) PO SCH (10:24)
[2021-12-30] MEDS: ATORVASTATIN CA 20 MG TABLET (FP) PO SCH (21:45)
[2021-12-30] MEDS: THIAMINE HCL 100 MG TABLET (FP) PO SCH (21:45)
[2021-12-30] MEDS: MELATONIN 5 MG TABLETS PO SCH (21:45)
[2021-12-31 07:09] VITALS: BP 115/69; PULSE 68; TEMP 98.4
[2021-12-31] MEDS: CLOPIDOGREL BISULFATE 75 MG TABLET (FP) PO SCH (08:59)
[2021-12-31] MEDS: ASPIRIN 81 MG CHEWABLE TABLETS PO SCH (08:59)
[2021-12-31] MEDS: NICOTINE 7 MG/24 HOURS TOPICAL PATCH TD SCH (08:59)
[2021-12-31] MEDS: PRENATAL VITAMINS W/ FOLIC ACID TABLET (FP) PO SCH (08:59)
[2021-12-31] MEDS: metoPROLOL SUCCINATE 25 MG TAB.SR.24H (FP) PO SCH (08:59)
== END 2021-12-31 09:09 | disposition home or self-care (01) | DRG 772 ==
LOC: YASAS 11:25 → Y3W 11:27
PROVIDERS: ADMIT Allergy & Immunology; ATTEND Psychiatry & Neurology Pain Medicine
PROC: HZ42ZZZ Group Counseling for Substance Abuse Treatment, Cognitive-Behavioral (ICD-10-PCS; principal; 2021-12-18)
DX: F10.20 Alcohol dependence, uncomplicated (principal); F14.20 Cocaine dependence, uncomplicated; F16.20 Hallucinogen dependence, uncomplicated; F12.20 Cannabis dependence, uncomplicated; F17.210 Nicotine dependence, cigarettes, uncomplicated; F41.9 Anxiety disorder, unspecified; G47.00 Insomnia, unspecified; I25.10 Atherosclerotic heart disease of native coronary artery without angina pectoris; I10 Essential (primary) hypertension; J45.20 Mild intermittent asthma, uncomplicated
CPT/HCPCS: 36415; 87389

== ENCOUNTER 2022-01-18 12:53 | Inpatient (IN) | payer OTHER ==
[2022-01-18 13:52] VITALS: BMI 28.3
[2022-01-18] MEDS ORDERED: ACETAMINOPHEN 325 MG TABLET (FP) PO PRN ×2 (17:15)
[2022-01-18] MEDS ORDERED: BISMUTH SUBSALICYLATE 524 MG/30 ML PO PRN (17:15)
[2022-01-18] MEDS ORDERED: ONDANSETRON *ODT* 4 MG TABLET SL PRN (17:15)
[2022-01-18] MEDS ORDERED: NALOXONE HCL (KLOXXADO) 8 MG SPRAY NS PRN (17:15)
[2022-01-18] MEDS ORDERED: DICYCLOMINE HCL 10 MG CAPSULE PO PRN (17:15)
[2022-01-18] MEDS ORDERED: BENZOCAINE/MENTHOL (CHLORASEPTIC ) LOZENGE MM PRN (17:15)
[2022-01-18] MEDS ORDERED: POLYETHYLENE GLYCOL (HEALTHYLAX) 3350 17 GM PACKET PO PRN (17:15)
[2022-01-18] MEDS ORDERED: IBUPROFEN 400 MG TABLET (FP) PO PRN (17:15)
[2022-01-18] MEDS ORDERED: NICOTINE 10 MG CARTRIDGE (INHALER) IH PRN (17:15)
[2022-01-18] MEDS ORDERED: IBUPROFEN 600 MG TABLET (FP) PO PRN (17:15)
[2022-01-18] MEDS ORDERED: LOPERAMIDE HCL 2 MG CAPSULE PO PRN (17:15)
[2022-01-18] MEDS ORDERED: MAG HYDROX/AL HYDROX/SIMETH 30 ML UNIT-DOSE CUP PO PRN (17:15)
[2022-01-18] MEDS ORDERED: MAGNESIUM HYDROX 2400MG/30ML ORAL SUSPENSION 30 ML CUP PO PRN (17:15)
[2022-01-18] MEDS: PRENATAL VITAMINS W/ FOLIC ACID TABLET (FP) PO SCH (20:56)
[2022-01-18] MEDS: chlordiazePOXIDE HCL 25 MG CAPSULE PO SCH (22:39)
[2022-01-18] MEDS: MELATONIN 5 MG TABLETS PO SCH (22:39)
[2022-01-18] MEDS: THIAMINE HCL 100 MG TABLET (FP) PO SCH (22:39)
[2022-01-19] MEDS: chlordiazePOXIDE HCL 25 MG CAPSULE PO SCH ×4 (06:17→22:34)
[2022-01-19 09:39] LABS: HEMOGLOBIN 12.9 GM/dL (11.7-16.9); MCH 29.5 pg (25.7-33.7); MCHC 32.2 g/dl (32.0-35.9); MEAN CELL VOLUME 91.4 fl (80-96); MEAN PLT VOLUME 7.8 fl (7.5-11.1); PLATELET COUNT 221 10^3/uL (134-434); RBC 4.37 M/mm3 (4.00-5.60); RDW 13.6 % (11.9-15.9); WHITE BLOOD COUNT 4.1 K/mm3 (4.0-10.0)
[2022-01-19] MEDS ORDERED: ALBUTEROL SO4 HFA INHALER IH PRN (09:56)
[2022-01-19 10:00] LABS: BLOOD UREA NITROGEN 19.8 mg/dL (7-18); CALCIUM 8.3 mg/dL (8.5-10.1)
[2022-01-19 10:01] LABS: ALBUMIN 3.1 g/dl (3.4-5.0)
[2022-01-19 10:04] LABS: CREATININE 1.1 mg/dL (0.55-1.3)
[2022-01-19 10:05] LABS: BILIRUBIN,TOTAL 0.3 mg/dL (0.2-1); TOT PROT 6.4 g/dl (6.4-8.2)
[2022-01-19] MEDS: CLOPIDOGREL BISULFATE 75 MG TABLET (FP) PO SCH (10:30)
[2022-01-19] MEDS: PRENATAL VITAMINS W/ FOLIC ACID TABLET (FP) PO SCH (10:30)
[2022-01-19] MEDS: ASPIRIN 81 MG CHEWABLE TABLETS PO SCH (10:30)
[2022-01-19] MEDS: ATORVASTATIN CA 20 MG TABLET (FP) PO SCH (22:34)
[2022-01-19] MEDS: THIAMINE HCL 100 MG TABLET (FP) PO SCH (22:34)
[2022-01-19] MEDS: MELATONIN 5 MG TABLETS PO SCH (22:34)
[2022-01-20] MEDS: chlordiazePOXIDE HCL 25 MG CAPSULE PO SCH ×4 (06:22→22:51)
[2022-01-20] MEDS: CLOPIDOGREL BISULFATE 75 MG TABLET (FP) PO SCH (10:45)
[2022-01-20] MEDS: ASPIRIN 81 MG CHEWABLE TABLETS PO SCH (10:45)
[2022-01-20] MEDS: PRENATAL VITAMINS W/ FOLIC ACID TABLET (FP) PO SCH (10:45)
[2022-01-20] MEDS: ATORVASTATIN CA 20 MG TABLET (FP) PO SCH (22:47)
[2022-01-20] MEDS: MELATONIN 5 MG TABLETS PO SCH (22:47)
[2022-01-20] MEDS: THIAMINE HCL 100 MG TABLET (FP) PO SCH (22:48)
[2022-01-21] MEDS: chlordiazePOXIDE HCL 10 MG CAPSULE PO SCH ×4 (06:11→22:03)
[2022-01-21] MEDS: ASPIRIN 81 MG CHEWABLE TABLETS PO SCH (10:16)
[2022-01-21] MEDS: CLOPIDOGREL BISULFATE 75 MG TABLET (FP) PO SCH (10:16)
[2022-01-21] MEDS: PRENATAL VITAMINS W/ FOLIC ACID TABLET (FP) PO SCH (10:17)
[2022-01-21 12:41] VITALS: RESP 18
[2022-01-21] MEDS: THIAMINE HCL 100 MG TABLET (FP) PO SCH (21:47)
[2022-01-21] MEDS: MELATONIN 5 MG TABLETS PO SCH (21:47)
[2022-01-21] MEDS: ATORVASTATIN CA 20 MG TABLET (FP) PO SCH (21:47)
[2022-01-22] MEDS: chlordiazePOXIDE HCL 10 MG CAPSULE PO SCH ×2 (05:50→18:17)
[2022-01-22] MEDS: CLOPIDOGREL BISULFATE 75 MG TABLET (FP) PO SCH (10:48)
[2022-01-22] MEDS: ASPIRIN 81 MG CHEWABLE TABLETS PO SCH (10:48)
[2022-01-22] MEDS: PRENATAL VITAMINS W/ FOLIC ACID TABLET (FP) PO SCH (10:48)
[2022-01-22] MEDS: MELATONIN 5 MG TABLETS PO SCH (23:05)
[2022-01-22] MEDS: THIAMINE HCL 100 MG TABLET (FP) PO SCH (23:05)
[2022-01-22] MEDS: METHOCARBAMOL 500 MG TABLET PO PRN (23:05)
[2022-01-22] MEDS: ATORVASTATIN CA 20 MG TABLET (FP) PO SCH (23:05)
[2022-01-23] MEDS ORDERED: chlordiazePOXIDE HCL 10 MG CAPSULE PO ONE (05:00)
[2022-01-23] MEDS: CLOPIDOGREL BISULFATE 75 MG TABLET (FP) PO SCH (10:17)
[2022-01-23] MEDS: ASPIRIN 81 MG CHEWABLE TABLETS PO SCH (10:17)
[2022-01-23] MEDS: PRENATAL VITAMINS W/ FOLIC ACID TABLET (FP) PO SCH (10:17)
[2022-01-23] MEDS: ATORVASTATIN CA 20 MG TABLET (FP) PO SCH (21:39)
[2022-01-23] MEDS: THIAMINE HCL 100 MG TABLET (FP) PO SCH (21:39)
[2022-01-23] MEDS: MELATONIN 5 MG TABLETS PO SCH (21:39)
[2022-01-23] MEDS: METHOCARBAMOL 500 MG TABLET PO PRN (21:40)
[2022-01-24 09:08] VITALS: BP 101/59; PULSE 68; TEMP 97
[2022-01-24] MEDS: CLOPIDOGREL BISULFATE 75 MG TABLET (FP) PO SCH (10:14)
[2022-01-24] MEDS: ASPIRIN 81 MG CHEWABLE TABLETS PO SCH (10:14)
[2022-01-24] MEDS: PRENATAL VITAMINS W/ FOLIC ACID TABLET (FP) PO SCH (10:14)
== END 2022-01-24 12:13 | disposition home or self-care (01) | DRG 775 ==
LOC: YASAS 12:53 → Y3N 17:38
PROVIDERS: ADMIT Allergy & Immunology; ATTEND Family Medicine Addiction Medicine
PROC: HZ2ZZZZ Detoxification Services for Substance Abuse Treatment (ICD-10-PCS; principal; 2022-01-18)
DX: F10.230 Alcohol dependence with withdrawal, uncomplicated (principal); F12.20 Cannabis dependence, uncomplicated; F17.210 Nicotine dependence, cigarettes, uncomplicated; F41.9 Anxiety disorder, unspecified; U07.1 COVID-19; I25.10 Atherosclerotic heart disease of native coronary artery without angina pectoris; I10 Essential (primary) hypertension; E78.5 Hyperlipidemia, unspecified; J45.909 Unspecified asthma, uncomplicated; R79.89 Other specified abnormal findings of blood chemistry; R76.8 Other specified abnormal immunological findings in serum; Z86.19 Personal history of other infectious and parasitic diseases; Z28.310 Unvaccinated for COVID-19; Z28.9 Immunization not carried out for unspecified reason
CPT/HCPCS: 36415; 80053; 85027; 86593; 86780; 87811; C9803-CS; U0003; U0005

== ENCOUNTER 2022-06-19 10:49 | Inpatient (IN) | payer OTHER ==
[2022-06-19 11:15] VITALS: BMI 30.5
[2022-06-19] MEDS ORDERED: IBUPROFEN 400 MG TABLET (FP) PO PRN (11:46)
[2022-06-19] MEDS ORDERED: BENZONATATE 200 MG CAPSULE PO PRN (11:46)
[2022-06-19] MEDS ORDERED: BENZOCAINE/MENTHOL (CHLORASEPTIC ) LOZENGE MM PRN (11:46)
[2022-06-19] MEDS ORDERED: MAG HYDROX/AL HYDROX/SIMETH 30 ML UNIT-DOSE CUP PO PRN (11:46)
[2022-06-19] MEDS ORDERED: ONDANSETRON *ODT* 4 MG TABLET SL PRN (11:46)
[2022-06-19] MEDS ORDERED: NALOXONE HCL 0.4 MG/ML VIAL IM PRN (11:46)
[2022-06-19] MEDS ORDERED: hydrOXYzine PAMOATE 25 MG CAPSULE (FP) PO PRN (11:46)
[2022-06-19] MEDS ORDERED: BISMUTH SUBSALICYLATE 524 MG/30 ML PO PRN (11:46)
[2022-06-19] MEDS ORDERED: MAGNESIUM HYDROX 2400MG/30ML ORAL SUSPENSION 30 ML CUP PO PRN (11:46)
[2022-06-19] MEDS ORDERED: DICYCLOMINE HCL 10 MG CAPSULE PO PRN (11:46)
[2022-06-19] MEDS ORDERED: POLYETHYLENE GLYCOL (HEALTHYLAX) 3350 17 GM PACKET PO PRN (11:46)
[2022-06-19] MEDS ORDERED: guaiFENesin 600 MG TABLET.ER (FP) PO PRN (11:46)
[2022-06-19] MEDS ORDERED: NALOXONE HCL (KLOXXADO) 8 MG SPRAY NS PRN (11:46)
[2022-06-19] MEDS ORDERED: LOPERAMIDE HCL 2 MG CAPSULE PO PRN (11:46)
[2022-06-19] MEDS ORDERED: IBUPROFEN 600 MG TABLET (FP) PO PRN (11:46)
[2022-06-19] MEDS ORDERED: NICOTINE POLACRILEX 2 MG GUM BUC PRN (11:46)
[2022-06-19] MEDS ORDERED: ALBUTEROL SO4 HFA INHALER IH PRN (13:28)
[2022-06-19] MEDS: THIAMINE HCL 100 MG TABLET (FP) PO SCH (22:33)
[2022-06-19] MEDS: ATORVASTATIN CA 20 MG TABLET (FP) PO SCH (22:33)
[2022-06-19] MEDS: MELATONIN 5 MG TABLETS PO SCH (22:33)
[2022-06-20 09:55] LABS: HEMOGLOBIN 12.9 GM/dL (11.7-16.9); MCH 29.3 pg (25.7-33.7); MEAN CELL VOLUME 86.1 fl (80-96); MEAN PLT VOLUME 7.5 fl (7.5-11.1); PLATELET COUNT 183 10^3/uL (134-434); RBC 4.42 M/mm3 (4.00-5.60); RDW 13.7 % (11.9-15.9); WHITE BLOOD COUNT 5.3 K/mm3 (4.0-10.0)
[2022-06-20 09:57] LABS: POTASSIUM 4.5 mmol/L (3.5-5.1)
[2022-06-20 10:03] LABS: ALBUMIN 3.3 g/dl (3.4-5.0); BLOOD UREA NITROGEN 11.8 mg/dL (7-18); CALCIUM 8.8 mg/dL (8.5-10.1)
[2022-06-20 10:06] LABS: CREATININE 1.2 mg/dL (0.55-1.3)
[2022-06-20] MEDS: PRENATAL VITAMINS W/ FOLIC ACID TABLET (FP) PO SCH (10:07)
[2022-06-20 10:08] LABS: BILIRUBIN,TOTAL 0.9 mg/dL (0.2-1); TOT PROT 6.9 g/dl (6.4-8.2)
[2022-06-20] MEDS: ASPIRIN 81 MG CHEWABLE TABLETS PO SCH (10:08)
[2022-06-20] MEDS: metoPROLOL SUCCINATE 25 MG TAB.SR.24H (FP) PO SCH (10:08)
[2022-06-20] MEDS: CLOPIDOGREL BISULFATE 75 MG TABLET (FP) PO SCH (10:08)
[2022-06-20] MEDS ORDERED: diazePAM 5 MG TABLET PO PRN (10:12)
[2022-06-20] MEDS: diazePAM 5 MG TABLET PO SCH ×4 (12:14→22:45)
[2022-06-20] MEDS: MELATONIN 5 MG TABLETS PO SCH (22:25)
[2022-06-20] MEDS: THIAMINE HCL 100 MG TABLET (FP) PO SCH (22:25)
[2022-06-20] MEDS: ATORVASTATIN CA 20 MG TABLET (FP) PO SCH (22:25)
[2022-06-21] MEDS: diazePAM 5 MG TABLET PO SCH ×4 (05:46→22:16)
[2022-06-21] MEDS: CLOPIDOGREL BISULFATE 75 MG TABLET (FP) PO SCH (10:20)
[2022-06-21] MEDS: PRENATAL VITAMINS W/ FOLIC ACID TABLET (FP) PO SCH (10:20)
[2022-06-21] MEDS: ASPIRIN 81 MG CHEWABLE TABLETS PO SCH (10:20)
[2022-06-21] MEDS: metoPROLOL SUCCINATE 25 MG TAB.SR.24H (FP) PO SCH (10:31)
[2022-06-21] MEDS: MELATONIN 5 MG TABLETS PO SCH (22:16)
[2022-06-21] MEDS: THIAMINE HCL 100 MG TABLET (FP) PO SCH (22:16)
[2022-06-21] MEDS: ATORVASTATIN CA 20 MG TABLET (FP) PO SCH (22:16)
[2022-06-22] MEDS ORDERED: diazePAM 5 MG TABLET PO SCH (06:00)
[2022-06-22] MEDS ORDERED: LORazepam 1 MG TABLET PO PRN (10:11)
[2022-06-22] MEDS: CLOPIDOGREL BISULFATE 75 MG TABLET (FP) PO SCH (10:37)
[2022-06-22] MEDS: PRENATAL VITAMINS W/ FOLIC ACID TABLET (FP) PO SCH (10:37)
[2022-06-22] MEDS: metoPROLOL SUCCINATE 25 MG TAB.SR.24H (FP) PO SCH (10:37)
[2022-06-22] MEDS: ASPIRIN 81 MG CHEWABLE TABLETS PO SCH (10:37)
[2022-06-22] MEDS: LORazepam 1 MG TABLET PO SCH ×3 (10:37→22:07)
[2022-06-22] MEDS: MELATONIN 5 MG TABLETS PO SCH (22:06)
[2022-06-22] MEDS: METHOCARBAMOL 500 MG TABLET PO PRN (22:07)
[2022-06-22] MEDS: THIAMINE HCL 100 MG TABLET (FP) PO SCH (22:07)
[2022-06-22] MEDS: ATORVASTATIN CA 20 MG TABLET (FP) PO SCH (22:07)
[2022-06-23] MEDS ORDERED: LORazepam 0.5 MG TABLET PO PRN
[2022-06-23] MEDS ORDERED: diazePAM 5 MG TABLET PO SCH (06:00)
[2022-06-23] MEDS: LORazepam 0.5 MG TABLET PO SCH ×4 (06:02→22:24)
[2022-06-23] MEDS: PRENATAL VITAMINS W/ FOLIC ACID TABLET (FP) PO SCH (10:42)
[2022-06-23] MEDS: metoPROLOL SUCCINATE 25 MG TAB.SR.24H (FP) PO SCH (10:43)
[2022-06-23] MEDS: CLOPIDOGREL BISULFATE 75 MG TABLET (FP) PO SCH (10:43)
[2022-06-23] MEDS: ASPIRIN 81 MG CHEWABLE TABLETS PO SCH (10:43)
[2022-06-23] MEDS: ACETAMINOPHEN 325 MG TABLET (FP) PO PRN (17:34)
[2022-06-23] MEDS: METHOCARBAMOL 500 MG TABLET PO PRN (17:36)
[2022-06-23] MEDS ORDERED: ACETAMINOPHEN 325 MG TABLET (FP) PO PRN (17:40)
[2022-06-23] MEDS: MELATONIN 5 MG TABLETS PO SCH (22:23)
[2022-06-23] MEDS: ATORVASTATIN CA 20 MG TABLET (FP) PO SCH (22:24)
[2022-06-23] MEDS: THIAMINE HCL 100 MG TABLET (FP) PO SCH (22:24)
[2022-06-24] MEDS: ACETAMINOPHEN 325 MG TABLET (FP) PO PRN (03:52)
[2022-06-24] MEDS: LORazepam 0.5 MG TABLET PO SCH (05:50)
[2022-06-24] MEDS ORDERED: diazePAM 5 MG TABLET PO ONE (06:00)
[2022-06-24 06:45] VITALS: TEMP 97.3
[2022-06-24 09:15] VITALS: BP 124/76; PULSE 68; RESP 18
[2022-06-24] MEDS: ASPIRIN 81 MG CHEWABLE TABLETS PO SCH (10:32)
[2022-06-24] MEDS: PRENATAL VITAMINS W/ FOLIC ACID TABLET (FP) PO SCH (10:32)
[2022-06-24] MEDS: metoPROLOL SUCCINATE 25 MG TAB.SR.24H (FP) PO SCH (10:32)
[2022-06-24] MEDS: CLOPIDOGREL BISULFATE 75 MG TABLET (FP) PO SCH (10:32)
== END 2022-06-24 10:34 | disposition other institution (70) | DRG 775 ==
LOC: YASAS 10:49 → Y3N 12:54
PROVIDERS: ADMIT Allergy & Immunology; ATTEND Surgery
PROC: HZ2ZZZZ Detoxification Services for Substance Abuse Treatment (ICD-10-PCS; principal; 2022-06-19)
DX: F10.230 Alcohol dependence with withdrawal, uncomplicated (principal); F17.210 Nicotine dependence, cigarettes, uncomplicated; F41.9 Anxiety disorder, unspecified; I25.10 Atherosclerotic heart disease of native coronary artery without angina pectoris; I10 Essential (primary) hypertension; E78.2 Mixed hyperlipidemia; R76.8 Other specified abnormal immunological findings in serum; Z86.19 Personal history of other infectious and parasitic diseases; Z79.02 Long term (current) use of antithrombotics/antiplatelets; Z79.2 Long term (current) use of antibiotics
CPT/HCPCS: 36415; 80053; 85027; 86593; 86780; C9803-CS; U0003; U0005

== ENCOUNTER 2023-08-26 13:30 | Inpatient (IN) | payer OTHER ==
[2023-08-26] MEDS ORDERED: BISMUTH SUBSALICYLATE 524 MG/30 ML PO PRN (19:00)
[2023-08-26] MEDS ORDERED: BENZONATATE 200 MG CAPSULE PO PRN (19:00)
[2023-08-26] MEDS ORDERED: IBUPROFEN 400 MG TABLET (FP) PO PRN (19:00)
[2023-08-26] MEDS ORDERED: ONDANSETRON *ODT* 4 MG TABLET SL PRN (19:00)
[2023-08-26] MEDS ORDERED: LOPERAMIDE HCL 2 MG CAPSULE PO PRN (19:00)
[2023-08-26] MEDS ORDERED: ACETAMINOPHEN 325 MG TABLET (FP) PO PRN (19:00)
[2023-08-26] MEDS ORDERED: hydrOXYzine PAMOATE 25 MG CAPSULE (FP) PO PRN (19:00)
[2023-08-26] MEDS ORDERED: METHOCARBAMOL 500 MG TABLET PO PRN (19:00)
[2023-08-26] MEDS ORDERED: DICYCLOMINE HCL 10 MG CAPSULE PO PRN (19:00)
[2023-08-26] MEDS ORDERED: MAGNESIUM HYDROX 2400MG/30ML ORAL SUSPENSION 30 ML CUP PO PRN (19:00)
[2023-08-26] MEDS ORDERED: ALBUTEROL SO4 HFA INHALER IH PRN (19:02)
[2023-08-26] MEDS: ATORVASTATIN CA 20 MG TABLET (FP) PO SCH (23:10)
[2023-08-27] MEDS: PRENATAL VITAMINS W/ FOLIC ACID TABLET (FP) PO SCH (09:34)
[2023-08-27] MEDS: metoPROLOL SUCCINATE 25 MG TAB.SR.24H (FP) PO SCH (09:34)
[2023-08-27] MEDS: ASPIRIN 81 MG CHEWABLE TABLETS PO SCH (09:35)
[2023-08-27] MEDS: THIAMINE 100 MG TABLET PO SCH (09:35)
[2023-08-27] MEDS: CLOPIDOGREL BISULFATE 75 MG TABLET (FP) PO SCH (09:35)
[2023-08-28] MEDS: NALOXONE (NARCAN) HCL 4 MG/0.1 ML SPRAY NS ONE (09:52)
[2023-08-28 12:26] VITALS: RESP 18
[2023-08-28 16:32] VITALS: BP 110/63; PULSE 68; TEMP 98.7
== END 2023-08-28 17:47 | disposition other institution (70) | DRG 774 ==
LOC: YASAS 13:30 → Y6N 19:56
PROVIDERS: ADMIT Allergy & Immunology; ATTEND Surgery
PROC: HZ2ZZZZ Detoxification Services for Substance Abuse Treatment (ICD-10-PCS; principal; 2023-08-26)
DX: F10.20 Alcohol dependence, uncomplicated (principal); F14.10 Cocaine abuse, uncomplicated; F16.20 Hallucinogen dependence, uncomplicated; F12.20 Cannabis dependence, uncomplicated; F19.24 Other psychoactive substance dependence with psychoactive substance-induced mood disorder; F41.9 Anxiety disorder, unspecified; E78.2 Mixed hyperlipidemia; I25.10 Atherosclerotic heart disease of native coronary artery without angina pectoris; I10 Essential (primary) hypertension; J45.30 Mild persistent asthma, uncomplicated; Z86.11 Personal history of tuberculosis; Z86.19 Personal history of other infectious and parasitic diseases
CPT/HCPCS: 80305; 80307; 87811

== ENCOUNTER 2023-08-28 17:58 | Inpatient (IN) | payer OTHER ==
[~2023-08-28 17:58] MED LIST: ACETAMINOPHEN 325 MG TABLET (FP) PO PRN; ALBUTEROL SO4 HFA INHALER IH PRN; BENZOCAINE/MENTHOL (CHLORASEPTIC ) LOZENGE MM PRN; BENZONATATE 200 MG CAPSULE PO PRN; IBUPROFEN 400 MG TABLET (FP) PO PRN; IBUPROFEN 600 MG TABLET (FP) PO PRN; LOPERAMIDE HCL 2 MG CAPSULE PO PRN; MAG HYDROX/AL HYDROX/SIMETH 30 ML UNIT-DOSE CUP PO PRN; MAGNESIUM HYDROX 2400MG/30ML ORAL SUSPENSION 30 ML CUP PO PRN; NICOTINE 7 MG/24 HOURS TOPICAL PATCH TD PRN; NICOTINE POLACRILEX 2 MG GUM BUC PRN; NICOTINE POLACRILEX 2 MG LOZENGE BC PRN; POLYETHYLENE GLYCOL (HEALTHYLAX) 3350 17 GM PACKET PO PRN; guaiFENesin 600 MG TABLET.ER (FP) PO PRN
[2023-08-28] MEDS: THIAMINE 100 MG TABLET PO SCH (23:59)
[2023-08-28] MEDS: MELATONIN 5 MG TABLETS PO SCH (23:59)
[2023-08-28] MEDS: ATORVASTATIN CA 20 MG TABLET (FP) PO SCH (23:59)
[2023-08-29] MEDS: CLOPIDOGREL BISULFATE 75 MG TABLET (FP) PO SCH (09:32)
[2023-08-29] MEDS: ASPIRIN 81 MG CHEWABLE TABLETS PO SCH (09:32)
[2023-08-29] MEDS: PRENATAL VITAMINS W/ FOLIC ACID TABLET (FP) PO SCH (09:32)
[2023-08-29] MEDS: metoPROLOL SUCCINATE 25 MG TAB.SR.24H (FP) PO SCH (09:32)
[2023-09-08 12:10] LABS: POTASSIUM 4.5 mmol/L (3.5-5.1)
[2023-09-08 12:11] LABS: HEMATOCRIT 37.5 % (35.4-49); HEMOGLOBIN 12.5 GM/dL (11.7-16.9); MCH 29.4 pg (25.7-33.7); MCHC 33.4 g/dl (32.0-35.9); MEAN CELL VOLUME 87.9 fl (80-96); MEAN PLT VOLUME 8.1 fl (7.5-11.1); PLATELET COUNT 212 10^3/uL (134-434); RBC 4.26 M/mm3 (4.00-5.60); RDW 14.4 % (11.9-15.9); WHITE BLOOD COUNT 6.7 K/mm3 (4.0-10.0)
[2023-09-08 12:29] LABS: ALBUMIN 3.4 g/dl (3.4-5.0); BLOOD UREA NITROGEN 21.3 mg/dL (7-18); CALCIUM 8.8 mg/dL (8.5-10.1)
[2023-09-08 12:31] LABS: CREATININE 1.3 mg/dL (0.55-1.3)
[2023-09-08 12:33] LABS: BILIRUBIN,TOTAL 0.3 mg/dL (0.2-1)
[2023-09-08 12:35] LABS: TOT PROT 6.8 g/dl (6.4-8.2)
[2023-09-11] MEDS: LACTULOSE 20 GM/30 ML UDC (FOR ORAL USE ONLY) PO SCH (14:31)
[2023-09-23] MEDS: hydrOXYzine PAMOATE 25 MG CAPSULE (FP) PO PRN (21:19)
[2023-09-25 06:40] VITALS: TEMP 96.9
[2023-09-25 09:09] VITALS: BP 100/61; PULSE 86; RESP 16
== END 2023-09-25 09:51 | disposition home or self-care (01) | DRG 772 ==
LOC: YASAS 17:58 → Y3NR 17:59 → Y3W 08-29 09:59
PROVIDERS: ADMIT Allergy & Immunology; ATTEND Psychiatry & Neurology Pain Medicine
PROC: HZ42ZZZ Group Counseling for Substance Abuse Treatment, Cognitive-Behavioral (ICD-10-PCS; principal; 2023-08-28)
DX: F10.20 Alcohol dependence, uncomplicated (principal); F16.10 Hallucinogen abuse, uncomplicated; I10 Essential (primary) hypertension; E78.5 Hyperlipidemia, unspecified; J45.30 Mild persistent asthma, uncomplicated; R76.11 Nonspecific reaction to tuberculin skin test without active tuberculosis; Z86.19 Personal history of other infectious and parasitic diseases
CPT/HCPCS: 36415; 80053; 82140; 85027; 86593; 86780; 87635